=== PATIENT | female | born 1940 | race Caucasian/White ===

== ENCOUNTER 2017-04-09 21:07 | Inpatient (IN) | payer MEDICARE, BC ==
[2017-04-09 21:27] LABS: Basophils # (A) 0.1 k/uL (0-0.2); Basophils % (A) 1 %; CH 30.9; CHCM 33.2; Eosinophils # (A) 0.2 k/uL (0-0.7); Eosinophils % (A) 2 %; HDW 2.26; Luc # (Auto) 0.19; Luc % (Auto) 2; Lymphocytes # (A) 2.2 k/uL (1.0-4.8); Lymphocytes % (A) 19 %; MCH 30.6 pg (25.0-35.0); MCHC 32.7 g/dL (31.0-37.0); MCV 93.6 fL (80.0-100.0); Mean Platelet Volume 7.9; Monocytes # (A) 0.7 k/uL (0-1.0); Monocytes % (A) 5 %; Neutrophils # (A) 8.7 k/uL (1.3-7.7); Neutrophils % (A) 72 %; RBC 5.23 m/uL (3.80-5.40); RDW 14.6 % (11.5-15.5); WBC 12.1 k/uL (3.8-10.6); WBC (Perox) 11.81
[2017-04-09 21:43] LABS: Partial Thromboplastin Time 23.4 sec (22.0-30.0); Prothrombin Time 10.4 sec (9.0-12.0)
--- NOTE | 2017-04-09 21:43 | XR ---
EXAMINATION TYPE: XR chest 2V DATE OF EXAM: 04/09/2017 COMPARISON: NONE HISTORY: Chest pain TECHNIQUE: Frontal and lateral views of the chest are obtained. FINDINGS: Heart is enlarged. There is a large hiatal hernia. There is some linear density at the xander g bases. Thoracic aorta is atheromatous. There are chest leads. IMPRESSION: Hiatal hernia. Cardiomegaly. Patchy atelectasis at the lung bases. No heart failure.
[2017-04-09 21:44] LABS: ALT 41 U/L (9-52); AST 37 U/L (14-36); Alkaline Phosphatase 62 U/L (38-126); Anion Gap 9 mmol/L; Blood Urea Nitrogen 17 mg/dL (7-17); Calcium 9.8 mg/dL (8.4-10.2); Carbon Dioxide 25 mmol/L (22-30); Chloride 99 mmol/L (98-107); Glucose 92 mg/dL (74-99); Magnesium 1.7 mg/dL (1.6-2.3); Non-African American GFR(MDRD) 56 (>60 ml/min/1.73 sqM); Potassium 3.9 mmol/L (3.5-5.1); Sodium 133 mmol/L (137-145); Total Bilirubin 0.4 mg/dL (0.2-1.3); Total Protein 6.6 g/dL (6.3-8.2)
--- NOTE | 2017-04-09 21:49 | ED ---
Chest Pain HPI - General Chief Complaint: Chest Pain Stated Complaint: chest pain Time Seen by Provider: 04/09/17 21:46 Source: EMS Mode of arrival: EMS Limitations: no limitations - History of Present Illness Initial Comments: This patient is a 76-year-old woman who presents to be evaluated for left-sided chest pain that is been going on intermittently since approximately 9 AM this morning. The patient's states that it seems to be associated with her use of albuterol. She has also had periods of her heart racing with a rate up to the 160s. She states that she does have history of SVT. She has seen Dr. Tabares previously for this including having a stress test at cardiology clinic. Patient indicates that the pain is in the left side, intermittent, aching. She has not noticed relieving factors earlier today. It did seem to be made worse by using the albuterol. She did take nitroglycerin and that did help to relieve the last episode. She did have some associated nausea. She states that she is not having pain currently MD Complaint: chest pain Onset/Timin -: days(s) Onset: during rest Pain Location: left chest Pain Radiation: none Severity: moderate Quality: aching Consistency: intermittent Improves With: nothing Worsens With: other (Albuterol) Context: recent illness (COPD) Anginal Symptoms: nausea Other Symptoms: cough Treatments Prior to Arrival: oxygen - Related Data Home Medications Medication Instructions Recorded Confirmed Albuterol Inhaler [Ventolin Hfa 1 - 2 puff INHALATION RT-QID PRN 04/09/17 Inhaler] Ascorbic Acid [Vitamin C] 500 mg PO 04/09/17 04/09/17 Calcium Carbonate [Calcium] 600 mg PO BID 04/09/17 04/09/17 Cholecalciferol [Vitamin D3] 1,000 unit PO 04/09/17 04/09/17 Citalopram Hydrobromide [CeleXA] 20 mg PO 04/09/17 04/09/17 Clopidogrel [Plavix] 75 mg PO DAILY 04/09/17 04/09/17 Isosorbide Mononitrate ER [Imdur] 30 mg PO BID 04/09/17 04/09/17 Losartan/Hydrochlorothiazide 1 tab PO DAILY 04/09/17 04/09/17 [Hyzaar 50-12.5 Tablet] Multivitamins, Thera [Multivitamin 1 tab PO DAILY 04/09/17 04/09/17 (formulary)] Pravastatin Sodium [Pravachol] 10 mg PO Q48H 04/09/17 04/09/17 Ubidecarenone [Co Q-10] 100 mg PO DAILY 04/09/17 04/09/17 Allergies Allergy/AdvReac Type Severity Reaction Status Date / Time No Known Allergies Allergy Verified 04/09/17 21:14 Review of Systems ROS Statement: Those systems with pertinent positive or pertinent negative responses have been documented in the HPI. ROS Other: All systems not noted in ROS Statement are negative. Constitutional: Denies: fever, chills Respiratory: Reports: as per HPI, cough, dyspnea, wheezes. Denies: hemoptysis Cardiovascular: Reports: as per HPI, chest pain, dyspnea on exertion. Denies: palpitations, orthopnea, edema, syncope Gastrointestinal: Reports: nausea. Denies: abdominal pain, vomiting, diarrhea Genitourinary: Denies: dysuria Musculoskeletal: Denies: back pain Skin: Denies: rash Neurological: Denies: headache, weakness, numbness EKG Findings - EKG Results: EKG: interpreted by ERMD, sinus rhythm (Rate 84 bpm), normal axis, normal QRS, normal ST/T - Blocks, [place], Hypertrophy, ST Abn: AV and intraventricular conduction: 1 AV block Past Medical History Past Medical History: COPD, Hypertension, Myocardial Infarction ([place]), Supraventricular Tachycardia (SVT) History of Any Multi-Drug Resistant Organisms: None Reported Past Surgical History: No Surgical Hx Reported Past Psychological History: Anxiety Smoking Status: Never smoker Past Alcohol Use History: None Reported Past Drug Use History: None Reported General Exam Limitations: no limitations General appearance: alert, in no apparent distress Head exam: Present: atraumatic, normocephalic Eye exam: Present: normal appearance. Absent: scleral icterus, conjunctival injection Neck exam: Present: normal inspection Respiratory exam: Present: wheezes. Absent: respiratory distress, rales, rhonchi, stridor, decreased breath sounds, prolonged expiratory Cardiovascular Exam: Present: regular rate, normal rhythm, systolic murmur ( Grade 1/6 systolic ejection murmur). Absent: diastolic murmur, rubs, gallop GI/Abdominal exam: Present: soft. Absent: distended, tenderness, guarding, rebound, mass Extremities exam: Present: normal inspection, normal capillary refill. Absent: pedal edema, calf tenderness Back exam: Present: normal inspection. Absent: CVA tenderness (R), CVA tenderness (L) Neurological exam: Present: alert Skin exam: Present: warm, dry, intact, normal color. Absent: rash Course Vital Signs 04/09/17 04/09/17 04/09/17 21:09 21:22 21:52 Temperature 97.6 F Pulse Rate 168 H Pulse Rate [ 75 [employer] ] Respiratory 22 20 22 Rate Blood Pressure 124/62 O2 Sat by Pulse 94 L 98 Oximetry 04/09/17 04/09/17 04/10/17 21:56 23:00 00:07 Temperature 97.3 F L Pulse Rate 68 72 71 Pulse Rate [ [employer] ] Respiratory 22 20 20 Rate Blood Pressure 119/69 131/78 151/82 O2 Sat by Pulse 93 L 94 L 93 L Oximetry Disposition Clinical Impression: Acute coronary syndrome Disposition[facility] Condition: Fair Referrals: Darby Gómez MD [Primary Care Provider] - 1-2 days
[2017-04-09 22:03] LABS: Creatine Kinase MB 2.3 ng/mL (0.0-2.4)
[2017-04-09 22:06] LABS: Troponin I 0.07 ng/mL (0.000-0.034)
[2017-04-10] MEDS ORDERED: NITROGLYCERIN SL TABS 0.4 MG TAB SUBLINGUAL PRN ×2 (00:28→10:41)
[2017-04-10] MEDS ORDERED: ALBUTEROL NEBULIZED 2.5 MG/3 ML INHALATION PRN (00:31)
[2017-04-10] MEDS: SODIUM CHLORIDE 0.9% 1,000 ML IV SCH ×2 (00:44→11:51)
[2017-04-10] MEDS ORDERED: PRAVASTATIN SODIUM 20 MG TAB PO SCH (00:45)
[2017-04-10] MEDS: HEPARIN SODIUM,PORCINE/D5W PMX 25,000 UNIT in DEXTROSE/WATER 1 500ML.BAG IV SCH (00:46)
[2017-04-10 03:48] LABS: Creatine Kinase MB 2.4 ng/mL (0.0-2.4)
[2017-04-10 03:52] LABS: Troponin I 0.11 ng/mL (0.000-0.034)
[2017-04-10] MEDS ORDERED: NON-FORMULARY DRUG (Ubidecarenone [Co Q-10] 100 MG) PO SCH (09:00)
[2017-04-10] MEDS ORDERED: HEPARIN SODIUM,PORCINE 5,000 UNIT/ML 1 ML VIAL IV STA (09:10)
[2017-04-10] MEDS: LOSARTAN-HCTZ 50-12.5 MG 1 EACH TAB PO SCH (09:15)
[2017-04-10] MEDS: MULTIVITAMINS, THERA 1 EACH TAB PO SCH (09:15)
[2017-04-10] MEDS: ISOSORBIDE MONONITRATE ER 30 MG TAB.ER.24H PO SCH ×2 (09:15→20:55)
[2017-04-10] MEDS: CLOPIDOGREL 75 MG TAB PO SCH (09:15)
[2017-04-10] MEDS: CALCIUM CARBONATE 500 MG CHEWABLE PO SCH ×2 (09:15→20:55)
[2017-04-10] MEDS ORDERED: ALPRAZolam 0.5 MG TAB PO PRN (10:41)
[2017-04-10] MEDS ORDERED: ALPRAZolam 0.25 MG TAB PO PRN (10:41)
[2017-04-10 10:58] LABS: Creatine Kinase MB 2.6 ng/mL (0.0-2.4); Troponin I 0.082 ng/mL (0.000-0.034)
[2017-04-10] MEDS ORDERED: Magnesium Replacement Protocol 1 EACH MISC MISCELLANE PRN (10:58)
[2017-04-10] MEDS ORDERED: Potassium Replacement Protocol 1 EACH MISC MISCELLANE PRN (10:58)
--- NOTE | 2017-04-10 11:14 | P.CRDCN ---
History of Present Illness Consult date: 04/10/17 Reason for Consult (text): chest pain Chief complaint: rapid heart beat and chest pain History of present illness: 68-year-old female patient who follows with Dr. Philippe in the office. Has a known history of coronary artery disease with prior PCI of RCA. History of SVT , hypertension, hyperlipidemia. She presented to the emergency department with complaints of rapid heartbeat and chest discomfort. Apparently she been started on nebulizer treatments yesterday and rapid heart rate started shortly after her first treatment. She also developed some aching sensation in her left chest with some associated nausea. Troponins found to be positive at 0.07 , 0.11 and 0.082. Patient developed some chest discomfort this morning, was not in SVT and pain was relieved with nitroglycerin. A return evaluation of BUN of 17 and creatinine 0.97. Patient did have a stress test in June that showed no evidence of stress-induced ischemia. Her last heart catheterization was done in [place] a couple years ago and according to the patient her stent was patent and there were no other blockages. At time of my examination, patient is resting comfortably in bed. Her pain has been relieved with nitroglycerin. She denies complaints of shortness of breath or palpitations at this time. Past Medical History Past Medical History: COPD, Hypertension, Myocardial Infarction ([place]), Supraventricular Tachycardia (SVT) Additional Past Medical History / Comment(s): Ulcerative Colitis Last Myocardial Infarction Date:: 2006 History of Any Multi-Drug Resistant Organisms: None Reported Past Surgical History: No Surgical Hx Reported Additional Past Surgical History / Comment(s): Eyebrow and lid lift, cataract removal Additional Past Anesthesia/Blood Transfusion Reaction / Comment(s): Patient stated that she was shaky, had a bad headache after anesthetic Past Psychological History: Anxiety Smoking Status: Former smoker Past Alcohol Use History: None Reported Past Drug Use History: None Reported - Past Family History Father Family Medical History: Myocardial Infarction ([place]) Daughter(s) Family Medical History: Cancer Medications and Allergies Home Medications Medication Instructions Recorded Confirmed Type Albuterol Inhaler [Ventolin Hfa 1 - 2 puff INHALATION RT-QID PRN 04/09/17 History Inhaler] Ascorbic Acid [Vitamin C] 500 mg PO HS 04/09/17 04/09/17 History Calcium Carbonate [Calcium] 600 mg PO BID 04/09/17 04/09/17 History Cholecalciferol [Vitamin D3] 1,000 unit PO HS 04/09/17 04/09/17 History Citalopram Hydrobromide [CeleXA] 20 mg PO HS 04/09/17 04/09/17 History Clopidogrel [Plavix] 75 mg PO DAILY 04/09/17 04/09/17 History Isosorbide Mononitrate ER [Imdur] 30 mg PO BID 04/09/17 04/09/17 History Losartan/Hydrochlorothiazide 1 tab PO DAILY 04/09/17 04/09/17 History [Hyzaar 50-12.5 Tablet] Multivitamins, Thera [Multivitamin 1 tab PO DAILY 04/09/17 04/09/17 History (formulary)] Pravastatin Sodium [Pravachol] 10 mg PO Q48H 04/09/17 04/09/17 History Ubidecarenone [Co Q-10] 100 mg PO DAILY 04/09/17 04/09/17 History Allergies Allergy/AdvReac Type Severity Reaction Status Date / Time No Known Allergies Allergy Verified 04/09/17 21:14 Physical Exam Vitals: Vital Signs Temp Pulse Pulse Resp BP BP Pulse Ox 04/10/17 09:09 70 162/88 94 L 04/10/17 08:56 58 L 18 04/10/17 08:47 98.1 F 58 L 18 142/78 94 L 04/10/17 04:00 97.0 F L 55 L 16 143/76 95 04/10/17 01:34 96.9 F L 68 18 150/82 92 L 04/10/17 00:48 97.5 F L 73 20 132/63 93 L 04/10/17 00:07 71 20 151/82 93 L 04/09/17 23:00 72 20 131/78 94 L 04/09/17 21:56 97.3 F L 68 22 119/69 93 L 04/09/17 21:52 75 22 04/09/17 21:22 168 H 20 98 04/09/17 21:09 97.6 F 22 124/62 94 L Intake and Output 04/09/17 04/10/17 04/10/17 22:59 06:59 14:59 Intake Total 150.467 Balance 150.467 Intake: Intake, IV Titration 150.467 Amount Heparin Sodium,Porcine/ 150.467 D5w Pmx 25,000 unit In Dextrose/Water 1 500ml. bag @ 12 UNITS/KG/HR 18.5 mls/hr IV .Q24H [facility] Rx#: [id number] Other: Voiding Method Toilet Toilet # Voids 0 Weight 77.111 kg 77.5 kg PHYSICAL EXAMINATION: HEENT: Head is atraumatic, normocephalic. Pupils equal, round. Neck is supple. There is no elevated jugular venous pressure. HEART EXAMINATION: Heart sounds regular, S1 and S2 normal. No murmur or gallop heard. CHEST EXAMINATION: Lungs are clear to auscultation and precussion. No chest wall tenderness is noted on palpation or with deep breathing. ABDOMEN: Soft, nontender. Bowel sounds are heard. No organomegaly noted. EXTREMITIES: 2+ peripheral pulses with no evidence of peripheral edema and no calf tenderness noted. NEUROLOGIC patient is awake, alert and oriented x3. . Results 04/09/17 21:10 04/09/17 21:10 Cardiac Enzymes 04/09/17 04/09/17 04/10/17 Range/Units 21:10 21:10 03:01 AST 37 H (14-36) U/L CK-MB (CK-2) 2.3 2.4 (0.0-2.4) ng/mL Troponin I 0.070 H* 0.110 H* (0.000-0.034) ng/mL 04/10/17 Range/Units 09:41 AST (14-36) U/L CK-MB (CK-2) 2.6 H* (0.0-2.4) ng/mL Troponin I 0.082 H* (0.000-0.034) ng/mL Coagulation 04/09/17 04/10/17 Range/Units 21:10 06:12 PT 10.4 (9.0-12.0) sec APTT 23.4 41.3 H (22.0-30.0) sec CBC 04/09/17 Range/Units 21:10 WBC 12.1 H (3.8-10.6) k/uL RBC 5.23 (3.80-5.40) m/uL Hgb 16.0 (11.4-16.0) gm/dL Hct 49.0 H (34.0-46.0) % Plt Count 234 (150-450) k/uL Comprehensive Metabolic Panel 04/09/17 Range/Units 21:10 Sodium 133 L (137-145) mmol/L Potassium 3.9 (3.5-5.1) mmol/L Chloride 99 (98-107) mmol/L Carbon Dioxide 25 (22-30) mmol/L BUN 17 (7-17) mg/dL Creatinine 0.97 (0.52-1.04) mg/dL Glucose 92 (74-99) mg/dL Calcium 9.8 (8.4-10.2) mg/dL AST 37 H (14-36) U/L ALT 41 (9-52) U/L Alkaline Phosphatase 62 (38-126) U/L Total Protein 6.6 (6.3-8.2) g/dL Albumin 4.0 (3.5-5.0) g/dL Current Medications Generic Name Dose Route Start Last Admin Trade Name Freq PRN Reason Stop Dose Admin Albuterol Sulfate 2.5 mg 04/10/17 00:31 Ventolin Nebulized INHALATION RT-QID PRN Shortness Of Breath Alprazolam 0.25 mg 04/10/17 10:41 Xanax PO Q6HR PRN Mild Anxiety Alprazolam 0.5 mg 04/10/17 10:41 Xanax PO Q6HR PRN Moderate Anxiety Ascorbic Acid 500 mg 04/10/17 21:00 Vitamin C PO HS [facility] Aspirin 325 mg 04/11/17 09:00 Aspirin PO DAILY [facility] Atorvastatin Calcium 80 mg 04/10/17 11:00 Lipitor PO DAILY [facility] Calcium Carbonate/Glycine 500 mg 04/10/17 09:00 04/10/17 09:15 Tums PO 500 mg BID [facility] Administration Cholecalciferol 1,000 unit 04/10/17 21:00 Vitamin D3 PO HS [facility] Citalopram Hydrobromide 20 mg 04/10/17 21:00 Celexa PO HS [facility] Clopidogrel Bisulfate 75 mg 04/10/17 09:00 04/10/17 09:15 Plavix PO 75 mg DAILY [facility] Administration HCTZ/Losartan Potassium 1 each 04/10/17 09:00 04/10/17 09:15 Hyzaar 50-12.5 PO 1 each DAILY [facility] Administration Heparin Sodium/Dextrose 25,000 500 mls @ 18.5 mls/hr 04/10/17 00:30 04/10/17 08:54 unit/ IV Solution IV 14 units/kg/hr .Q24H [facility] 21.59 mls/hr Protocol Titration 12 UNITS/KG/HR Sodium Chloride 1,000 mls @ 100 mls/hr 04/10/17 00:30 04/10/17 00:44 Saline 0.9% IV 100 mls/hr .Q10H [facility] Administration Isosorbide Mononitrate 30 mg 04/10/17 09:00 04/10/17 09:15 Imdur PO 30 mg BID [facility] Administration Miscellaneous Information 1 each 04/10/17 10:58 Magnesium Per Protocol MISCELLANE DAILY PRN Per Protocol Protocol Miscellaneous Information 1 each 04/10/17 10:58 Potassium Per Protocol MISCELLANE DAILY PRN Per Protocol Protocol Multivitamins 1 each 04/10/17 09:00 04/10/17 09:15 Theragran PO 1 each DAILY [facility] Administration Nitroglycerin 0.4 mg 04/10/17 10:41 Nitrostat SUBLINGUAL Q5M PRN Chest Pain Intake and Output 04/09/17 04/10/17 04/10/17 22:59 06:59 14:59 Intake Total 150.467 Balance 150.467 Intake: Intake, IV Titration 150.467 Amount Heparin Sodium,Porcine/ 150.467 D5w Pmx 25,000 unit In Dextrose/Water 1 500ml. bag @ 12 UNITS/KG/HR 18.5 mls/hr IV .Q24H [facility] Rx#: [id number] Other: Voiding Method Toilet Toilet # Voids 0 Weight 77.111 kg 77.5 kg 04/09/17 21:10 04/09/17 21:10 Assessment and Plan Plan: Assessment and plan #1 paroxysmal supraventricular tachycardia, currently maintaining sinus rhythm #2 chest pain with elevated troponins consistent with non-ST elevated VT #3 hypertension #4 history of stenting of the RCA done in [place] #5 hyperlipidemia After discussion with Dr. Lozano, we will schedule the patient to undergo coronary angiogram tomorrow. We will also obtain a 2-D echo with Doppler. Further recommendations to follow. MAID HOUSEKEEPER note has been reviewed, I agree with a documented findings and plan of care. Patient was seen and examined.
[2017-04-10] MEDS: ATORVASTATIN 80 MG TAB PO SCH (11:54)
--- NOTE | 2017-04-10 12:03 | ECHOF ---
Referral Reason:acute coronary syndrome MEASUREMENTS -------- HEIGHT: 170.2 cm WEIGHT: 77.1 kg BP: 106/69 RVIDd: 3.4 cm (< 3.3) IVSd: 1.3 cm (0.6 - 1.1) LVIDd: 4.0 cm (3.9 - 5.3) LVPWd: 1.2 cm (0.6 - 1.1) IVSs: 1.3 cm LVIDs: 3.3 cm LVPWs: 1.4 cm LA Diam: 3.0 cm (2.7 - 3.8) LAESV Index (A-L): 39.76 ml/m Ao Diam: 3.9 cm (2.0 - 3.7) AV Cusp: 2.4 cm (1.5 - 2.6) LA Diam: 3.6 cm (2.7 - 3.8) MV EXCURSION: 13.536 mm (> 18.000) MV EF SLOPE: 64 mm/s (70 - 150) EPSS: 0.4 cm MV E Enrrique: 0.73 m/s MV DecT: 176 ms MV A Enrrique: 0.83 m/s MV E/A Ratio: 0.89 AR PHT: 926 ms RAP: 20.00 mmHg RVSP: 68.23 mmHg FINDINGS -------- Sinus rhythm. This was a technically adequate study. There is mild concentric left ventricular hypertrophy. Overall left ventricular systolic function is normal with, an EF between 55 - 60 %. The right ventricle is mildly enlarged. LA is severely dilated >40 ml/m2 The right atrial size is normal. There is mild aortic valve sclerosis. There is mild aortic regurgitation. Mild mitral annular calcification present. Mild mitral regurgitation is present. [id number] tricuspid regurgitation present. There is moderate to severe pulmonary hypertension. The right ventricular systolic pressure, as measured by Doppler, is 68.23mmHg. Moderate pulmonic regurgitation. The aortic root size is normal. There is a trivial pericardial effusion present. CONCLUSIONS -------- 1. There is mild concentric left ventricular hypertrophy. 2. There is moderate to severe pulmonary hypertension. 3. The right ventricular systolic pressure, as measured by Doppler, is 68.23mmHg. 4. Moderate pulmonic regurgitation. 5. There is a trivial pericardial effusion present. 6. Overall left ventricular systolic function is normal with, an EF between 55 - 60 %. 7. The right ventricle is mildly enlarged. 8. LA is severely dilated >40 ml/m2 9. There is mild aortic valve sclerosis. 10. There is mild aortic regurgitation. 11. Mild mitral annular calcification present. 12. Mild mitral regurgitation is present. 13. [id number] tricuspid regurgitation present. BUILDING COORDINATOR: Ana Laura Cai RDCS
--- NOTE | 2017-04-10 12:38 | P.HPIM ---
History of Present Illness H&P Date: 04/10/17 Chief Complaint: Chest pain This is a 70-year-old female with past medical history noted below significant for coronary artery disease with prior stent placement approximately 10 years ago who presented to the hospital with worsening chest pain. Patient said that her pain started 2 days ago and is being getting progressively worse. This mostly in the right side of her chest. She said yesterday after taking a breathing treatment she felt that her heart is pounding and was having more pain that she described as sharp in and out of 10 in severity. Her pain was not associated with nausea or dizziness. She presented to the emergency room and her grades EKG showed no acute ischemic changes. Troponin noted to be mildly elevated patient was started on IV heparin was currently admitted to telemetry floor. She was seen and evaluated by cardiology.. Review of Systems Review of system: 14 points review of systems were obtained and were negative except to what were mentioned in the HPI. Past Medical History Past Medical History: COPD, Hypertension, Myocardial Infarction ([place]), Supraventricular Tachycardia (SVT) Additional Past Medical History / Comment(s): Ulcerative Colitis Last Myocardial Infarction Date:: 2006 History of Any Multi-Drug Resistant Organisms: None Reported Past Surgical History: No Surgical Hx Reported Additional Past Surgical History / Comment(s): Eyebrow and lid lift, cataract removal Additional Past Anesthesia/Blood Transfusion Reaction / Comment(s): Patient stated that she was shaky, had a bad headache after anesthetic Past Psychological History: Anxiety Smoking Status: Former smoker Past Alcohol Use History: None Reported Past Drug Use History: None Reported - Past Family History Father Family Medical History: Myocardial Infarction ([place]) Daughter(s) Family Medical History: Cancer Medications and Allergies Home Medications Medication Instructions Recorded Confirmed Type Albuterol Inhaler [Ventolin Hfa 1 - 2 puff INHALATION RT-QID PRN 04/09/17 History Inhaler] Ascorbic Acid [Vitamin C] 500 mg PO HS 04/09/17 04/09/17 History Calcium Carbonate [Calcium] 600 mg PO BID 04/09/17 04/09/17 History Cholecalciferol [Vitamin D3] 1,000 unit PO HS 04/09/17 04/09/17 History Citalopram Hydrobromide [CeleXA] 20 mg PO HS 04/09/17 04/09/17 History Clopidogrel [Plavix] 75 mg PO DAILY 04/09/17 04/09/17 History Isosorbide Mononitrate ER [Imdur] 30 mg PO BID 04/09/17 04/09/17 History Losartan/Hydrochlorothiazide 1 tab PO DAILY 04/09/17 04/09/17 History [Hyzaar 50-12.5 Tablet] Multivitamins, Thera [Multivitamin 1 tab PO DAILY 04/09/17 04/09/17 History (formulary)] Pravastatin Sodium [Pravachol] 10 mg PO Q48H 04/09/17 04/09/17 History Ubidecarenone [Co Q-10] 100 mg PO DAILY 04/09/17 04/09/17 History Allergies Allergy/AdvReac Type Severity Reaction Status Date / Time No Known Allergies Allergy Verified 04/09/17 21:14 Physical Exam Vitals: Vital Signs Temp Pulse Pulse Resp BP BP Pulse Ox 04/10/17 09:09 70 162/88 94 L 04/10/17 08:56 58 L 18 04/10/17 08:47 98.1 F 58 L 18 142/78 94 L 04/10/17 04:00 97.0 F L 55 L 16 143/76 95 04/10/17 01:34 96.9 F L 68 18 150/82 92 L 04/10/17 00:48 97.5 F L 73 20 132/63 93 L 04/10/17 00:07 71 20 151/82 93 L 04/09/17 23:00 72 20 131/78 94 L 04/09/17 21:56 97.3 F L 68 22 119/69 93 L 04/09/17 21:52 75 22 04/09/17 21:22 168 H 20 98 04/09/17 21:09 97.6 F 22 124/62 94 L Intake and Output 04/09/17 04/10/17 04/10/17 22:59 06:59 14:59 Intake Total 150.467 Balance 150.467 Intake: Intake, IV Titration 150.467 Amount Heparin Sodium,Porcine/ 150.467 D5w Pmx 25,000 unit In Dextrose/Water 1 500ml. bag @ 12 UNITS/KG/HR 18.5 mls/hr IV .Q24H [facility] Rx#: [id number] Other: Voiding Method Toilet Toilet # Voids 0 Weight 77.111 kg 77.5 kg General: The patient is awake and alert, in no distress Eye: there is normal conjunctiva bilaterally. Neck: The neck is supple, there is no JVD. Cardiovascular: Normal S1-S2, no S3-S4, no murmurs. Respiratory: Lungs clear to auscultation bilaterally Gastrointestinal: Abdomen is soft, nontender Musculoskeletal: There is no pedal edema. Neurological:. Speech is normal. Skin: Skin is warm and dry Results CBC & Chem 7: 04/09/17 21:10 04/09/17 21:10 Labs: Abnormal Lab Results - Last 24 Hours (Table) 04/09/17 04/09/17 04/09/17 Range/Units 21:10 21:10 21:10 WBC 12.1 H (3.8-10.6) k/uL Hct 49.0 H (34.0-46.0) % Neutrophils # 8.7 H (1.3-7.7) k/uL APTT (22.0-30.0) sec Sodium 133 L (137-145) mmol/L AST 37 H (14-36) U/L CK-MB (CK-2) (0.0-2.4) ng/mL Troponin I 0.070 H* (0.000-0.034) ng/mL 04/10/17 04/10/17 04/10/17 Range/Units 03:01 06:12 09:41 WBC (3.8-10.6) k/uL Hct (34.0-46.0) % Neutrophils # (1.3-7.7) k/uL APTT 41.3 H (22.0-30.0) sec Sodium (137-145) mmol/L AST (14-36) U/L CK-MB (CK-2) 2.6 H* (0.0-2.4) ng/mL Troponin I 0.110 H* 0.082 H* (0.000-0.034) ng/mL Thrombosis Risk Factor Assmnt - Choose All That Apply Any of the Below Risk Factors Present?: No Each Risk Factor Represents 3 Points: Age 75 years or older Thrombosis Risk Factor Assessment Total Risk Factor Score: 3 Thrombosis Risk Factor Assessment Level: Moderate Risk Assessment and Plan Plan: 1. Non-ST elevation myocardial infarction, will continue optimal medical management. Patient was seen by cardiology. Plan for left heart catheterization tomorrow. 2. Acute on chronic hypoxic respiratory failure on home O2 as needed 3. History of supraventricular tachycardia: Now in sinus rhythm 4. Coronary artery disease with prior stent placement to RCA approximately 10 years ago 5. Mixed hyperlipidemia: Will check fasting lipid profile in the morning Today, I reviewed her medication list and lab work results. Echocardiogram showed preserved ejection fraction of 55-60%. There was no significant valvular abnormalities noted. There is moderate to severe pulmonary hypertension With moderate pulmonnic regurgitation. Patient scheduled for left heart cath in the morning.
[2017-04-10] MEDS: CHOLECALCIFEROL 1,000 UNIT TAB PO SCH (20:54)
[2017-04-10] MEDS: CITALOPRAM HYDROBROMIDE 20 MG TAB PO SCH (20:54)
[2017-04-10] MEDS: ASCORBIC ACID 500 MG TAB PO SCH (20:55)
[2017-04-11] MEDS: SODIUM CHLORIDE 0.9% 1,000 ML IV SCH ×2 (03:16→07:30)
[2017-04-11] MEDS: ATORVASTATIN 80 MG TAB PO SCH (06:11)
[2017-04-11] MEDS: ASPIRIN 325 MG TAB PO SCH (06:12)
[2017-04-11] MEDS: CALCIUM CARBONATE 500 MG CHEWABLE PO SCH ×2 (06:12→21:19)
[2017-04-11] MEDS: ISOSORBIDE MONONITRATE ER 30 MG TAB.ER.24H PO SCH ×2 (06:12→21:19)
[2017-04-11] MEDS: CLOPIDOGREL 75 MG TAB PO SCH (06:12)
[2017-04-11] MEDS: MULTIVITAMINS, THERA 1 EACH TAB PO SCH (06:13)
[2017-04-11] MEDS: LOSARTAN-HCTZ 50-12.5 MG 1 EACH TAB PO SCH (06:13)
[2017-04-11 06:18] LABS: Basophils # (A) 0.1 k/uL (0-0.2); Basophils % (A) 1 %; CH 30.7; Eosinophils # (A) 0.3 k/uL (0-0.7); Eosinophils % (A) 3 %; HCT 47.4 % (34.0-46.0); HDW 2.26; HGB 14.9 gm/dL (11.4-16.0); Luc # (Auto) 0.22; Luc % (Auto) 2; Lymphocytes # (A) 2.2 k/uL (1.0-4.8); Lymphocytes % (A) 23 %; MCH 30.3 pg (25.0-35.0); MCHC 31.4 g/dL (31.0-37.0); MCV 96.3 fL (80.0-100.0); Mean Platelet Volume 7.9; Monocytes # (A) 0.4 k/uL (0-1.0); Monocytes % (A) 4 %; Neutrophils # (A) 6.3 k/uL (1.3-7.7); Neutrophils % (A) 67 %; RBC 4.92 m/uL (3.80-5.40); WBC 9.4 k/uL (3.8-10.6); WBC (Perox) 9.12
[2017-04-11] MEDS: HEPARIN SODIUM,PORCINE/D5W PMX 25,000 UNIT in DEXTROSE/WATER 1 500ML.BAG IV SCH (06:36)
[2017-04-11 07:12] LABS: Anion Gap 7 mmol/L; Blood Urea Nitrogen 13 mg/dL (7-17); Carbon Dioxide 27 mmol/L (22-30); Chloride 104 mmol/L (98-107); Cholesterol 156 mg/dL (<200); Glucose 86 mg/dL (74-99); HDL Cholesterol 78 mg/dL (40-60); Magnesium 1.7 mg/dL (1.6-2.3); Non-African American GFR(MDRD) >60 (>60 ml/min/1.73 sqM); Potassium 4.7 mmol/L (3.5-5.1); Sodium 138 mmol/L (137-145); Triglycerides 92 mg/dL (<150)
[2017-04-11 07:59] VITALS: PULSE 63
[2017-04-11] MEDS ORDERED: amLODIPine 5 MG TAB PO STA (08:25)
[2017-04-11] MEDS ORDERED: LIDOCAINE 2% INJ 20 MG/ML (20 ML MDV) ONE (11:04)
[2017-04-11] MEDS ORDERED: VERAPAMIL 2.5 MG/ML 2 ML AMP ONE ×2 (11:05)
[2017-04-11] MEDS ORDERED: MIDAZOLAM 2 MG/2 ML VIAL ONE (11:06)
[2017-04-11] MEDS ORDERED: HEPARIN SODIUM 1,000 UN/ML (10ML VL) ONE (11:06)
[2017-04-11] MEDS ORDERED: LIDOCAINE 2% INJ 20 MG/ML SQ ONE (11:18)
[2017-04-11] MEDS ORDERED: MIDAZOLAM 2 MG/2 ML VIAL IVP ONE (11:19)
[2017-04-11] MEDS ORDERED: SODIUM CHLORIDE 0.9% 1,000 ML IV ONE (11:20)
[2017-04-11] MEDS ORDERED: VERAPAMIL SYRINGE (5 MG/10 ML) INTRAARTER ONE ×2 (11:24→11:33)
[2017-04-11] MEDS ORDERED: HEPARIN SODIUM 1,000 UN/ML (10ML VL) IV ONE (11:24)
[2017-04-11] MEDS ORDERED: IOHEXOL 350 MG/ML 100 ML BOTTLE INJ ONE (11:33)
[2017-04-11] MEDS ORDERED: RX INFO: IV CONTRAST WAS GIVEN 1 EACH MISC MISCELLANE PRN (11:37)
[2017-04-11] MEDS ORDERED: SODIUM CHLORIDE 0.9% 1,000 ML IV SCH (11:45)
--- NOTE | 2017-04-11 12:00 | P.PN ---
Subjective Patient is scheduled for left heart cath today. Objective - Vital Signs Vital signs: Vital Signs Temp 97.4 F L 04/11/17 07:54 Pulse 63 04/11/17 08:00 Resp 16 04/11/17 07:54 BP 178/89 04/11/17 07:54 Pulse Ox 92 L 04/11/17 04:00 Intake & Output 04/10/17 04/11/17 04/11/17 18:59 06:59 18:59 Intake Total 330.467 300 100 Output Total 300 Balance 330.467 0 100 Weight 76.7 kg Intake: IV 100 Intake, IV Titration 150.467 300 Amount Heparin Sodium,Porcine/ 150.467 D5w Pmx 25,000 unit In Dextrose/Water 1 500ml. bag @ 12 UNITS/KG/HR 18.5 mls/hr IV .Q24H [facility] Rx#: [id number] Sodium Chloride 0.9% 1, 300 000 ml @ 100 mls/hr IV . Q10H [facility] Rx#:[id number] Oral 180 Output: Urine 300 Other: Voiding Method Toilet Toilet # Voids 1 1 1 - Labs CBC & Chem 7: 04/11/17 05:52 04/11/17 05:52 Labs: Abnormal Lab Results - Last 24 Hours (Table) 04/10/17 04/11/17 04/11/17 Range/Units 15:31 00:18 05:52 Hct (34.0-46.0) % APTT 101.4 H* 50.5 H (22.0-30.0) sec HDL Cholesterol 78 H (40-60) mg/dL 04/11/17 Range/Units 05:52 Hct 47.4 H (34.0-46.0) % APTT (22.0-30.0) sec HDL Cholesterol (40-60) mg/dL Assessment and Plan Plan: 1. Non-ST elevation myocardial infarction, will continue optimal medical management. Patient was seen by cardiology. Plan for left heart catheterization today. 2. Acute on chronic hypoxic respiratory failure on home O2 as needed 3. History of supraventricular tachycardia: Now in sinus rhythm 4. Coronary artery disease with prior stent placement to RCA approximately 10 years ago 5. Mixed hyperlipidemia: Will check fasting lipid profile in the morning Today, I reviewed her medication list and lab work results. Echocardiogram showed preserved ejection fraction of 55-60%. There was no significant valvular abnormalities noted. There is moderate to severe pulmonary hypertension With moderate pulmonnic regurgitation.
[2017-04-11] MEDS: CITALOPRAM HYDROBROMIDE 20 MG TAB PO SCH (21:19)
[2017-04-11] MEDS: ASCORBIC ACID 500 MG TAB PO SCH (21:19)
[2017-04-11] MEDS: CHOLECALCIFEROL 1,000 UNIT TAB PO SCH (21:19)
[2017-04-12] MEDS: HEPARIN SODIUM,PORCINE/D5W PMX 25,000 UNIT in DEXTROSE/WATER 1 500ML.BAG IV SCH (02:48)
[2017-04-12 06:33] LABS: Basophils # (A) 0.1 k/uL (0-0.2); Basophils % (A) 1 %; CH 30.3; CHCM 32.4; Eosinophils # (A) 0.3 k/uL (0-0.7); Eosinophils % (A) 4 %; HCT 44.1 % (34.0-46.0); HDW 2.26; HGB 14.3 gm/dL (11.4-16.0); Luc # (Auto) 0.18; Luc % (Auto) 2; Lymphocytes # (A) 1.7 k/uL (1.0-4.8); Lymphocytes % (A) 18 %; MCH 30.4 pg (25.0-35.0); MCHC 32.4 g/dL (31.0-37.0); MCV 93.9 fL (80.0-100.0); Mean Platelet Volume 7.4; Monocytes # (A) 0.4 k/uL (0-1.0); Monocytes % (A) 5 %; Neutrophils # (A) 6.6 k/uL (1.3-7.7); Neutrophils % (A) 71 %; RDW 13.9 % (11.5-15.5); WBC 9.3 k/uL (3.8-10.6); WBC (Perox) 9.28
[2017-04-12 06:51] LABS: Anion Gap 6 mmol/L; Blood Urea Nitrogen 9 mg/dL (7-17); Calcium 9.2 mg/dL (8.4-10.2); Carbon Dioxide 27 mmol/L (22-30); Chloride 103 mmol/L (98-107); Glucose 81 mg/dL (74-99); Magnesium 1.6 mg/dL (1.6-2.3); Non-African American GFR(MDRD) >60 (>60 ml/min/1.73 sqM); Potassium 4.4 mmol/L (3.5-5.1); Sodium 136 mmol/L (137-145)
[2017-04-12] MEDS: MULTIVITAMINS, THERA 1 EACH TAB PO SCH (07:57)
[2017-04-12] MEDS: CALCIUM CARBONATE 500 MG CHEWABLE PO SCH (07:57)
[2017-04-12] MEDS: ATORVASTATIN 80 MG TAB PO SCH (07:57)
[2017-04-12] MEDS: CLOPIDOGREL 75 MG TAB PO SCH (07:57)
[2017-04-12] MEDS: ISOSORBIDE MONONITRATE ER 30 MG TAB.ER.24H PO SCH (07:57)
[2017-04-12] MEDS: ASPIRIN 325 MG TAB PO SCH (07:57)
[2017-04-12] MEDS: LOSARTAN-HCTZ 50-12.5 MG 1 EACH TAB PO SCH (07:57)
[2017-04-12 12:04] VITALS: BP 145/86; RESP 18; TEMP 97.9
--- NOTE | 2017-04-12 13:09 | P.PN ---
Subjective Principal diagnosis: None systemic This is a pleasant 76-year-old female patient with a known CAD and prior stenting of the RCA, history of SVT, hypertension, dyslipidemia presented to the hospital complaining of chest discomfort and she was ruled in for acute non-ST me. She underwent a heart catheterization and that showed mild to moderate in-stent restenosis of the RCA. She continues to be asymptomatic from the cardiovascular standpoint of view and she continues to be hemodynamic stable. From a cardiovascular standpoint of view, the patient can be discharged home Objective - Vital Signs Vital signs: Vital Signs Temp 97.9 F 04/12/17 11:55 Pulse 63 04/11/17 08:00 Resp 18 04/12/17 11:55 BP 145/86 04/12/17 11:55 Pulse Ox 92 L 04/12/17 11:55 Intake & Output 04/11/17 04/12/17 04/12/17 18:59 06:59 18:59 Intake Total 437 Output Total 600 Balance -163 Intake: IV 100 Oral 337 Output: Urine 600 Other: Voiding Method Toilet # Voids 1 1 - Constitutional General appearance: Present: no acute distress - Respiratory Respiratory: bilateral: CTA - Cardiovascular Rhythm: regular Heart sounds: normal: S1, S2 - Labs CBC & Chem 7: 04/12/17 06:03 04/12/17 06:03 Labs: Abnormal Lab Results - Last 24 Hours (Table) 04/12/17 Range/Units 06:03 Sodium 136 L (137-145) mmol/L Assessment and Plan Plan: This is a pleasant 76-year-old female patient who was admitted was non -STEMI and underwent heart catheterization which showed mild to moderate nonobstructive CAD. From a cardiovascular standpoint of view, he can be discharged home.
--- NOTE | 2017-04-12 17:12 | P.DS ---
Providers Date of admission: 04/10/17 00:28 Expected date of discharge: 04/12/17 Attending physician: Steve Cowan Consults: 04/10/17 00:28 Consult Physician Urgent Consulting Provider: Cale Lozano Consult Reason/Comments: acute coronary syndrome Do you want consulting provider notified?: Yes Primary care physician: [facility] Course: 1. Non-ST elevation myocardial infarction, will continue optimal medical management. Patient was seen by cardiology. She underwent left heart catheterization showed mild to moderate in-stent restenosis of the RCA. She was cleared by cardiology for discharge home. 2. Acute on chronic hypoxic respiratory failure on home O2 as needed 3. History of supraventricular tachycardia: Now in sinus rhythm. Advised to avoid use of albuterol at home and use Xopenex instead. 4. Coronary artery disease with prior stent placement to RCA approximately 10 years ago 5. Mixed hyperlipidemia: Cholesterol level at goal. Patient Condition at Discharge: Fair Plan - Discharge Summary New Discharge Prescriptions: Continue Multivitamins, Thera [Multivitamin (formulary)] 1 tab PO DAILY Cholecalciferol [Vitamin D3] 1,000 unit PO HS Calcium Carbonate [Calcium] 600 mg PO BID Ascorbic Acid [Vitamin C] 500 mg PO HS Ubidecarenone [Co Q-10] 100 mg PO DAILY Losartan/Hydrochlorothiazide [Hyzaar 50-12.5 Tablet] 1 tab PO DAILY Isosorbide Mononitrate ER [Imdur] 30 mg PO BID Clopidogrel [Plavix] 75 mg PO DAILY Citalopram Hydrobromide [CeleXA] 20 mg PO HS Changed Pravastatin Sodium [Pravachol] 10 mg PO HS #0 Discontinued Albuterol Inhaler [Ventolin Hfa Inhaler] 1 - 2 puff INHALATION RT-QID PRN PRN Reason: Shortness Of Breath Discharge Medication List Ascorbic Acid [Vitamin C] 500 mg PO HS 04/09/17 [History] Calcium Carbonate [Calcium] 600 mg PO BID 04/09/17 [History] Cholecalciferol [Vitamin D3] 1,000 unit PO HS 04/09/17 [History] Citalopram Hydrobromide [CeleXA] 20 mg PO HS 04/09/17 [History] Clopidogrel [Plavix] 75 mg PO DAILY 04/09/17 [History] Isosorbide Mononitrate ER [Imdur] 30 mg PO BID 04/09/17 [History] Losartan/Hydrochlorothiazide [Hyzaar 50-12.5 Tablet] 1 tab PO DAILY 04/09/17 [ History] Multivitamins, Thera [Multivitamin (formulary)] 1 tab PO DAILY 04/09/17 [History ] Ubidecarenone [Co Q-10] 100 mg PO DAILY 04/09/17 [History] Pravastatin Sodium [Pravachol] 10 mg PO HS #0 04/12/17 [Rx] Follow up Appointment(s)/Referral(s): Cale Lozano MD [STAFF PHYSICIAN] - 2 Weeks Darby Gómez MD [Primary Care Provider] - 1-2 days Discharge Disposition: HOME SELF-CARE
--- NOTE | 2017-04-12 18:15 | CC ---
DATE OF SERVICE: 04/11/17 PERFORMING PHYSICIAN: Cale Lozano M.D., casing crew. PROCEDURE PERFORMED: 1. Selective right and left coronary angiogram. 2. Left heart catheterization. 3. Left ventriculography. INDICATIONS: This is a pleasant 76 year old female patient who is known to have CAD, and prior stenting of the RCA who was admitted to the hospital with chest discomfort and ruled in for acute non-STEMI. APPROACH: Right radial artery. COMPLICATIONS: None. LEVEL OF SEDATION: Moderate. SEDATION LENGTH: 20 minutes. PROCEDURE DESCRIPTION: After obtaining informed consent, the patient was brought to the cardiac blender laborer. The right radial artery was cannulated using micropuncture technique. The micropuncture wire passed easily. Then, I placed a 6 Libyan sheath in the right radial artery. Subsequently I gave the patient 2 mg of Verapamil IA and 3000 units of heparin IV. After that, I did selective right and left coronary angiogram using JR4 and JL3.5 catheters. I did after that left heart catheterization and LV gram using 6 Libyan pigtail catheter. The procedure was completed without complication. SELECTIVE CORONARY ANGIOGRAM: 1. The right coronary artery is a large caliber vessel and it is a dominant vessel. The proximal RCA, the stented with mild to moderate in stent restenosis. The mid RCA is normal and RCA distally appeared to have mild disease only and bifurcates into PLV and 2. The left main is angiographically normal. It bifurcates into left circumflex and left anterior descending artery. 3. The left circumflex is a large dominant vessel and it is a nondominant vessel. The proximal circ is normal and gives rises into a large first OM branch which appeared to be angiographically normal. The mid left circumflex is tortuous but angiographically normal and the circ after that is angiographically normal. 4. The left anterior descending coronary artery: The proximal left anterior descending artery is angiographically normal. It gives rise into first diag branches which appeared to be angiographically normal. The mid LAD and distal LAD appears to be angiographically normal. HEMODYNAMICS: The left ventricular end diastolic pressure was 8 mmHg and no gradient was identified across the aortic valve. Left ventriculography was performed in MONTES projection and using a power injection. The left ventricular systolic function is normal with EF of 55 to 60 % and normal wall motion. CONCLUSION: 1. Intermediate in stent restenosis involving the proximal RCA stent. 2. Normal left circumflex. 3. Normal left anterior descending artery. 4. Normal left ventricular systolic function. POSTPROCEDURE MANAGEMENT: 1. Maximize medical treatment. 2. Follow-up with the patient. RAHEEM
== END 2017-04-12 17:50 | disposition home or self-care (01) | DRG 280 ==
LOC: EC 21:07 → SUPCPDRO 21:07 → 6SEL 04-10 00:28
PROVIDERS: ADMIT Internal Medicine; ATTEND Internal Medicine
PROC: B2111ZZ Fluoroscopy of Multiple Coronary Arteries using Low Osmolar Contrast (ICD-10-PCS; 2017-04-11)
PROC: B2151ZZ Fluoroscopy of Left Heart using Low Osmolar Contrast (ICD-10-PCS; 2017-04-11)
PROC: 4A023N7 Measurement of Cardiac Sampling and Pressure, Left Heart, Percutaneous Approach (ICD-10-PCS; principal; 2017-04-11 10:00)
DX: I21.4 Non-ST elevation (NSTEMI) myocardial infarction (principal); J96.21 Acute and chronic respiratory failure with hypoxia; I27.2 Other secondary pulmonary hypertension; I47.1 Supraventricular tachycardia; T82.855A Stenosis of coronary artery stent, initial encounter; Z99.81 Dependence on supplemental oxygen; J44.9 Chronic obstructive pulmonary disease, unspecified; I25.10 Atherosclerotic heart disease of native coronary artery without angina pectoris; E78.2 Mixed hyperlipidemia; I25.2 Old myocardial infarction; I37.1 Nonrheumatic pulmonary valve insufficiency; I44.0 Atrioventricular block, first degree; I10 Essential (primary) hypertension; F41.9 Anxiety disorder, unspecified; R11.0 Nausea; Z87.891 Personal history of nicotine dependence; Z82.49 Family history of ischemic heart disease and other diseases of the circulatory system; Z79.02 Long term (current) use of antithrombotics/antiplatelets; Z79.899 Other long term (current) drug therapy; Z87.19 Personal history of other diseases of the digestive system; Z98.49 Cataract extraction status, unspecified eye; Z80.9 Family history of malignant neoplasm, unspecified; Y83.1 Surgical operation with implant of artificial internal device as the cause of abnormal reaction of the patient, or of later complication, without mention of misadventure at the time of the procedure
CPT/HCPCS: 36415; 71020; 80048; 80053; 80061; 82550; 82553; 83735; 84484; 85025; 85610; 85730; 93005; 93306; 93458; 96365; 99285

== ENCOUNTER 2017-04-22 16:16 | Inpatient (IN) | payer MEDICARE, BC ==
[2017-04-22] MEDS: VERAPAMIL 40 MG TAB PO SCH ×2 (17:56→23:47)
[2017-04-22] MEDS ORDERED: ALBUTEROL NEBULIZED 2.5 MG/3 ML INHALATION PRN (18:56)
[2017-04-22] MEDS ORDERED: ALPRAZolam 0.5 MG TAB PO PRN (18:56)
[2017-04-22] MEDS: CHOLECALCIFEROL 1,000 UNIT TAB PO SCH (20:29)
[2017-04-22] MEDS: CITALOPRAM HYDROBROMIDE 20 MG TAB PO SCH (20:29)
[2017-04-22] MEDS: B COMPLEX-VIT C-VIT E-ZINC 1 EACH TAB PO SCH (20:29)
[2017-04-22] MEDS: ASCORBIC ACID 500 MG TAB PO SCH (20:29)
[2017-04-22] MEDS ORDERED: ISOSORBIDE MONONITRATE ER 30 MG TAB.ER.24H PO SCH (21:00)
[2017-04-22] MEDS ORDERED: NON-FORMULARY DRUG (Ubidecarenone [Co Q-10] 100 MG) PO SCH (21:00)
[2017-04-22] MEDS: SYMBICORT 160-4.5 MCG INHALER INHALATION SCH (21:10)
[2017-04-23] MEDS: PANTOPRAZOLE 40 MG TABLET PO SCH (06:03)
[2017-04-23 06:38] LABS: Basophils # (A) 0.1 k/uL (0-0.2); Basophils % (A) 1 %; CH 31.1; CHCM 32.4; Eosinophils # (A) 0.3 k/uL (0-0.7); Eosinophils % (A) 3 %; HCT 46.5 % (34.0-46.0); HDW 2.22; HGB 14.6 gm/dL (11.4-16.0); Luc # (Auto) 0.16; Luc % (Auto) 2; Lymphocytes # (A) 2.1 k/uL (1.0-4.8); Lymphocytes % (A) 22 %; MCH 30.3 pg (25.0-35.0); MCHC 31.4 g/dL (31.0-37.0); MCV 96.5 fL (80.0-100.0); Mean Platelet Volume 7.4; Monocytes # (A) 0.4 k/uL (0-1.0); Monocytes % (A) 4 %; Neutrophils # (A) 6.4 k/uL (1.3-7.7); Neutrophils % (A) 68 %; RBC 4.82 m/uL (3.80-5.40); RDW 15.5 % (11.5-15.5); WBC 9.4 k/uL (3.8-10.6); WBC (Perox) 9.34
[2017-04-23 06:46] LABS: Anion Gap 8 mmol/L; Blood Urea Nitrogen 17 mg/dL (7-17); Calcium 9.1 mg/dL (8.4-10.2); Carbon Dioxide 23 mmol/L (22-30); Chloride 103 mmol/L (98-107); Glucose 81 mg/dL (74-99); Non-African American GFR(MDRD) >60 (>60 ml/min/1.73 sqM); Potassium 4.4 mmol/L (3.5-5.1); Sodium 134 mmol/L (137-145)
[2017-04-23] MEDS: CLOPIDOGREL 75 MG TAB PO SCH (08:34)
[2017-04-23] MEDS: PRAVASTATIN SODIUM 20 MG TAB PO SCH (08:34)
[2017-04-23] MEDS ORDERED: HYDROCHLOROTHIAZIDE 12.5 MG CAP PO SCH (09:00)
[2017-04-23] MEDS ORDERED: IV FLUID CONTINUATION 800 ML IV ONE (10:15)
[2017-04-23] MEDS ORDERED: CALCIUM CHLORIDE 100 MG/ML 10 ML SYRINGE ONE (10:16)
[2017-04-23] MEDS ORDERED: ISOPROTERENOL 250 MCG/1.25 ML SYR IV ONE (10:16)
[2017-04-23] MEDS ORDERED: MIDAZOLAM 2 MG/2 ML VIAL ONE (10:16)
[2017-04-23] MEDS ORDERED: PROPOFOL 10 MG/ML 20 ML VIAL IV ONE (10:16)
[2017-04-23] MEDS ORDERED: ATROPINE SULFATE 0.1 MG/ML 10ML SYRINGE ONE (10:16)
[2017-04-23] MEDS ORDERED: fentaNYL (PF) 50 MCG/ML 2 ML AMP ONE (10:16)
[2017-04-23] MEDS ORDERED: IODIXANOL 320 MG/ML 100 ML IV ONE (10:30)
[2017-04-23] MEDS ORDERED: LIDOCAINE 2% INJ 20 MG/ML SQ ONE ×3 (10:40→10:49)
[2017-04-23] MEDS: SYMBICORT 160-4.5 MCG INHALER INHALATION SCH ×2 (11:53→21:01)
[2017-04-23] MEDS ORDERED: ACETAMINOPHEN IV (For NPO) 1,000 MG in EMPTY BAG 1 BAG IVPB ONE (12:52)
[2017-04-23] MEDS ORDERED: ACETAMINOPHEN TAB 325 MG TAB PO PRN (12:52)
--- NOTE | 2017-04-23 12:58 | P.PCN ---
Preoperative Diagnosis: Procedure Comprehensive diagnostic EP study with attempted arrhythmia induction Coronary sinus pacing and recording Programmed stimulation following Isuprel 3-D mapping of the slow pathway SVT ablation Indication for the procedure Incessant SVT despite medications. When I saw her yesterday the arrhythmia terminated with coronary sinus massage right-sided but recurred within a few minutes. Rapid tachycardia symptomatic positive Wellens sign consistent with AV subhash reentry Underlying AV node disease and bradycardia intolerant of low-dose beta blockers , which precipitates significant bradycardia Result Successful ablation of the slow pathway, SVT rendered noninducible, occasional echo beats induced on high-dose Isuprel Baseline IA interval was mildly prolonged at 238 ms. No complications, no evidence for fast pathway injury postprocedure Plan Overnight monitoring on telemetry, twelve-lead ECG tomorrow, discharge home and follow with Dr. Philippe in about 2 weeks, 24 hour Holter monitor pickup that day, discussed with Dr. Lozano Postoperative Diagnosis: Procedure(s) Performed: Implants: Disposition: floor Indications for Procedure: Operative Findings: Description of Procedure:
--- NOTE | 2017-04-23 13:07 | P.PCN ---
Preoperative Diagnosis: Patient was brought to the EP lab in a fasting state. Written informed consent was obtained prior to the procedure. The right groin was prepped and draped as per protocol and 3 venous sheaths were placed in the right femoral vein via these 3 diagnostic cath was replaced, high right atrium, His bundle and right ventricle. The left axillary vein was accessed via a 6-Pashto sheath the Lan sinus catheter was placed. Sinus cycle length 1179 ms, RI interval 238 ms, QRS 101 ms, QT interval 463 ms. PH 178 HV 37 right bundle branch block pattern incomplete Atrial pacing from the coronary sinus was performed single echo beats were noted Lan sinus ERP 700/4:30 milliseconds. VA Wenckebach block 5:30 milliseconds His bundle pacing was performed and subhash response is noted. AV node Wenckebach block after IV calcium 550 ms. Atropine IV 0.5 mg given in the RI interval improved to 210 ms and AV node Wenckebach block improved to 460 ms. Since the patient had incessant SVT no further stimulation was performed and mapping and ablation was begun 3-D mapping of the fast pathway of the slow pathway area was performed. The his cloud and the coronary sinus were tagged. Slow pathway was mapped abdomen spike potential was noted RF ablation was applied junctional rhythm was obtained RI interval remained stable Following successful ablation repeat EP study was performed both on and off Isuprel and up to high dose Isuprel as well as an recovery On Isuprel AV node Wenckebach block 370 ms no slow pathway conduction with straight pacing. AV node ERP 500\3:30 milliseconds from the high right atrium. AV node Wenckebach block from the coronary sinus was for 20 ms. Atrial extra stimulation performed from multiple sites in the coronary sinus and the high right atrium occasional echo beats were noted no SVT was induced next Isuprel was stopped AV node Wenckebach block from the high right atrium was 330 ms no antegrade slow pathway conduction with straight pacing WAS then removed and patient was transferred back to telemetry Result successful mapping and ablation of the slow pathway for treatment of incessant SVT No acute complications Plan no AV node blocking drugs since patient has AV node disease as well as sinus bradycardia and becomes very bradycardic on low-dose AV node blocking drugs Postoperative Diagnosis: Procedure(s) Performed: Implants: Anesthesia: MAC Disposition: floor Indications for Procedure: Operative Findings: Description of Procedure:
[2017-04-23] MEDS: MULTIVITAMINS, THERA 1 EACH TAB PO SCH (15:06)
[2017-04-23] MEDS: VERAPAMIL 40 MG TAB PO SCH (19:33)
[2017-04-23] MEDS: ASCORBIC ACID 500 MG TAB PO SCH (20:38)
[2017-04-23] MEDS: CHOLECALCIFEROL 1,000 UNIT TAB PO SCH (20:38)
[2017-04-23] MEDS: B COMPLEX-VIT C-VIT E-ZINC 1 EACH TAB PO SCH (20:38)
[2017-04-23] MEDS: CITALOPRAM HYDROBROMIDE 20 MG TAB PO SCH (20:38)
[2017-04-24 03:15] VITALS: TEMP 96.7
[2017-04-24 05:12] VITALS: PULSE 61
[2017-04-24] MEDS: PANTOPRAZOLE 40 MG TABLET PO SCH (06:51)
[2017-04-24] MEDS: SYMBICORT 160-4.5 MCG INHALER INHALATION SCH (08:24)
[2017-04-24] MEDS: CLOPIDOGREL 75 MG TAB PO SCH (08:34)
[2017-04-24] MEDS: PRAVASTATIN SODIUM 20 MG TAB PO SCH (08:35)
[2017-04-24] MEDS: MULTIVITAMINS, THERA 1 EACH TAB PO SCH (08:35)
--- NOTE | 2017-04-24 09:59 | P.DS ---
Providers Date of admission: 04/22/17 16:22 Attending physician: Cale Lozano Consults: 04/22/17 19:08 Consult Physician Routine Consulting Provider: Linden Tabares Consult Reason/Comments: Ablation for 04/23 or Tuesday 04/24 Do you want consulting provider notified?: Yes Primary care physician: [facility] Course: This is a pleasant 76-year-old female patient who is known to have CAD and prior revascularization as well as known history of SVT has been experiencing very frequent episodes of heart racing and fluttering. She was seen in the office 2 days ago where she was in SVT with a very fast heart rate. She was admitted to the hospital that day and yesterday she underwent successful SVT ablation by Dr. Tabares. On follow-up with her today, she has been doing very well and she has been asymptomatic. She did not have any cardiac arrhythmia overnight. From a perivascular standpoint of view, the patient can be discharged home. Plan - Discharge Summary New Discharge Prescriptions: Continue Multivitamins, Thera [Multivitamin (formulary)] 1 tab PO DAILY Cholecalciferol [Vitamin D3] 1,000 unit PO HS Ascorbic Acid [Vitamin C] 500 mg PO HS Ubidecarenone [Co Q-10] 100 mg PO BID Isosorbide Mononitrate ER [Imdur] 30 mg PO BID Clopidogrel [Plavix] 75 mg PO DAILY Citalopram Hydrobromide [CeleXA] 20 mg PO HS Vitamin B Complex 1 cap PO HS Pravastatin Sodium [Pravachol] 20 mg PO DAILY Omeprazole 20 mg PO DAILY Hydrochlorothiazide 12.5 mg PO DAILY Budesonide-Formot 160-4.5 Mcg [Symbicort 160-4.5 Mcg Inhaler] 2 puff INHALATION RT-BID Albuterol Inhaler [Ventolin Hfa Inhaler] 2 puff INHALATION RT-Q6H PRN PRN Reason: Shortness Of Breath ALPRAZolam [Xanax] 0.5 mg PO TID PRN PRN Reason: Anxiety Discharge Medication List Ascorbic Acid [Vitamin C] 500 mg PO HS 04/09/17 [History] Cholecalciferol [Vitamin D3] 1,000 unit PO HS 04/09/17 [History] Citalopram Hydrobromide [CeleXA] 20 mg PO HS 04/09/17 [History] Clopidogrel [Plavix] 75 mg PO DAILY 04/09/17 [History] Isosorbide Mononitrate ER [Imdur] 30 mg PO BID 04/09/17 [History] Multivitamins, Thera [Multivitamin (formulary)] 1 tab PO DAILY 04/09/17 [History ] Ubidecarenone [Co Q-10] 100 mg PO BID 04/09/17 [History] ALPRAZolam [Xanax] 0.5 mg PO TID PRN 04/22/17 [History] Albuterol Inhaler [Ventolin Hfa Inhaler] 2 puff INHALATION RT-Q6H PRN 04/22/17 [ History] Budesonide-Formot 160-4.5 Mcg [Symbicort 160-4.5 Mcg Inhaler] 2 puff INHALATION RT-BID 04/22/17 [History] Hydrochlorothiazide 12.5 mg PO DAILY 04/22/17 [History] Omeprazole 20 mg PO DAILY 04/22/17 [History] Pravastatin Sodium [Pravachol] 20 mg PO DAILY 04/22/17 [History] Vitamin B Complex 1 cap PO HS 04/22/17 [History] Follow up Appointment(s)/Referral(s): Cale Lozano MD [STAFF PHYSICIAN] - 2 Weeks Activity/Diet/Wound Care/Special Instructions: Post EP study - Ablation instructions 1. Keep access sites dry for 2 days. 2. No heavy lifting or straining for 2 days. 3. Avoid bending the hips repeatedly for 2 days. 4. You may go up and down stairs slowly Call if the following is noted 1. Bleeding, increasing swelling or pain at the access sites. 2. Increasing chest discomfort, especially upon taking a deep breath. 3. Increasing shortness of breath, at rest or with exertion. 4. Undue cough / phlegm 5. Difficulty or pain while swallowing. 6. Pain or change in color in the extremities. 7. Fever, chills, rigors. 8. Increasing headache or neurologic symptoms. 9. Dizziness, fainting, palpitations Medication changes No digoxin No verapamil No Cardizem No beta blockers Discharge Disposition: HOME SELF-CARE
[2017-04-24 10:01] VITALS: BP 140/85; RESP 16
== END 2017-04-24 11:27 | disposition home or self-care (01) | DRG 274 ==
LOC: 6SEL 16:22
PROVIDERS: ADMIT Internal Medicine Interventional Cardiology; ATTEND Internal Medicine Interventional Cardiology
PROC: 4A023FZ Measurement of Cardiac Rhythm, Percutaneous Approach (ICD-10-PCS; 2017-04-23)
PROC: 02583ZZ Destruction of Conduction Mechanism, Percutaneous Approach (ICD-10-PCS; principal; 2017-04-23 10:16)
PROC: 4A0234Z Measurement of Cardiac Electrical Activity, Percutaneous Approach (ICD-10-PCS; 2017-04-23 10:16)
PROC: 02K83ZZ Map Conduction Mechanism, Percutaneous Approach (ICD-10-PCS; 2017-04-23 10:16)
DX: I47.1 Supraventricular tachycardia (principal); I27.2 Other secondary pulmonary hypertension; I11.9 Hypertensive heart disease without heart failure; I44.1 Atrioventricular block, second degree; I25.10 Atherosclerotic heart disease of native coronary artery without angina pectoris; T82.855D Stenosis of coronary artery stent, subsequent encounter; I36.1 Nonrheumatic tricuspid (valve) insufficiency; T50.995D Adverse effect of other drugs, medicaments and biological substances, subsequent encounter; T44.7X5D Adverse effect of beta-adrenoreceptor antagonists, subsequent encounter; R00.1 Bradycardia, unspecified; I45.19 Other right bundle-branch block; K21.9 Gastro-esophageal reflux disease without esophagitis; I25.2 Old myocardial infarction; E78.5 Hyperlipidemia, unspecified; F32.9 Major depressive disorder, single episode, unspecified; Z82.49 Family history of ischemic heart disease and other diseases of the circulatory system; Z86.79 Personal history of other diseases of the circulatory system; Z87.891 Personal history of nicotine dependence; Z90.49 Acquired absence of other specified parts of digestive tract; Z79.02 Long term (current) use of antithrombotics/antiplatelets; Z79.899 Other long term (current) drug therapy
CPT/HCPCS: 80048; 84443; 85025; 94640; 94760

== ENCOUNTER → 2018-02-15 | Outpatient (CLI) | payer MEDICARE, BC ==
--- NOTE | 2018-02-15 14:32 | CT ---
EXAMINATION TYPE: CT chest wo con DATE OF EXAM: 02/15/2018 COMPARISON: Chest x-rays April 09, 2017 and January 14, 2018 HISTORY: Shortness of breath CT DLP: 683.4 mGycm. Automated Exposure Control for Dose Reduction was Utilized. TECHNIQUE: CT scan of the thorax is performed without IV contrast. High resolution protocol with 1 m m sequences obtained at 10 mm intervals in supine and prone technique are acquired. FINDINGS: LUNGS: There is moderate underlying emphysematous change most prominent in the upper lobes. There is mild to moderate linear scarring in both lower lungs near diaphragm there is some additional linear s carring in the lingula along the left heart border. There is additional linear scarring anteriorly ri ght upper lobe near brachiocephalic confluence axial image 10 series 8. No suspicious peripheral reti culation or focal groundglass opacity is seen. No significant bronchiectasis is present. No pleural e ffusion or pneumothorax is noted. MEDIASTINUM: Lack of IV contrast is noted to limit evaluation for mediastinal and especially hilar ad enopathy. There are no definitive greater than 1 cm hilar or mediastinal lymph nodes. There is cardio megaly. There is small to tiny pericardial effusion. There is moderate to severe 3 vessel coronary ar azael calcification. OTHER: There is moderate to large size hiatal hernia likely fixed. Cholecystectomy clips are seen. Th ere is S-shaped scoliosis in the spine with multilevel spurring. IMPRESSION: Chronic emphysematous change with scattered linear scarring and/or fibrosis. No suspiciou s acute pulmonary process.
== END | disposition home or self-care (01) ==
LOC: RADCTMAIN 13:36
PROVIDERS: ATTEND Internal Medicine
DX: J43.9 Emphysema, unspecified (principal)
CPT/HCPCS: 71250

== ENCOUNTER 2020-01-29 02:19 | Inpatient (IN) | payer MEDICARE, BC ==
[2020-01-29] MEDS ORDERED: MORPHINE SULFATE 4 MG/ML SYRINGE IV STA (02:26)
[2020-01-29] MEDS ORDERED: SODIUM CHLORIDE 0.9% 1,000 ML IV STA (02:26)
--- NOTE | 2020-01-29 02:26 | ED ---
Abdominal Pain HPI - General Stated Complaint: Abdominal Pain Time Seen by Provider: 01/29/20 02:25 Source: RN notes reviewed, old records reviewed Limitations: altered mental status, physical limitation (nonrebreather) - History of Present Illness -: hour(s) Location: diffuse Migration to: no migration Severity: moderate Severity scale (1-10): 4 Quality: cramping, aching Consistency: constant Improves With: nothing Worsens With: nothing Associated Symptoms: nausea - Related Data Home Medications Medication Instructions Recorded Confirmed Isosorbide Mononitrate ER [Imdur] 30 mg PO BID 04/09/17 01/29/20 Budesonide-Formot 160-4.5 Mcg 2 puff INHALATION RT-BID 04/22/17 01/29/20 [Symbicort 160-4.5 Mcg Inhaler] Pravastatin Sodium [Pravachol] 20 mg PO DAILY 04/22/17 01/29/20 Albuterol Sulfate [Ventolin HFA] 2 puff INHALATION RT-QID PRN 01/29/20 01/29/20 Aspirin EC [Ecotrin Low Dose] 81 mg PO DAILY 01/29/20 01/29/20 Budesonide [Budesonide EC] 3 mg PO AC-TID 01/29/20 01/29/20 Co Q-10(Unknown Dose) 1 tab PO BID 01/29/20 01/29/20 Donepezil [Aricept] 10 mg PO HS 01/29/20 01/29/20 Esomeprazole Magnesium [NexIUM 20 mg PO DAILY 01/29/20 01/29/20 24Hr] Furosemide [Lasix] 40 mg PO BID 01/29/20 01/29/20 Losartan Potassium [Cozaar] 50 mg PO DAILY 01/29/20 01/29/20 Metoprolol Tartrate [Lopressor] 25 mg PO DAILY 01/29/20 01/29/20 Potassium Citrate [Potassium 10 meq PO DAILY 01/29/20 01/29/20 Citrate ER] Vitamin B-12(Unknown Dose) 1 tab PO DAILY 01/29/20 01/29/20 Allergies Allergy/AdvReac Type Severity Reaction Status Date / Time No Known Allergies Allergy Verified 01/29/20 10:38 Review of Systems ROS Statement: Those systems with pertinent positive or pertinent negative responses have been documented in the HPI. ROS Other: All systems not noted in ROS Statement are negative. Past Medical History Past Medical History: COPD, Hypertension, Myocardial Infarction ([place]), Supraventricular Tachycardia (SVT) Additional Past Medical History / Comment(s): Ulcerative Colitis Last Myocardial Infarction Date:: 2006 History of Any Multi-Drug Resistant Organisms: None Reported Past Surgical History: Heart Catheterization, Heart Catheterization With Stent Additional Past Surgical History / Comment(s): Eyebrow and lid lift, cataract removal. RCA Stent placed "10 years ago in [place].". Recent heart cath 04/11/2017 Additional Past Anesthesia/Blood Transfusion Reaction / Comment(s): Patient stated that she was shaky, had a bad headache after anesthetic Date of Last Stent Placement:: 2006 Smoking Status: Former smoker - Past Family History Father Family Medical History: Myocardial Infarction ([place]) Daughter(s) Family Medical History: Cancer General Exam General appearance: alert, anxious, in distress Head exam: Present: atraumatic, normocephalic, normal inspection Eye exam: Present: normal appearance, PERRL, EOMI. Absent: scleral icterus, conjunctival injection, periorbital swelling ENT exam: Present: normal exam, mucous membranes dry Neck exam: Present: normal inspection. Absent: tenderness, meningismus, lymphadenopathy Respiratory exam: Present: respiratory distress, rales, accessory muscle use, decreased breath sounds, prolonged expiratory. Absent: wheezes, rhonchi, stridor Cardiovascular Exam: Present: regular rate, normal rhythm, normal heart sounds. Absent: systolic murmur, diastolic murmur, rubs, gallop, clicks GI/Abdominal exam: Present: soft, normal bowel sounds. Absent: distended, tenderness, guarding, rebound, rigid Extremities exam: Present: normal inspection, full ROM, normal capillary refill. Absent: tenderness, pedal edema, joint swelling, calf tenderness Back exam: Present: normal inspection Neurological exam: Present: alert, oriented X3, CN II-XII intact Psychiatric exam: Present: normal affect, normal mood Skin exam: Present: warm, dry, intact, normal color. Absent: rash Course Vital Signs 01/29/20 01/29/20 01/29/20 02:26 02:28 02:37 Temperature 98.7 F 100.7 F H Pulse Rate 82 75 Pulse Rate [ 77 Pulse Oximetery ] Respiratory 20 18 22 Rate Blood Pressure 178/89 176/87 Blood Pressure 114/71 [Left Arm] O2 Sat by Pulse 93 L 94 L 97 Oximetry 01/29/20 01/29/20 01/29/20 03:00 03:30 04:00 Temperature Pulse Rate 78 77 73 Pulse Rate [ Pulse Oximetery ] Respiratory 22 22 22 Rate Blood Pressure 172/88 119/65 122/63 Blood Pressure [Left Arm] O2 Sat by Pulse 97 96 96 Oximetry 01/29/20 01/29/20 01/29/20 04:30 05:00 05:32 Temperature 98.5 F 98.1 F Pulse Rate 76 72 Pulse Rate [ Pulse Oximetery ] Respiratory 22 22 Rate Blood Pressure 116/68 117/68 Blood Pressure [Left Arm] O2 Sat by Pulse 95 95 Oximetry Medical Decision Making - Lab Data Result diagrams: 01/29/20 02:41 01/29/20 02:41 Lab Results 01/29/20 01/29/20 01/29/20 Range/Units 02:41 02:41 02:41 WBC 20.7 H (3.8-10.6) k/uL RBC 4.35 (3.80-5.40) m/uL Hgb 13.6 (11.4-16.0) gm/dL Hct 43.0 (34.0-46.0) % MCV 98.8 (80.0-100.0) fL MCH 31.3 (25.0-35.0) pg MCHC 31.7 (31.0-37.0) g/dL RDW 15.4 (11.5-15.5) % Plt Count 151 (150-450) k/uL Neutrophils % 90 % Lymphocytes % 5 % Monocytes % 3 % Eosinophils % 2 % Basophils % 0 % Neutrophils # 18.6 H (1.3-7.7) k/uL Lymphocytes # 0.9 L (1.0-4.8) k/uL Monocytes # 0.6 (0-1.0) k/uL Eosinophils # 0.3 (0-0.7) k/uL Basophils # 0.1 (0-0.2) k/uL Hypochromasia Slight Macrocytosis Slight PT (9.0-12.0) sec INR (<1.2) APTT (22.0-30.0) sec Sodium 138 (137-145) mmol/L Potassium 4.1 (3.5-5.1) mmol/L Chloride 106 (98-107) mmol/L Carbon Dioxide 26 (22-30) mmol/L Anion Gap 6 mmol/L BUN 25 H (7-17) mg/dL Creatinine 0.79 (0.52-1.04) mg/dL Est GFR (CKD-EPI)AfAm 82 (>60 ml/min/1.73 sqM) Est GFR (CKD-EPI)NonAf 71 (>60 ml/min/1.73 sqM) Glucose 107 H (74-99) mg/dL Plasma Lactic Acid Moe 1.5 (0.7-2.0) mmol/L Calcium 8.9 (8.4-10.2) mg/dL Magnesium 1.8 (1.6-2.3) mg/dL Total Bilirubin 1.0 (0.2-1.3) mg/dL AST 39 H (14-36) U/L ALT 23 (4-34) U/L Alkaline Phosphatase 90 (38-126) U/L Lactate Dehydrogenase 725 H (313-618) U/L Troponin I (0.000-0.034) ng/mL C-Reactive Protein 48.8 H (<10.0) mg/L Total Protein 6.8 (6.3-8.2) g/dL Albumin 3.5 (3.5-5.0) g/dL Amylase 51 (30-110) U/L Lipase 75 (23-300) U/L 01/29/20 01/29/20 Range/Units 02:41 02:41 WBC (3.8-10.6) k/uL RBC (3.80-5.40) m/uL Hgb (11.4-16.0) gm/dL Hct (34.0-46.0) % MCV (80.0-100.0) fL MCH (25.0-35.0) pg MCHC (31.0-37.0) g/dL RDW (11.5-15.5) % Plt Count (150-450) k/uL Neutrophils % % Lymphocytes % % Monocytes % % Eosinophils % % Basophils % % Neutrophils # (1.3-7.7) k/uL Lymphocytes # (1.0-4.8) k/uL Monocytes # (0-1.0) k/uL Eosinophils # (0-0.7) k/uL Basophils # (0-0.2) k/uL Hypochromasia Macrocytosis PT 11.2 (9.0-12.0) sec INR 1.1 (<1.2) APTT 22.9 (22.0-30.0) sec Sodium (137-145) mmol/L Potassium (3.5-5.1) mmol/L Chloride (98-107) mmol/L Carbon Dioxide (22-30) mmol/L Anion Gap mmol/L BUN (7-17) mg/dL Creatinine (0.52-1.04) mg/dL Est GFR (CKD-EPI)AfAm (>60 ml/min/1.73 sqM) Est GFR (CKD-EPI)NonAf (>60 ml/min/1.73 sqM) Glucose (74-99) mg/dL Plasma Lactic Acid Moe (0.7-2.0) mmol/L Calcium (8.4-10.2) mg/dL Magnesium (1.6-2.3) mg/dL Total Bilirubin (0.2-1.3) mg/dL AST (14-36) U/L ALT (4-34) U/L Alkaline Phosphatase (38-126) U/L Lactate Dehydrogenase (313-618) U/L Troponin I 0.014 (0.000-0.034) ng/mL C-Reactive Protein (<10.0) mg/L Total Protein (6.3-8.2) g/dL Albumin (3.5-5.0) g/dL Amylase (30-110) U/L Lipase (23-300) U/L - EKG Data -: EKG Interpreted by Me (EKG shows sinus rhythm of 79, HI 160, QRS 112, QTc 450) Disposition Clinical Impression: Abdominal pain, Acute exacerbation of chronic obstructive pulmonary disease (COPD), Community acquired bacterial pneumonia Narrative: r/o COVID Disposition: ADMITTED IP TO THIS HOSP Condition: Fair Is patient prescribed a controlled substance at d/c from ED?: No
[2020-01-29 02:53] LABS: Basophils # (A) 0.1 k/uL (0-0.2); Basophils % (A) 0 %; Eosinophils # (A) 0.3 k/uL (0-0.7); Eosinophils % (A) 2 %; HGB 13.6 gm/dL (11.4-16.0); Hypochromasia Slight; Lymphocytes # (A) 0.9 k/uL (1.0-4.8); Lymphocytes % (A) 5 %; MCH 31.3 pg (25.0-35.0); MCHC 31.7 g/dL (31.0-37.0); MCV 98.8 fL (80.0-100.0); Macrocytosis Slight; Mean Platelet Volume 9.1; Monocytes # (A) 0.6 k/uL (0-1.0); Monocytes % (A) 3 %; Neutrophils # (A) 18.6 k/uL (1.3-7.7); Neutrophils % (A) 90 %; Platelet Count 151 k/uL (150-450); RBC 4.35 m/uL (3.80-5.40); RDW 15.4 % (11.5-15.5); WBC 20.7 k/uL (3.8-10.6)
[2020-01-29 03:11] LABS: Albumin 3.5 g/dL (3.5-5.0); C Reactive Protein 48.8 mg/L (<10.0); Calcium 8.9 mg/dL (8.4-10.2); Magnesium 1.8 mg/dL (1.6-2.3); Potassium 4.1 mmol/L (3.5-5.1); Total Protein 6.8 g/dL (6.3-8.2)
[2020-01-29 03:15] LABS: INR 1.1 (<1.2); Partial Thromboplastin Time 22.9 sec (22.0-30.0); Prothrombin Time 11.2 sec (9.0-12.0)
--- NOTE | 2020-01-29 03:47 | CT ---
EXAMINATION TYPE: CT abdomen pelvis w con DATE OF EXAM: 01/29/2020 COMPARISON: None HISTORY: Abd Pain CT DLP: 935.10 mGycm Automated exposure control for dose reduction was used. CONTRAST: Performed with IV Contrast, patient injected with 100 mL of Isovue 300. There is patchy infiltrate and atelectasis at both lung bases and more on the left side. There is lar ge hiatal hernia. Heart is enlarged. There is no pericardial effusion. There is no pleural effusion. There are clips from cholecystectomy. Liver shows no focal defect. Spleen is intact. There is no evid ence of pancreatic mass. There is no adrenal mass. Kidneys show satisfactory contrast opacification. There is no hydronephrosi s. Ureters are not dilated. There is no retroperitoneal adenopathy. Bladder distends smoothly. Uterus is anteverted. There is no free fluid in the pelvis. There are multiple sigmoid diverticula. I see n o sign of diverticulitis. There is no mesenteric edema. There is no evidence of free air. There are m ultiple surgical clips at the transverse colon. There is apparent right hemicolectomy. There is thoracolumbar levorotoscoliosis. The bony pelvis is intact. There is old left pubic rami hea led fractures. The proximal femurs are intact. I see no lumbar compression fracture. IMPRESSION: Infiltrates and atelectasis at the lung bases. Large hiatal hernia. Moderate cardiomegaly. Colonic diverticulosis without diverticulitis. Previous colon surgery.
[2020-01-29] MEDS ORDERED: PNEUMONIA PROTOCOL UTILIZED 1 EACH MISC PO PRN (04:23)
[2020-01-29] MEDS ORDERED: AZITHROMYCIN 500 MG in SODIUM CHLORIDE 0.9% 250 ML IVPB STA (04:23)
--- NOTE | 2020-01-29 05:01 | XR ---
EXAMINATION TYPE: XR chest 1V DATE OF EXAM: 01/29/2020 COMPARISON: 01/14/2018 HISTORY: Chest pain TECHNIQUE: FINDINGS: Heart is moderately enlarged. There is some increased density behind the heart consistent w ith large hiatal hernia. There is no gross heart failure. There is some linear density in both lower lobes. There are no hilar masses. Thoracic aorta is atheromatous. IMPRESSION: Moderate cardiomegaly. Hiatal hernia. Fibrotic changes and mild atelectasis at the lung b ases. No heart failure seen. Heart appears increased compared to old exam.
[2020-01-29] MEDS: IPRATROPIUM-ALBUTEROL 3 ML NEB INHALATION PRN ×4 (08:51→20:57)
--- NOTE | 2020-01-29 11:15 | US ---
EXAMINATION TYPE: US venous doppler duplex LE DATE OF EXAM: 01/29/2020 11:10 AM COMPARISON: NONE CLINICAL HISTORY: edema hypoxemia. SIDE PERFORMED: Bilateral TECHNIQUE: The lower extremity deep venous system is examined utilizing real time linear array sonog lee with graded compression, doppler sonography and color-flow sonography. VESSELS IMAGED: External Iliac Vein (EIV) Common Femoral Vein Deep Femoral Vein Greater Saphenous Vein * Femoral Vein Popliteal Vein Small Saphenous Vein * Proximal Calf Veins (* superficial vessels) Grayscale, color doppler, spectral doppler imaging performed of the deep veins of the lower extremiti es. There is normal flow, compressibility, vascular waveforms. Right Leg: Negative for DVT Left Leg: Negative for DVT Subcutaneous edema noted. IMPRESSION: Subcutaneous edema of the lower extremities with no sonographic evidence of deep venous thrombosis in the bilateral lower extremities.
--- NOTE | 2020-01-29 11:52 | P.HPIM ---
History of Present Illness 79-year-old female came in with complaints of shortness of breath has been going on for last few days progressively worse was complaining of abdominal pain and diarrhea patient has hearing problem because of which she is a poor historian when asked about fever patient said she had fever, patient had fever of 100.7 in ER.patient is presently requiring 15 L of oxygen. COVID 19 testing was ordered ,she is a former smoker does have history of COPD with nausea did not wheezing on exam.patient does have increased LDH increase her d-dimer CT for pulmonary embolism is being obtained patient has lymphopenia all consistent and highly s uspicious for Covid 19. Review of Systems REVIEW OF SYSTEMS: CONSTITUTIONAL: as mentioned in HPI HEENT: No recent visual problems or hearing problems. Denied any sore throat. CARDIOVASCULAR: No chest pain, orthopnea, PND, no palpitations, no syncope. PULMONARY: no hemoptysis. GASTROINTESTINAL:as mentioned in HPI NEUROLOGICAL: No headaches, no weakness, no numbness. HEMATOLOGICAL: Denies any bleeding or petechiae. GENITOURINARY: Denies any burning micturition, frequency, or urgency. MUSCULOSKELETAL/RHEUMATOLOGICAL: Denies any joint pain, swelling, or any muscle pain. ENDOCRINE: Denies any polyuria or polydipsia. The rest of the 14-point review of systems is negative. Past Medical History Past Medical History: Heart Failure, COPD, Hypertension, Myocardial Infarction ([place]), Supraventricular Tachycardia (SVT) Additional Past Medical History / Comment(s): Ulcerative Colitis Last Myocardial Infarction Date:: 2006 History of Any Multi-Drug Resistant Organisms: None Reported Past Surgical History: Heart Catheterization, Heart Catheterization With Stent Additional Past Surgical History / Comment(s): Eyebrow and lid lift, cataract removal. RCA Stent placed "10 years ago in [place].". Recent heart cath 04/11/2017 Additional Past Anesthesia/Blood Transfusion Reaction / Comment(s): Patient stated that she was shaky, had a bad headache after anesthetic Date of Last Stent Placement:: 2006 Past Psychological History: Anxiety Smoking Status: Former smoker Past Alcohol Use History: None Reported Past Drug Use History: None Reported - Past Family History Father Family Medical History: Myocardial Infarction ([place]) Daughter(s) Family Medical History: Cancer Medications and Allergies Home Medications Medication Instructions Recorded Confirmed Type Isosorbide Mononitrate ER [Imdur] 30 mg PO BID 04/09/17 01/29/20 History Budesonide-Formot 160-4.5 Mcg 2 puff INHALATION RT-BID 04/22/17 01/29/20 History [Symbicort 160-4.5 Mcg Inhaler] Pravastatin Sodium [Pravachol] 20 mg PO DAILY 04/22/17 01/29/20 History Albuterol Sulfate [Ventolin HFA] 2 puff INHALATION RT-QID PRN 01/29/20 01/29/20 History Aspirin EC [Ecotrin Low Dose] 81 mg PO DAILY 01/29/20 01/29/20 History Budesonide [Budesonide EC] 3 mg PO AC-TID 01/29/20 01/29/20 History Co Q-10(Unknown Dose) 1 tab PO BID 01/29/20 01/29/20 History Donepezil [Aricept] 10 mg PO HS 01/29/20 01/29/20 History Esomeprazole Magnesium [NexIUM 20 mg PO DAILY 01/29/20 01/29/20 History 24Hr] Furosemide [Lasix] 40 mg PO BID 01/29/20 01/29/20 History Losartan Potassium [Cozaar] 50 mg PO DAILY 01/29/20 01/29/20 History Metoprolol Tartrate [Lopressor] 25 mg PO DAILY 01/29/20 01/29/20 History Potassium Citrate [Potassium 10 meq PO DAILY 01/29/20 01/29/20 History Citrate ER] Vitamin B-12(Unknown Dose) 1 tab PO DAILY 01/29/20 01/29/20 History Allergies Allergy/AdvReac Type Severity Reaction Status Date / Time No Known Allergies Allergy Verified 01/29/20 10:38 Physical Exam Vitals: Vital Signs Temp Pulse Pulse Resp BP BP Pulse Ox 01/29/20 09:02 76 01/29/20 08:53 72 01/29/20 08:00 69 20 01/29/20 07:00 97.8 F 69 20 123/64 93 L 01/29/20 06:15 20 01/29/20 05:32 98.1 F 01/29/20 05:00 98.5 F 72 22 117/68 95 01/29/20 04:30 76 22 116/68 95 01/29/20 04:00 73 22 122/63 96 01/29/20 03:30 77 22 119/65 96 01/29/20 03:00 78 22 172/88 97 01/29/20 02:37 75 22 176/87 97 01/29/20 02:28 100.7 F H 82 18 178/89 94 L Intake and Output 01/28/20 01/29/20 01/29/20 22:59 06:59 14:59 Other: Weight 79 kg PHYSICAL EXAMINATION: GENERAL: The patient is alert and oriented x3, not in any acute distress. Well developed, well nourished. HEENT: Pupils are round and equally reacting to light. EOMI. No scleral icterus. No conjunctival pallor. Normocephalic, atraumatic. No pharyngeal erythema. No thyromegaly. CARDIOVASCULAR: S1 and S2 present. No murmurs, rubs, or gallops. PULMONARY: Chest is clear to auscultation, no wheezing or crackles. ABDOMEN: Soft, nontender, nondistended, normoactive bowel sounds. No palpable organomegaly. MUSCULOSKELETAL: No joint swelling or deformity. EXTREMITIES: No cyanosis, clubbing, or pedal edema. NEUROLOGICAL: Gross neurological examination did not reveal any focal deficits. SKIN: No rashes. Note: Because of COVID 19 isolation, some of the history and physical exam findings or indirect and obtained from nursing staff, and other physician examinations to avoid unnecessary contact with the patient. Results CBC & Chem 7: 01/29/20 02:41 01/29/20 02:41 Labs: Abnormal Lab Results - Last 24 Hours (Table) 01/29/20 01/29/20 01/29/20 Range/Units 02:41 02:41 10:24 WBC 20.7 H (3.8-10.6) k/uL Neutrophils # 18.6 H (1.3-7.7) k/uL Lymphocytes # 0.9 L (1.0-4.8) k/uL D-Dimer 1.25 H (<0.60) mg/L FEU BUN 25 H (7-17) mg/dL Glucose 107 H (74-99) mg/dL AST 39 H (14-36) U/L Lactate Dehydrogenase 725 H (313-618) U/L C-Reactive Protein 48.8 H (<10.0) mg/L Thrombosis Risk Factor Assmnt - Choose All That Apply Each Factor Represents 1 point: Abnormal pulmonary function (COPD) Other Risk Factors: No Other congenital or acquired thrombophilia - If yes, enter type in comment: No Thrombosis Risk Factor Assessment Total Risk Factor Score: 1 Thrombosis Risk Factor Assessment Level: Low Risk Assessment and Plan Plan: -acute hypoxic respiratory failure: Most probably secondary to COVID 19pneumonitis. Supportive care patient may need steroids, PCR is pending -elevated d-dimer most probably secondary to COVI 19, we'll rule out pulmonary embolism the CAT scan of the chest tomorrow Doppler bilateral lower extremity is negative for any DVT -COPD without any significant exacerbation -hypertension:hold off losartan because of sepsis -History of ulcerative colitis -sepsis secondary to assessment #1: Continue with IV fluids hold of Lasix -moderate to severe pulmonary hypertension -DVT prophylaxis with Lovenox
--- NOTE | 2020-01-29 12:08 | P.CNPUL ---
History of Present Illness Consult date: 01/29/20 Requesting physician: Radha Weinberg Reason for consult: dyspnea, COPD Chief complaint: Abdominal pain, shortness of breath History of present illness: This is a very pleasant 79-year-old female patient who follows with Dr. Gómez as her primary care provider. She has a history of SVT, coronary artery disease with previous stent placement, alterative colitis, hypertension. She also has a history of chronic tobacco dependence and chronic obstructive pulmonary disease and follows in our office for the same. She is oxygen dependent. She is maintained on Symbicort and Ventolin. FEV1 value 74% of predicted. She was last seen in June 2019. She presented here to the emergency room earlier this morning with complaints of abdominal pain. Computed tomography scan of the abdomen revealed colonic diverticulosis without diverticulitis. Previous colon surgery. Large hiatal hernia. Cardiomegaly. There is also infiltrates and atelectasis of the lung bases. We're consulted for the same. White count 20.7. Hemoglobin 13.6. Lymphocytes 0.9. D-dimer 1.25. Sodium 130. Potassium 4.1. Creatinine 0.79. LDH 725. Troponin 0.014. C-reactive protein 48.8. Currently 19 screen pending. Pro-calcitonin pending. Chest x-ray revealed moderate cardiomegaly. Hiatal hernia. Fibrotic changes and mild atelectasis at lung bases. No heart failure. She is seen today on the regular medical floor. She is awake and alert in no acute distress. She has minimal shortness of breath with exertion. She is on a nonrebreather mask at 15 L to maintain O2 saturations in the 90s. She's currently afebrile. She presented with a T-max of 100.7. She's had a dry nonproductive cough. She's been initiated on Symbicort, DuoNeb inhalations. Antibiotics in the form of azithromycin. She did receive ceftriaxone 1. There is some edema of the lower extremities. Venous Doppler negative for DVTs bilaterally. Review of Systems REVIEW OF SYSTEMS: CONSTITUTIONAL: Denies any recent significant weight loss or weight gain. EYES: Denies change in vision. EARS, NOSE, MOUTH, THROAT: Denies headaches, denies sore throat. CARDIOVASCULAR: Denies chest pain, palpitations or syncopal episodes. RESPIRATORY: Positive for shortness of breath, cough, congestion no hemoptysis. GASTROINTESTINAL: Positive for abdominal pain GENITOURINARY: Denies hematuria, denies infections. MUSKULOSKELETAL: Denies pain, denies swelling. INTEGUMENTARY: Denies rash, denies eczema. NEUROLOGICAL: Denies recent memory loss, no recent seizure activity. PSYCHIATRIC: Denies anxiety, denies depression. HEMATOLOGIC/LYMPHATIC: Denies anemia, denies enlarged lymph nodes. Past Medical History Past Medical History: Heart Failure, COPD, Hypertension, Myocardial Infarction (VT), Supraventricular Tachycardia (SVT) Additional Past Medical History / Comment(s): Ulcerative Colitis Last Myocardial Infarction Date:: 2006 History of Any Multi-Drug Resistant Organisms: None Reported Past Surgical History: Heart Catheterization, Heart Catheterization With Stent Additional Past Surgical History / Comment(s): Eyebrow and lid lift, cataract removal. RCA Stent placed "10 years ago in [place].". Recent heart cath 04/11/2017 Additional Past Anesthesia/Blood Transfusion Reaction / Comment(s): Patient stated that she was shaky, had a bad headache after anesthetic Date of Last Stent Placement:: 2006 Past Psychological History: Anxiety Smoking Status: Former smoker Past Alcohol Use History: None Reported Past Drug Use History: None Reported - Past Family History Father Family Medical History: Myocardial Infarction (VT) Daughter(s) Family Medical History: Cancer Medications and Allergies Home Medications Medication Instructions Recorded Confirmed Type Isosorbide Mononitrate ER [Imdur] 30 mg PO BID 04/09/17 01/29/20 History Budesonide-Formot 160-4.5 Mcg 2 puff INHALATION RT-BID 04/22/17 01/29/20 History [Symbicort 160-4.5 Mcg Inhaler] Pravastatin Sodium [Pravachol] 20 mg PO DAILY 04/22/17 01/29/20 History Albuterol Sulfate [Ventolin HFA] 2 puff INHALATION RT-QID PRN 01/29/20 01/29/20 History Aspirin EC [Ecotrin Low Dose] 81 mg PO DAILY 01/29/20 01/29/20 History Budesonide [Budesonide EC] 3 mg PO AC-TID 01/29/20 01/29/20 History Co Q-10(Unknown Dose) 1 tab PO BID 01/29/20 01/29/20 History Donepezil [Aricept] 10 mg PO HS 01/29/20 01/29/20 History Esomeprazole Magnesium [NexIUM 20 mg PO DAILY 01/29/20 01/29/20 History 24Hr] Furosemide [Lasix] 40 mg PO BID 01/29/20 01/29/20 History Losartan Potassium [Cozaar] 50 mg PO DAILY 01/29/20 01/29/20 History Metoprolol Tartrate [Lopressor] 25 mg PO DAILY 01/29/20 01/29/20 History Potassium Citrate [Potassium 10 meq PO DAILY 01/29/20 01/29/20 History Citrate ER] Vitamin B-12(Unknown Dose) 1 tab PO DAILY 01/29/20 01/29/20 History Allergies Allergy/AdvReac Type Severity Reaction Status Date / Time No Known Allergies Allergy Verified 01/29/20 10:38 Physical Exam Vitals: Vital Signs Temp Pulse Pulse Resp BP BP Pulse Ox 01/29/20 09:02 76 01/29/20 08:53 72 01/29/20 08:00 69 20 01/29/20 07:00 97.8 F 69 20 123/64 93 L 01/29/20 06:15 20 01/29/20 05:32 98.1 F 01/29/20 05:00 98.5 F 72 22 117/68 95 01/29/20 04:30 76 22 116/68 95 01/29/20 04:00 73 22 122/63 96 01/29/20 03:30 77 22 119/65 96 01/29/20 03:00 78 22 172/88 97 01/29/20 02:37 75 22 176/87 97 01/29/20 02:28 100.7 F H 82 18 178/89 94 L Intake and Output 01/28/20 01/29/20 01/29/20 22:59 06:59 14:59 Other: Weight 79 kg GENERAL EXAM: Alert, active, pleasant 79-year-old, on 15 L nonrebreather mask currently, comfortable in no apparent distress. HEAD: Normocephalic. EYES: Normal reaction of pupils, equal size. NOSE: Clear with pink turbinates. THROAT: No erythema or exudates. NECK: No masses, no JVD. CHEST: No chest wall deformity. LUNGS: Equal air entry with crackles in the bilateral posterior bases, diminished. CVS: S1 and S2 normal with no audible murmur, regular rhythm. ABDOMEN: No hepatosplenomegaly, normal bowel sounds, no guarding or rigidity. SPINE: No scoliosis or deformity SKIN: No rashes CENTRAL NERVOUS SYSTEM: No focal deficits, tone is normal in all 4 extremities. EXTREMITIES: There is 1-2+ peripheral edema. No clubbing, no cyanosis. Peripheral pulses are intact. Results - Laboratory Findings CBC and BMP: 01/29/20 02:41 01/29/20 02:41 PT/INR, D-dimer PT 11.2 sec (9.0-12.0) 01/29/20 02:41 INR 1.1 (<1.2) 01/29/20 02:41 D-Dimer 1.25 mg/L FEU (<0.60) H 01/29/20 10:24 Abnormal lab findings: Abnormal Labs 01/29/20 01/29/20 01/29/20 02:41 02:41 10:24 WBC 20.7 H Neutrophils # 18.6 H Lymphocytes # 0.9 L D-Dimer 1.25 H BUN 25 H Glucose 107 H AST 39 H Lactate Dehydrogenase 725 H C-Reactive Protein 48.8 H - Diagnostic Findings Chest x-ray: image reviewed Assessment and Plan Assessment: 1 Abdominal discomfort of unclear etiology, computed tomography scan of the abdomen revealed evidence of diverticulosis but no diverticulitis, previous colon surgery, large hiatal hernia 2 Acute exacerbation of chronic obstructive pulmonary disease 3 Acute on chronic hypoxic respiratory failure secondary to above, CoVID 19 screen pending, computed tomography scan of the chest pending 4 Lower extremity edema, Dopplers negative for DVT 5 Coronary artery disease with previous stent placement 6 Hyperlipidemia 7 Hypertension 8 History of ulcerative colitis 9 History of chronic tobacco dependence Plan: The patient was seen and evaluated by Dr. Hanson Chest x-ray and labs reviewed Plan for computed tomography scan of the chest tomorrow as she had a abdominal CAT scan today CoVID 19 screen pending Continue Symbicort and DuoNeb's Continue azithromycin Titrate down the FiO2 as tolerated We will continue to follow and make further recommendations based on her clinical status I, the cosigning physician, performed a history & physical examination of the patient. Lungs sounds with crackles in the bilateral bases. Maintaining good O2 saturations in the 90s on 15 L via nonrebreather mask. I discussed the assessment and plan of care with my nurse practitioner, Milka Kwong. I attest to the above consultation as dictated by her. Time with Patient: Greater than 30
[2020-01-29] MEDS: DONEPEZIL 10 MG TAB PO SCH (20:40)
[2020-01-29] MEDS: ISOSORBIDE MONONITRATE ER 30 MG TAB.ER.24H PO SCH (20:40)
[2020-01-29] MEDS: SYMBICORT 160-4.5 MCG INHALER INHALATION SCH (20:51)
--- NOTE | 2020-01-29 23:31 | P.CONS ---
History of Present Illness - Reason for Consult Consult date: 01/29/20 pneumonia ?COVID Requesting physician: Peter Modi - Chief Complaint right sided chest pain and shortness of breath x 1 day - History of Present Illness Patient is 79-year-old female presenting to the ER at [facility] with chief complaints of right-sided chest pain along with shortness of breath that apparently started last night and woke up the patient from sleep patient stated when she went to sleep she was doing okay patient denies having any URI symptoms denies having any significant cough or sputum production no nausea no vomiting no diarrhea or any constipation with the symptom the patient was presented to hospital on arrival to the ER the patient did have low-grade fever 100.7 Fahrenheit patient noticed to be hypoxic req uiring some supplemental oxygen she did have a white count of 20,000 d-dimer was mildly elevated AST is elevated 39 LDH was elevated as well as CRP patient did have a CT of abdominal pelvis which did show significant atelectasis the lung bases large hiatal hernia moderate cardiomegaly chest x-ray shows moderate cardiomegaly and some atelectasis in the right lung base venous Doppler has been negative for DVT this patient who recently did have a drive back home from [place] about 2 weeks ago in her motor home patient has been started on Zithromax and Rocephin she has been admitted to hospital infectious disease has been consulted with concern for possible COVID-19 infection patient has been ev aluated by pulmonary a CT angiogram has been ordered for tomorrow morning COVID- 19 testing has been done results are currently pending. Review of Systems Positive point has been mentioned in HPI rest of the systems are negative Past Medical History Past Medical History: Heart Failure, COPD, Hypertension, Myocardial Infarction ([place]), Supraventricular Tachycardia (SVT) Additional Past Medical History / Comment(s): Ulcerative Colitis Last Myocardial Infarction Date:: 2006 History of Any Multi-Drug Resistant Organisms: None Reported Past Surgical History: Heart Catheterization, Heart Catheterization With Stent Additional Past Surgical History / Comment(s): Eyebrow and lid lift, cataract removal. RCA Stent placed "10 years ago in [place].". Recent heart cath 04/11/2017 Additional Past Anesthesia/Blood Transfusion Reaction / Comm: Patient stated that she was shaky, had a bad headache after anesthetic Date of Last Stent Placement:: 2006 Past Psychological History: Anxiety Smoking Status: Former smoker Past Alcohol Use History: None Reported Past Drug Use History: None Reported - Past Family History Father Family Medical History: Myocardial Infarction (NM) Daughter(s) Family Medical History: Cancer Medications and Allergies Home Medications Medication Instructions Recorded Confirmed Type Isosorbide Mononitrate ER [Imdur] 30 mg PO BID 04/09/17 01/29/20 History Budesonide-Formot 160-4.5 Mcg 2 puff INHALATION RT-BID 04/22/17 01/29/20 History [Symbicort 160-4.5 Mcg Inhaler] Pravastatin Sodium [Pravachol] 20 mg PO DAILY 04/22/17 01/29/20 History Albuterol Sulfate [Ventolin HFA] 2 puff INHALATION RT-QID PRN 01/29/20 01/29/20 History Aspirin EC [Ecotrin Low Dose] 81 mg PO DAILY 01/29/20 01/29/20 History Budesonide [Budesonide EC] 3 mg PO AC-TID 01/29/20 01/29/20 History Co Q-10(Unknown Dose) 1 tab PO BID 01/29/20 01/29/20 History Donepezil [Aricept] 10 mg PO HS 01/29/20 01/29/20 History Esomeprazole Magnesium [NexIUM 20 mg PO DAILY 01/29/20 01/29/20 History 24Hr] Furosemide [Lasix] 40 mg PO BID 01/29/20 01/29/20 History Losartan Potassium [Cozaar] 50 mg PO DAILY 01/29/20 01/29/20 History Metoprolol Tartrate [Lopressor] 25 mg PO DAILY 01/29/20 01/29/20 History Potassium Citrate [Potassium 10 meq PO DAILY 01/29/20 01/29/20 History Citrate ER] Vitamin B-12(Unknown Dose) 1 tab PO DAILY 01/29/20 01/29/20 History Allergies Allergy/AdvReac Type Severity Reaction Status Date / Time No Known Allergies Allergy Verified 01/29/20 10:38 Physical Exam Vitals: Vital Signs Temp Pulse Pulse Resp BP BP Pulse Ox 01/29/20 21:11 72 01/29/20 20:59 70 01/29/20 16:47 93 L 01/29/20 16:42 66 01/29/20 16:34 63 01/29/20 16:00 73 15 01/29/20 15:00 97.5 F L 73 15 104/58 95 01/29/20 12:15 80 01/29/20 12:05 72 01/29/20 09:02 76 01/29/20 08:53 72 01/29/20 08:00 69 20 01/29/20 07:00 97.8 F 69 20 123/64 93 L 01/29/20 06:15 20 01/29/20 05:32 98.1 F 01/29/20 05:00 98.5 F 72 22 117/68 95 01/29/20 04:30 76 22 116/68 95 01/29/20 04:00 73 22 122/63 96 01/29/20 03:30 77 22 119/65 96 01/29/20 03:00 78 22 172/88 97 01/29/20 02:37 75 22 176/87 97 01/29/20 02:28 100.7 F H 82 18 178/89 94 L 01/29/20 02:26 98.7 F 77 20 114/71 93 L Intake and Output 01/29/20 01/29/20 01/30/20 14:59 22:59 06:59 Other: Voiding Method Toilet # Voids 2 2 GENERAL DESCRIPTION: Elderly female lying in bed, no distress. No tachypnea or a ccessory muscle of respiration use. HEENT: Shows Pallor , no scleral icterus. Oral mucous membrane is dry. NECK: Trachea central, no thyromegaly. LUNGS: Unlabored breathing. Decrease intensity of breath sounds. No wheeze or crackle. HEART: S1, S2, regular rate and rhythm. ABDOMEN: Soft, no tenderness , guarding or rigidity EXTREMITIES: Diffuse swelling of lower extremity bruises sKIN: No rash, no masses palpable. NEUROLOGICAL: The patient is awake, alert, oriented x3, mood and affect normal. Results CBC & Chem 7: 01/29/20 02:41 01/29/20 02:41 Labs: Abnormal Lab Results - Last 24 Hours (Table) 01/29/20 01/29/20 01/29/20 Range/Units 02:41 02:41 10:24 WBC 20.7 H (3.8-10.6) k/uL Neutrophils # 18.6 H (1.3-7.7) k/uL Lymphocytes # 0.9 L (1.0-4.8) k/uL D-Dimer 1.25 H (<0.60) mg/L FEU BUN 25 H (7-17) mg/dL Glucose 107 H (74-99) mg/dL AST 39 H (14-36) U/L Lactate Dehydrogenase 725 H (313-618) U/L C-Reactive Protein 48.8 H (<10.0) mg/L Assessment and Plan Assessment: patient present to the hospital mostly with right-sided chest pain in this patient also having increasing shortness of breath minimal cough did have elevated white count with mild right-sided pulmonary infiltrate high clinical suspicious for pneumonia possible community-acquired underlying COVID-19 100 and excluded in view of some of the blood work especially with elevated LDH AST and lymphopenia. (1) Pneumonia Current Visit: Yes Status: Acute Code(s): J18.9 - PNEUMONIA, UNSPECIFIED ORGANISM SNOMED Code(s): 108775638 (2) Suspected COVID-19 virus infection Current Visit: Yes Status: Acute Code(s): Z20.828 - CONTACT W AND EXPOSURE TO OTH VIRAL COMMUNICABLE DISEASES SNOMED Code(s): 985147446 Plan: 1-await COVID-19 testing the patient in droplet isolation 2-await CT angiogram ordered for tomorrow morning 3-obtain a sputum for Gram stain and culture 4-we will add Rocephin 1 g daily and Zithromax to continue We will follow on clinical condition and cultures to further adjust medication if needed Thank you for this consultation we will follow the patient along with you Time with Patient: Greater than 30
[2020-01-30] MEDS ORDERED: ACETAMINOPHEN TAB 325 MG TAB PO PRN (00:13)
[2020-01-30 00:53] LABS: Appearance,Urine Clear (Clear); Bilirubin,Urine 1+ (Negative); Blood,Urine Negative (Negative); Color,Urine Dark Yellow; Glucose,Urine (UA) Negative (Negative); Ketones,Urine Negative (Negative); Leukocyte Esterase,Urine Negative (Negative); Mucus,Urine Occasional /hpf; Nitrite,Urine Negative (Negative); Protein,Urine 1+ (Negative); RBC,Urine 1 /hpf (0-5); Squamous Epithelial Cell,Urine 4 /hpf (0-4); WBC,Urine 1 /hpf (0-5)
[2020-01-30] MEDS: AZITHROMYCIN 500 MG TAB PO SCH (04:27)
--- NOTE | 2020-01-30 08:01 | XR ---
EXAMINATION TYPE: XR chest 1V portable DATE OF EXAM: 01/30/2020 COMPARISON: Prior chest x-ray and CT 01/29/2020 HISTORY: Pneumonia TECHNIQUE: Single frontal view of the chest is obtained. FINDINGS: The heart is enlarged. No evident pneumothorax. Patchy bibasilar density again seen. Inter stitium is increased. Prominence of the pulmonary artery could be indicative of pulmonary artery hype rtension. The aorta is dense. Patient is rotated. Retrocardiac density consistent with patient's hiat al hernia and partial intrathoracic stomach. IMPRESSION: Cardiomegaly, subsegmental basilar atelectatic changes, correlate for pulmonary artery h ypertension.
[2020-01-30 08:39] LABS: Potassium 3.8 mmol/L (3.5-5.1)
[2020-01-30] MEDS ORDERED: LOSARTAN 50 MG TAB PO SCH (09:00)
[2020-01-30] MEDS: BUDESONIDE 1 MG/2 ML NEBU INHALATION SCH ×2 (09:09→20:18)
[2020-01-30] MEDS: IPRATROPIUM-ALBUTEROL 3 ML NEB INHALATION PRN ×4 (09:09→20:18)
[2020-01-30] MEDS: SYMBICORT 160-4.5 MCG INHALER INHALATION SCH (09:10)
[2020-01-30] MEDS: ASPIRIN 81 MG PO SCH (10:49)
[2020-01-30] MEDS: POTASSIUM CITRATE 10 MEQ TABLET.ER PO SCH (10:49)
[2020-01-30] MEDS: PANTOPRAZOLE 40 MG TABLET PO SCH (10:49)
[2020-01-30] MEDS: ISOSORBIDE MONONITRATE ER 30 MG TAB.ER.24H PO SCH ×2 (10:49→20:35)
[2020-01-30] MEDS: FUROSEMIDE 40 MG TAB PO SCH ×2 (10:49→15:11)
[2020-01-30] MEDS: METOPROLOL TARTRATE 25 MG TAB PO SCH (10:49)
[2020-01-30] MEDS: PRAVASTATIN SODIUM 20 MG TAB PO SCH (10:49)
--- NOTE | 2020-01-30 11:16 | CT ---
EXAMINATION TYPE: CT angio chest DATE OF EXAM: 01/30/2020 COMPARISON: ct chest 02/15/2018 HISTORY: Hypoxemia CT DLP: 354.1 mGycm Automated exposure control for dose reduction was used. CONTRAST: CTA scan of the thorax is performed with IV Contrast, patient injected with 100 mL of Isovue 300, pul monary embolism protocol. MIP images are created and reviewed. 3D reconstructed images are created on an independent workstation and reviewed. FINDINGS: LUNGS: The lungs are grossly clear, there is no concerning parenchymal mass or nodule identified. Th ere is thickening of the interstitial lines. There is minimal pleural fluid seen. The tracheobronchi al tree is patent. AORTA: No additional significant abnormality is seen. MEDIASTINUM: There is satisfactory enhancement of the pulmonary artery and its branches, there is no CT evidence for pulmonary embolism. Prominent pulmonary artery suggestive of pulmonary artery hypert ension. There are no greater than 1 cm hilar or mediastinal lymph nodes. No pericardial effusion is seen. Heart is enlarged. Partial intrathoracic stomach with paraesophageal hernia. Root of the aorta is borderline enlarged at approximately 4 cm. OTHER: There is reflux of the contrast material into the inferior vena cava and hepatic veins. There is a spinal curvature, degenerative disc change. Patient is post cholecystectomy. IMPRESSION: NO EVIDENT PULMONARY EMBOLISM, CORRELATE FOR PULMONARY ARTERY HYPERTENSION. CARDIOMEGALY WITH INCREAS ED INTERSTITIUM AND EVIDENCE OF RIGHT HEART FAILURE, CORRELATE FOR PULMONARY VENOUS HYPERTENSION AND INTERSTITIAL EDEMA. PARAESOPHAGEAL HERNIA WITH PARTIAL INTRATHORACIC STOMACH. AORTIC ANEURYSM.
--- NOTE | 2020-01-30 13:14 | P.PN ---
Subjective Progress Note Date: 01/30/20 Principal diagnosis: Abdominal discomfort of unclear etiology This is a very pleasant 79-year-old female patient who follows with Dr. Gómez as her primary care provider. She has a history of SVT, coronary artery disease with previous stent placement, alterative colitis, hypertension. She also has a history of chronic tobacco dependence and chronic obstructive pulmonary disease and follows in our office for the same. She is oxygen dependent. She is maintained on Symbicort and Ventolin. FEV1 value 74% of predicted. She was last seen in June 2019. She presented here to the emergency room earlier this morning with complaints of abdominal pain. Computed tomography scan of the abdomen revealed colonic diverticulosis without diverticulitis. Previous colon surgery. Large hiatal hernia. Cardiomegaly. There is also infiltrates and atelectasis of the lung bases. We're consulted for the same. White count 20.7. Hemoglobin 13.6. Lymphocytes 0.9. D-dimer 1.25. Sodium 130. Potassium 4.1. Creatinine 0.79. LDH 725. Troponin 0.014. C-reactive protein 48.8. Currently 19 screen pending. Pro-calcitonin pending. Chest x-ray revealed moderate cardiomegaly. Hiatal hernia. Fibrotic changes and mild atelectasis at lung bases. No heart failure. She is seen today on the regular medical floor. She is awake and alert in no acute distress. She has minimal shortness of breath with exertion. She is on a nonrebreather mask at 15 L to maintain O2 saturati ons in the 90s. She's currently afebrile. She presented with a T-max of 100.7. She's had a dry nonproductive cough. She's been initiated on Symbicort, DuoNeb inhalations. Antibiotics in the form of azithromycin. She did receive ceftriaxone 1. There is some edema of the lower extremities. Venous Doppler negative for DVTs bilaterally. The patient is seen today 01/30/2020 in follow-up on the regular medical floor. She is awake and alert in no acute distress. She is breathing easier today compared to yesterday. Abdominal pain slightly improved as well. Chest x-ray reveals cardiomegaly with subsegmental basilar atelectatic changes. Computed tomography scan of the chest revealed no evidence of pulmonary emboli. There is some evidence of pulmonary artery hypertension. Cardiomegaly. Evidence of right heart failure with pulmonary venous hypertension and interstitial edema. There is a para esophageal hernia with partial intrathoracic stomach. She is maintaining good O2 saturations in the 90s on 6 L/m per nasal cannula. Afebrile. Hemodynamically stable. Blood cultures reveal no growth. Sodium 137. Potassium 3.8. Creatinine 0.82. CoVID 19 testing still pending. She remains on ceftriaxone, bronchodilators, oral diuretics. Objective - Vital Signs Vital signs: Vital Signs Temp 98.4 F 01/30/20 07:00 Pulse 72 01/30/20 12:50 Resp 18 01/30/20 07:00 BP 138/72 01/30/20 07:00 Pulse Ox 92 L 01/30/20 07:00 Intake & Output 01/29/20 01/30/20 01/30/20 18:59 06:59 18:59 Other: Voiding Method Toilet # Voids 2 4 - Exam GENERAL EXAM: Alert, active, pleasant 79-year-old, on 6 L currently, comfortable in no apparent distress. HEAD: Normocephalic. EYES: Normal reaction of pupils, equal size. NOSE: Clear with pink turbinates. THROAT: No erythema or exudates. NECK: No masses, no JVD. CHEST: No chest wall deformity. LUNGS: Equal air entry with crackles in the bilateral posterior bases, diminished. CVS: S1 and S2 normal with no audible murmur, regular rhythm. ABDOMEN: No hepatosplenomegaly, normal bowel sounds, no guarding or rigidity. SPINE: No scoliosis or deformity SKIN: No rashes CENTRAL NERVOUS SYSTEM: No focal deficits, tone is normal in all 4 extremities. EXTREMITIES: There is 1-2+ peripheral edema. No clubbing, no cyanosis. Peripheral pulses are intact. - Labs CBC & Chem 7: 01/29/20 02:41 01/30/20 08:10 Labs: Abnormal Lab Results - Last 24 Hours (Table) 01/30/20 01/30/20 Range/Units 00:00 08:10 BUN 21 H (7-17) mg/dL Ur Specific [place] 1.050 H (1.001-1.035) Urine Protein 1+ H (Negative) Urine Bilirubin 1+ H (Negative) Urine Mucus Occasional H (None) /hpf Microbiology - Last 24 Hours (Table) 01/29/20 02:41 Blood Culture - Preliminary Blood No Growth after 24 hours Assessment and Plan Assessment: 1 Abdominal discomfort of unclear etiology, computed tomography scan of the abdomen revealed evidence of diverticulosis but no diverticulitis, previous colon surgery, large hiatal hernia 2 Acute exacerbation of chronic obstructive pulmonary disease 3 Acute on chronic hypoxic respiratory failure secondary to above, CoVID 19 screen pending, CT angiogram ruled out pulmonary embolism. There is some suspected pulmonary hypertension. Evidence of right heart failure. Interstitial edema. 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 4 Lower extremity edema, Dopplers negative for DVT 5 Coronary artery disease with previous stent placement 6 Hyperlipidemia 7 Hypertension 8 History of ulcerative colitis 9 History of chronic tobacco dependence Plan: The patient was seen and evaluated by Dr. Hanson CAT scan and labs reviewed No acute pulmonary process CoVID 19 screen pending Titrate down the FiO2 as tolerated We will continue to follow and make further recommendations based on her clinical status I, the cosigning physician, performed a history & physical examination of the patient. Lungs sounds with crackles in the bilateral bases. Maintaining good O2 saturations in the 90s on 6 L nasal cannula. I discussed the assessment and plan of care with my nurse practitioner, Milka Kwong. I attest to the above note as dictated by her.
[2020-01-30] MEDS ORDERED: FUROSEMIDE 10 MG/ML 4 ML VIAL IV STA (13:47)
--- NOTE | 2020-01-30 14:45 | P.PN ---
Subjective 79-year-old female came in with complaints of shortness of breath has been going on for last few days progressively worse was complaining of abdominal pain and diarrhea patient has hearing problem because of which she is a poor historian when asked about fever patient said she had fever, patient had fever of 100.7 in ER.patient is presently requiring 15 L of oxygen. COVID 19 testing was ordered ,she is a former smoker does have history of COPD with nausea did not wheezing on exam.patient does have increased LDH increase her d-dimer CT for pulmonary embolism is being obtained patient has lymphopenia all consistent and highly suspicious for Covid 19. 01/30/2020 Patient's covid 19 testing is pending. her respiratory status did improve of the chest x-ray is as well as An Is a Suspicious for Pulmonary Edema, Lasix Was Started Back IV Fluids Were Discontinued I'll Give Additional Dose of IV Lasix Now. Patient May Have Diastolic Dysfunction Patient Does Have Right-Sided Heart Failure and Moderate Pulmonary Hypertension. He Has Systolic Function Was Essentially within Normal Limits and a Recent Echocardiogram. Patient CAT Scan Is Negative for Pulmonary Embolism Constitutional: Denied any fatigue denied any fever. Cardio vascular: denied any chest pain, palpitations Gastrointestinal denied any nausea vomiting Pulmonary: sshortness of breath significantly improved Neurologic denied any new focal deficits All inpatient medications were reviewed and appropriate changes in these medications as dictated in the interval history and assessment and plan. Objective - Vital Signs Vital signs: Vital Signs Temp 98.4 F 01/30/20 07:00 Pulse 72 01/30/20 12:50 Resp 18 01/30/20 07:00 BP 138/72 01/30/20 07:00 Pulse Ox 92 L 01/30/20 07:00 Intake & Output 01/29/20 01/30/20 01/30/20 18:59 06:59 18:59 Other: Voiding Method Toilet # Voids 2 4 - Exam PHYSICAL EXAMINATION: GENERAL: The patient is alert and oriented x3, not in any acute distress. Well developed, well nourished. HEENT: Pupils are round and equally reacting to light. EOMI. No scleral icterus. No conjunctival pallor. Normocephalic, atraumatic. No pharyngeal erythema. No thyromegaly. CARDIOVASCULAR: S1 and S2 present. No murmurs, rubs, or gallops. PULMONARY: Chest is clear to auscultation, no wheezing or crackles. ABDOMEN: Soft, nontender, nondistended, normoactive bowel sounds. No palpable organomegaly. MUSCULOSKELETAL: No joint swelling or deformity. EXTREMITIES: No cyanosis, clubbing, or pedal edema. NEUROLOGICAL: Gross neurological examination did not reveal any focal deficits. SKIN: No rashes. Note: Because of COVID 19 isolation, some of the history and physical exam findings or indirect and obtained from nursing staff, and other physician examinations to avoid unnecessary contact with the patient. - Labs CBC & Chem 7: 01/29/20 02:41 01/30/20 08:10 Labs: Abnormal Lab Results - Last 24 Hours (Table) 01/30/20 01/30/20 Range/Units 00:00 08:10 BUN 21 H (7-17) mg/dL Ur Specific Bogart 1.050 H (1.001-1.035) Urine Protein 1+ H (Negative) Urine Bilirubin 1+ H (Negative) Urine Mucus Occasional H (None) /hpf Microbiology - Last 24 Hours (Table) 01/29/20 02:41 Blood Culture - Preliminary Blood No Growth after 24 hours Assessment and Plan Plan: -acute hypoxic respiratory failure: Most probably secondary to COVID 19pneumonitis. Supportive care patient may need steroids, PCR is pending. Patient does have CT and chest x-ray findings of possible heart failure Lasix was resumed will give her an additional dose of IV Lasixdid patient is presently on Rocephin and azithromycin as per infectious disease -Possible congestive heart failure along with right-sided heart failure patient may have diastolic dysfunction may be in mild acute exacerbation -elevated d-dimer most probably secondary to COVI 19,PE was ruled out with a computed tomography scan contrast Doppler of bilateral lower extremity negative for DVT -COPD without any significant exacerbation -hypertension:hold off losartan because of sepsis -History of ulcerative colitis -sepsis secondary to assessment #1: Continue with IV fluids hold of Lasix -moderate to severe pulmonary hypertension -DVT prophylaxis with Lovenox
[2020-01-30] MEDS: DONEPEZIL 10 MG TAB PO SCH (20:35)
--- NOTE | 2020-01-31 03:50 | PN ---
PROGRESS NOTE DATE OF SERVICE: 01/30/2020 REASON FOR FOLLOWUP: Possible pneumonia and left lower extremity cellulitis. INTERVAL HISTORY: The patient is currently afebrile. The patient is breathing more comfortably, feeling better compared to yesterday. Denies having any chest pain. Did have some cough, no sputum, no nausea, no abdominal pain. Just some swelling and redness of the left leg more than the right leg and no diarrhea. PHYSICAL EXAMINATION: Blood pressure 119/75 with a pulse of 65, temperature 98.3. She is 91% on 6 L nasal cannula. General description is an elderly female up in the bed in no distress. Respiratory system: Unlabored breathing with decreased breath sounds in the base, with no wheeze. Heart S1, S2. Regular rate and rhythm. Abdomen is soft, no tenderness. Left leg did have swelling and redness more than right leg. LABS: BUN of 21, creatinine 0.82. CBC was not done today. Blood culture has been negative. No sputum collected. DIAGNOSTIC IMPRESSION AND PLAN: Patient presented to the hospital with shortness of breath, right-sided chest pain and abdominal pain with concern for possible component of pneumonia and left lower extremity cellulitis. The patient is covered with Rocephin and Zithromax to continue and monitor clinical course closely. Continue supportive care. MMODL / IJN: [id number] /
[2020-01-31] MEDS: AZITHROMYCIN 500 MG TAB PO SCH (05:27)
[2020-01-31] MEDS: IPRATROPIUM-ALBUTEROL 3 ML NEB INHALATION PRN ×4 (07:37→20:49)
[2020-01-31] MEDS: BUDESONIDE 1 MG/2 ML NEBU INHALATION SCH ×2 (07:37→20:49)
[2020-01-31 07:59] LABS: HCT 40.1 % (34.0-46.0); HGB 12.7 gm/dL (11.4-16.0); Hypochromasia Moderate; MCH 31.6 pg (25.0-35.0); MCHC 31.6 g/dL (31.0-37.0); MCV 100.1 fL (80.0-100.0); Macrocytosis Slight; Mean Platelet Volume 8.4; Platelet Count 164 k/uL (150-450); RBC 4.01 m/uL (3.80-5.40); RDW 15.3 % (11.5-15.5); WBC 12.6 k/uL (3.8-10.6)
[2020-01-31 08:12] LABS: Calcium 8.5 mg/dL (8.4-10.2); Potassium 3.8 mmol/L (3.5-5.1)
--- NOTE | 2020-01-31 09:15 | P.PN ---
Subjective Progress Note Date: 01/31/20 Principal diagnosis: Abdominal discomfort of unclear etiology This is a very pleasant 79-year-old female patient who follows with Dr. Gómez as her primary care provider. She has a history of SVT, coronary artery disease with previous stent placement, alterative colitis, hypertension. She also has a history of chronic tobacco dependence and chronic obstructive pulmonary disease and follows in our office for the same. She is oxygen dependent. She is maintained on Symbicort and Ventolin. FEV1 value 74% of predicted. She was last seen in June 2019. She presented here to the emergency room earlier this morning with complaints of abdominal pain. Computed tomography scan of the abdomen revealed colonic diverticulosis without diverticulitis. Previous colon surgery. Large hiatal hernia. Cardiomegaly. There is also infiltrates and atelectasis of the lung bases. We're consulted for the same. White count 20.7. Hemoglobin 13.6. Lymphocytes 0.9. D-dimer 1.25. Sodium 130. Potassium 4.1. Creatinine 0.79. LDH 725. Troponin 0.014. C-reactive protein 48.8. Currently 19 screen pending. Pro-calcitonin pending. Chest x-ray revealed moderate cardiomegaly. Hiatal hernia. Fibrotic changes and mild atelectasis at lung bases. No heart failure. She is seen today on the regular medical floor. She is awake and alert in no acute distress. She has minimal shortness of breath with exertion. She is on a nonrebreather mask at 15 L to maintain O2 saturati ons in the 90s. She's currently afebrile. She presented with a T-max of 100.7. She's had a dry nonproductive cough. She's been initiated on Symbicort, DuoNeb inhalations. Antibiotics in the form of azithromycin. She did receive ceftriaxone 1. There is some edema of the lower extremities. Venous Doppler negative for DVTs bilaterally. The patient is seen today 01/30/2020 in follow-up on the regular medical floor. She is awake and alert in no acute distress. She is breathing easier today compared to yesterday. Abdominal pain slightly improved as well. Chest x-ray reveals cardiomegaly with subsegmental basilar atelectatic changes. Computed tomography scan of the chest revealed no evidence of pulmonary emboli. There is some evidence of pulmonary artery hypertension. Cardiomegaly. Evidence of right heart failure with pulmonary venous hypertension and interstitial edema. There is a para esophageal hernia with partial intrathoracic stomach. She is maintaining good O2 saturations in the 90s on 6 L/m per nasal cannula. Afebrile. Hemodynamically stable. Blood cultures reveal no growth. Sodium 137. Potassium 3.8. Creatinine 0.82. CoVID 19 testing still pending. She remains on ceftriaxone, bronchodilators, oral diuretics. the patient is seen today 01/31/2020 in follow-up on the regular medical floor.she is awake and alert in no acute distress. Maintaining good O2 saturations in the low 90s on 8 L high flow nasal cannula. She's been afebrile. Hemodynamically stable.blood cultures reveal no growth.white count 12.6. Hemoglobin 12.7. Sodium 137. Potassium 3.8. Bicarb 28. Creatinine 0.75. Hill virus testing still pending. She is continued on ceftriaxone and azithromycin along with DuoNeb inhalations, Pulmicort inhalations, oral diuretics. Objective - Vital Signs Vital signs: Vital Signs Temp 98.6 F 01/31/20 01:12 Pulse 72 01/31/20 07:52 Resp 19 01/31/20 01:12 BP 123/83 01/31/20 01:12 Pulse Ox 90 L 01/31/20 07:37 Intake & Output 01/30/20 01/31/20 01/31/20 18:59 06:59 18:59 Intake Total 540 Balance 540 Intake: Oral 540 Other: Voiding Method Toilet # Voids 6 2 - Exam GENERAL EXAM: Alert, active, pleasant 79-year-old, on 8 L currently, comfortable in no apparent distress. HEAD: Normocephalic. EYES: Normal reaction of pupils, equal size. NOSE: Clear with pink turbinates. THROAT: No erythema or exudates. NECK: No masses, no JVD. CHEST: No chest wall deformity. LUNGS: Equal air entry with crackles in the bilateral posterior bases, diminished. CVS: S1 and S2 normal with no audible murmur, regular rhythm. ABDOMEN: No hepatosplenomegaly, normal bowel sounds, no guarding or rigidity. SPINE: No scoliosis or deformity SKIN: No rashes CENTRAL NERVOUS SYSTEM: No focal deficits, tone is normal in all 4 extremities. EXTREMITIES: There is 1-2+ peripheral edema. Some redness of the left lower extremity. No clubbing, no cyanosis. Peripheral pulses are intact. - Labs CBC & Chem 7: 01/31/20 06:46 01/31/20 06:46 Labs: Abnormal Lab Results - Last 24 Hours (Table) 01/31/20 Range/Units 06:46 WBC 12.6 H (3.8-10.6) k/uL MCV 100.1 H (80.0-100.0) fL Microbiology - Last 24 Hours (Table) 01/29/20 02:41 Blood Culture - Preliminary Blood No Growth after 48 hours Assessment and Plan Assessment: 1 Abdominal discomfort of unclear etiology, computed tomography scan of the abdomen revealed evidence of diverticulosis but no diverticulitis, previous colon surgery, large hiatal hernia 2 Acute exacerbation of chronic obstructive pulmonary disease 3 Acute on chronic hypoxic respiratory failure secondary to above, CoVID 19 screen pending, CT angiogram ruled out pulmonary embolism. There is some suspected pulmonary hypertension. Evidence of right heart failure. Interstitial edema. 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 4 Lower extremity edema, Dopplers negative for DVT 5 Coronary artery disease with previous stent placement 6 Hyperlipidemia 7 Hypertension 8 History of ulcerative colitis 9 History of chronic tobacco dependence Plan: The patient was seen and evaluated by Dr. Gunn Currently on ceftriaxone and azithromycin Remains on bronchodilators CoVID 19 screen still pending Titrate down the FiO2 as tolerated We will continue to follow and make further recommendations based on her clinical status I, the cosigning physician, performed a history & physical examination of the patient. Lungs sounds with crackles in the bilateral bases. Maintaining good O2 saturations in the 90s on 6 L nasal cannula. I discussed the assessment and plan of care with my nurse practitioner, Milka Kwong. I attest to the above note as dictated by her.
[2020-01-31] MEDS: PRAVASTATIN SODIUM 20 MG TAB PO SCH (09:26)
[2020-01-31] MEDS: POTASSIUM CITRATE 10 MEQ TABLET.ER PO SCH (09:26)
[2020-01-31] MEDS: FUROSEMIDE 40 MG TAB PO SCH ×2 (09:26→17:23)
[2020-01-31] MEDS: ISOSORBIDE MONONITRATE ER 30 MG TAB.ER.24H PO SCH ×2 (09:26→21:00)
[2020-01-31] MEDS: METOPROLOL TARTRATE 25 MG TAB PO SCH (09:26)
[2020-01-31] MEDS: PANTOPRAZOLE 40 MG TABLET PO SCH (09:26)
[2020-01-31] MEDS: ASPIRIN 81 MG PO SCH (09:26)
[2020-01-31 12:30] LABS: Ferritin 56.3 ng/mL (10.0-291.0)
--- NOTE | 2020-01-31 16:59 | PN ---
PROGRESS NOTE DATE OF SERVICE: 01/31/2020 REASON FOR FOLLOW UP: Possible pneumonia and left lower extremity cellulitis. INTERVAL HISTORY: The patient is currently afebrile, patient is breathing comfortably. Patient denies having any chest pain. No shortness of breath or cough. No abdominal pain. Left leg redness has slightly decreased. PHYSICAL EXAMINATION: Blood pressure 150/72 with a pulse of 87, temperature 98.8, she is 92% on 6 L nasal cannula. General description is an elderly female, up in the bed, in no distress. RESPIRATORY SYSTEM: Unlabored breathing, decreased breath sounds, no wheeze. HEART: S1, S2. Regular rate and rhythm. ABDOMEN: Soft, no tenderness. Left leg redness slightly decreased. LABS: White count 12.6, creatinine 0.75. DIAGNOSTIC IMPRESSION AND PLAN: Patient admitted to the hospital with increasing shortness of breath. and concern for possible pneumonia and left lower extremity cellulitis. Patient covered with Rocephin and Zithromax to continue and will monitor clinical course closely. Continue supportive care. MMODL / IJN: [id number] /
[2020-01-31] MEDS: DONEPEZIL 10 MG TAB PO SCH (21:00)
--- NOTE | 2020-01-31 22:10 | P.PN ---
Subjective Progress Note Date: 01/31/20 Adri Dominguez is an 79 yo F with hx COPD on home O2 who is admitted with shortness of breath. She initially required up to 15 L O2 via NRB and is now down to 8 L NC. On initial presentation her WBC was 20k and procalcitonin 0.12, CTA with interstitial prominence and evidence of R heart failure. She is being followed by ID and Pulmonary, continues on rocephin and azithromycin as well as duonebs. Her COVID screen did come back as negative today. Objective - Vital Signs Vital signs: Vital Signs Temp 97.9 F 01/31/20 15:00 Pulse 84 01/31/20 21:03 Resp 18 01/31/20 15:00 BP 109/70 01/31/20 15:00 Pulse Ox 92 L 01/31/20 15:00 Intake & Output 01/31/20 01/31/20 02/01/20 06:59 18:59 06:59 Intake Total 300 Balance 300 Intake: Intake, IV Titration 50 Amount cefTRIAXone 1 gm In 50 Sodium Chloride 0.9% 50 ml @ 100 mls/hr IVPB Q24HR [facility] Rx#:[id number] Oral 250 Other: Voiding Method Toilet Toilet Bedside Commode # Voids 2 1 - Exam General: elderly female in NAD. Vitals reviewed Lungs: normal respiratory effort, no wheezes or rales CV: Regular rate and rhythm, no murmur. Peripheral pulses 2+ Abdomen: soft, nondistended, no organomegaly Skin: warm and dry. - Labs CBC & Chem 7: 01/31/20 06:46 01/31/20 06:46 Labs: Abnormal Lab Results - Last 24 Hours (Table) 01/29/20 01/31/20 Range/Units 02:41 06:46 WBC 12.6 H (3.8-10.6) k/uL MCV 100.1 H (80.0-100.0) fL Procalcitonin 0.12 H (0.02-0.09) ng/mL Microbiology - Last 24 Hours (Table) 01/29/20 02:41 Blood Culture - Preliminary Blood No Growth after 48 hours Assessment and Plan (1) Abdominal pain Current Visit: Yes Status: Acute Code(s): R10.9 - UNSPECIFIED ABDOMINAL PAIN SNOMED Code(s): 50436933 (2) Acute exacerbation of chronic obstructive pulmonary disease (COPD) Current Visit: Yes Status: Acute Code(s): J44.1 - CHRONIC OBSTRUCTIVE PULMONARY DISEASE W (ACUTE) EXACERBATION SNOMED Code(s): 179247820 (3) Community acquired bacterial pneumonia Current Visit: Yes Status: Acute Code(s): J15.9 - UNSPECIFIED BACTERIAL PNEUMONIA SNOMED Code(s): 624292763 Plan: 1. Acute hypoxic respiratory failure. Suspect secondary to CAP. ID following, continue rocephin and azithromycin. Continue duonebs, wean O2 as tolerated 2. Chronic diastolic CHF. Continue home lasix 3. CAD 4. HLD
[2020-02-01] MEDS: AZITHROMYCIN 500 MG TAB PO SCH (05:10)
[2020-02-01] MEDS: IPRATROPIUM-ALBUTEROL 3 ML NEB INHALATION PRN ×4 (09:17→20:29)
[2020-02-01] MEDS: BUDESONIDE 1 MG/2 ML NEBU INHALATION SCH ×2 (09:17→20:29)
[2020-02-01] MEDS: PRAVASTATIN SODIUM 20 MG TAB PO SCH (09:39)
[2020-02-01] MEDS: METOPROLOL TARTRATE 25 MG TAB PO SCH (09:39)
[2020-02-01] MEDS: PANTOPRAZOLE 40 MG TABLET PO SCH (09:39)
[2020-02-01] MEDS: ISOSORBIDE MONONITRATE ER 30 MG TAB.ER.24H PO SCH ×2 (09:39→20:52)
[2020-02-01] MEDS: ASPIRIN 81 MG PO SCH (09:39)
[2020-02-01] MEDS: POTASSIUM CITRATE 10 MEQ TABLET.ER PO SCH (09:40)
[2020-02-01] MEDS: FUROSEMIDE 40 MG TAB PO SCH ×2 (09:40→17:07)
--- NOTE | 2020-02-01 13:44 | CDI ---
Documentation Clarification Form Date: 02/01/2020 01:27:26 PM From: Makayla Ochoa RN CCDS Admit Date: 01/29/2020 04:23:00 AM Patient Name: Adri Dominguez Visit Number: [id number] Discharge Date: ATTENTION: The Clinical Documentation Specialists (CDI) and [facility] Coding Staff appreciate your assistance in clarifying documentation. Please respond to the clarification below the line at the bottom and electronically sign. The CDI & [facility] Coding staff will review the response and follow-up if needed. Please note: Queries are made part of the Legal Health Record. If you have any questions, please contact the author of this message via ITS. Dr. Gabriel White The diagnosis Sepsis was documented in the H&P 01/28 and Progress note 01/29 but is not noted in subsequent documentation. History/Risk Factors: 79-year-old female presents to the ED with shortness of breath that has been on going and getting worse, abdominal pain, diarrhea and fever. Medical history of COPD, HTN and Heart Failure Clinical Indicators: 01/28 CXR Fibrotic changes and mild atelectasis at the lung bases. 01/28 114/71 77 98.7 20 93% High Flow Nasal Cannula 01/28 Labs Wbc 20.7, Neutrophils 18.6, Lymphocytes 0.9, D-dimer1.25, Bun 25, AST 39, LDH 725, CRP 48.8, Procalcitonin 0.12 Treatment: 01/28 0.9 NS 1L bolus, Ceftriaxone Ivpb Daily, 01/29 Azithromycin oral dcd 01/31 Please clarify if the Sepsis was Present/active this admission Treated and resolved this admission Ruled out Other, please specify Clinically unable to determine (Last Query Form Revision: May 2019) treated and resolved MTDD
--- NOTE | 2020-02-01 14:00 | CDI ---
Documentation Clarification Form Date: 02/01/2020 01:44:47 PM From: Makayla Ochoa Admit Date: 01/29/2020 04:23:00 AM Patient Name: Adri Dominguez Visit Number: [id number] Discharge Date: ATTENTION: The Clinical Documentation Specialists (CDI) and [facility] Coding Staff appreciate your assistance in clarifying documentation. Please respond to the clarification below the line at the bottom and electronically sign. The CDI & [facility] Coding staff will review the response and follow-up if needed. Please note: Queries are made part of the Legal Health Record. If you have any questions, please contact the author of this message via ITS. Dr. Gabriel White The COVID-19 test obtained on 01/28 was reported as Negative on 01/30. Per Internal Medicine Progress Note 01/29 Elevated d-dimer most probably secondary to COVID 19, PE was ruled out with a computed tomography scan contrast Doppler of bilateral lower extremity negative for DVT Patient history/risk factors: History/Risk Factors: 79-year-old female presents to the ED with shortness of breath that has been on going and getting worse, abdominal pain, diarrhea and fever. Medical history of COPD, HTN and Heart Failure Clinical Indicators 01/30 Family Practice progress note " Covid 19 screen did come back as negative today." 01/28 CXR Fibrotic changes and mild atelectasis at the lung bases. 01/28 114/71 77 98.7 20 93% High Flow Nasal Cannula 01/28 Labs Wbc 20.7, Neutrophils 18.6, Lymphocytes 0.9, D-dimer1.25, Bun 25, AST 39, LDH 725, CRP 48.8, Procalcitonin 0.12 Pulmonary consult 01/28 Acute on chronic hypoxic respiratory failure secondary to above, COVID 19 screen pending. Treatment: 01/28 0.9 NS 1L bolus, Ceftriaxone Ivpb Daily, 01/29 Azithromycin oral dcd 01/31 In order to capture the severity of condition, please clarify the COVID-19 status: False negative, treating for COVID-19 infection COVID-19 ruled out Other, please specify (Last Form Revision: November 2019) COVID19 ruled out MTDD
--- NOTE | 2020-02-01 15:08 | PN ---
PROGRESS NOTE PULMONARY/CRITICAL CARE PROGRESS NOTE: DATE OF SERVICE: 02/01/2020 This is a patient who was again seen on February 01, 2020. She is on a general medical floor. She is awake and alert. She is in no acute distress. Saturations are excellent. We asked her about her abdominal pain. She states that they have completely gone away. She denies any nausea, vomiting, abdominal cramping, or abdominal pain. Her breathing is stable. She denies any shortness of breath, difficulty breathing, coughing, wheezing or phlegm production. There is no fever or chills. The patient is hoping to be discharged in the near future. Current vital signs are reviewed. Temperature is 98.2, heart rate 88, respiratory rate 18, blood pressure 134/78 mean 96, 8 L saturation 91%. Appears in no acute distress. No respiratory distress. No audible wheezing, use of accessory muscles, or conversational dyspnea. HEENT: Examination is grossly unremarkable. Mucous membranes are moist. Nasal O2 noted. NECK: Supple, full range of motion. No adenopathy. Neck veins are flat. CARDIOVASCULAR: Examination reveals regular rhythm and rate. Heart rate 88. S1, S2 normal. Heart sounds are distant. LUNGS: Reveal mostly clear breath sounds. A few scattered mild rhonchi. No wheezes or crackles. ABDOMEN: Soft, bowel sounds are heard. EXTREMITIES: Intact. No cyanosis, clubbing, or edema. SKIN: Without rash. NEUROLOGIC: Examination is brief but nonfocal. LABS: Reviewed. Nothing new from today as yet. Microbiology is negative. No new chest x-rays to report. Medications are reviewed. ASSESSMENT: 1. Abdominal discomfort, of unclear etiology, completely resolved. CT scan of the abdomen revealed evidence of diverticulosis without diverticulitis. 2. Acute exacerbation of chronic obstructive pulmonary disease, improved. Respiratory status is improved, although oxygen requirements are still significant. 3. Acute on chronic hypoxemic respiratory failure. No evidence of pulmonary embolism on CT angiogram. 4. Lower extremity edema, improved. 5. No evidence of deep venous thrombosis. 6. Hyperlipidemia. 7. History of hypertension. 8. History of ulcerative colitis. 9. History of tobacco dependence syndrome. 10. CAD with stent placement. PLAN: The patient seems to be doing a lot better. She remains on antibiotics. She is still on 8 L nasal O2. Her CT angiogram was negative for PE. Lower extremity Dopplers are negative for DVT. Oxygen will be titrated down. Abdominal pain is completely dissipated. Her COVID-19 test did come back negative. We will continue to follow. Prognosis is guarded. MMODL / IJN: [id number] / MTDD
[2020-02-01] MEDS: DONEPEZIL 10 MG TAB PO SCH (20:52)
--- NOTE | 2020-02-01 21:05 | PN ---
PROGRESS NOTE DATE OF SERVICE: 02/01/2020 REASON FOR FOLLOWUP: Left lower extremity cellulitis. INTERVAL HISTORY: The patient is currently afebrile. The patient is breathing more comfortably. Denies having any chest pain or shortness of breath. Occasional cough. No nausea or vomiting or abdominal pain. Left leg swelling and redness slightly decreased. PHYSICAL EXAMINATION: Blood pressure is 134/78 with a pulse of 80, temperature 98.2. She is 91% on 8 L oxygen. General description is an elderly female lying in bed in no distress. RESPIRATORY SYSTEM: Unlabored breathing with decreased intensity of breath sounds. No wheeze. HEART: S1, S2. Regular rate and rhythm. ABDOMEN: Soft. No tenderness. Left leg swelling persists. Redness slightly decreased. LABS: No new labs have been obtained today. Blood culture has been negative. DIAGNOSTIC IMPRESSION AND PLAN: 1. Patient admitted to hospital with shortness of breath which is likely multifactorial with concern for possible tracheobronchitis and a question of pneumonia, and left lower extremity cellulitis. We will switch antibiotic to cefazolin 2 grams q.8 to cover for the cellulitis, the likely source of her fever, along with Lenin wrap to the leg to keep the swelling down. 2. Right leg wound. Local wound care with dry Aquacel Silver dressing. MMODL / IJN: [id number] /
--- NOTE | 2020-02-01 22:41 | P.PN ---
Subjective Progress Note Date: 02/01/20 Adri Dominguez is an 79 yo F with hx COPD on home O2 who is admitted with shortness of breath. She initially required up to 15 L O2 via NRB and is now down to 8 L NC. On initial presentation her WBC was 20k and procalcitonin 0.12, CTA with interstitial prominence and evidence of R heart failure. She is being followed by ID and Pulmonary, continues on rocephin and azithromycin as well as duonebs. Her COVID screen did come back as negative today. 01/31: Pt is feeling improved but remains on 8 L O2 today. She has remained afebrile and her lower extremity swelling and redness are improved. Her antib iotics are switched to ancef per ID today Objective - Vital Signs Vital signs: Vital Signs Temp 98.2 F 02/01/20 14:03 Pulse 88 02/01/20 20:47 Resp 18 02/01/20 20:00 BP 134/78 02/01/20 14:03 Pulse Ox 91 L 02/01/20 16:14 Intake & Output 02/01/20 02/01/20 02/02/20 06:59 18:59 06:59 Intake Total 480 Balance 480 Intake: Oral 480 Other: Voiding Method Toilet Toilet Bedside Commode Bedside Commode # Voids 1 5 - Exam General: elderly female in NAD. Vitals reviewed Lungs: normal respiratory effort, no wheezes or rales CV: Regular rate and rhythm, no murmur. Peripheral pulses 2+ Abdomen: soft, nondistended, no organomegaly Skin: warm and dry. RLE erythema - Labs CBC & Chem 7: 01/31/20 06:46 01/31/20 06:46 Labs: Microbiology - Last 24 Hours (Table) 01/29/20 02:41 Blood Culture - Preliminary Blood No Growth after 72 hours Assessment and Plan (1) Abdominal pain Current Visit: Yes Status: Acute Code(s): R10.9 - UNSPECIFIED ABDOMINAL PAIN SNOMED Code(s): 10198621 (2) Acute exacerbation of chronic obstructive pulmonary disease (COPD) Current Visit: Yes Status: Acute Code(s): J44.1 - CHRONIC OBSTRUCTIVE PULMONARY DISEASE W (ACUTE) EXACERBATION SNOMED Code(s): 653021198 (3) Community acquired bacterial pneumonia Current Visit: Yes Status: Acute Code(s): J15.9 - UNSPECIFIED BACTERIAL PNEUMONIA SNOMED Code(s): 507438432 Plan: 1. Acute hypoxic respiratory failure. Suspect secondary to CAP. COVID PCR negative. ID and pulmonary following, antibiotics switched to cefazolin today. Continue duonebs, wean O2 as tolerated 2. Chronic diastolic CHF. Continue home lasix 3. RLE cellulitis. Abx per ID. Local wound care 4. CAD 5. HLD
[2020-02-02] MEDS: AZITHROMYCIN 500 MG TAB PO SCH (04:54)
[2020-02-02] MEDS: IPRATROPIUM-ALBUTEROL 3 ML NEB INHALATION PRN ×4 (07:45→20:12)
[2020-02-02] MEDS: BUDESONIDE 1 MG/2 ML NEBU INHALATION SCH ×2 (07:45→20:12)
[2020-02-02] MEDS: ISOSORBIDE MONONITRATE ER 30 MG TAB.ER.24H PO SCH ×2 (09:10→22:02)
[2020-02-02] MEDS: ASPIRIN 81 MG PO SCH (09:10)
[2020-02-02] MEDS: FUROSEMIDE 40 MG TAB PO SCH ×2 (09:10→16:07)
[2020-02-02] MEDS: METOPROLOL TARTRATE 25 MG TAB PO SCH (09:10)
[2020-02-02] MEDS: PANTOPRAZOLE 40 MG TABLET PO SCH (09:10)
[2020-02-02] MEDS: PRAVASTATIN SODIUM 20 MG TAB PO SCH (09:10)
[2020-02-02] MEDS: POTASSIUM CITRATE 10 MEQ TABLET.ER PO SCH (09:11)
--- NOTE | 2020-02-02 12:32 | XR ---
EXAMINATION TYPE: XR chest 2V DATE OF EXAM: 02/02/2020 COMPARISON: 01/30/2020 HISTORY: Hypoxemia TECHNIQUE: Frontal and lateral views of the chest are obtained. FINDINGS: There is a markedly enlarged cardiomediastinal silhouette shifted to the right secondary t o patient positioning and a dextroscoliosis as seen on the prior of 01/30/2020. Platelike atelectasis at the right costophrenic angle and/or scarring. Lucency at the lung apices suggests underlying COPD assess flattening of the diaphragms on the lateral view. Large hiatal hernia. Mild multilevel degener ative change of the spine. Vertebral body heights are suboptimally evaluated. Cholecystectomy clips a re present. IMPRESSION: Stable right basilar atelectasis, known large hiatal hernia, and emphysematous change. N o acute process.
--- NOTE | 2020-02-02 13:46 | PN ---
PROGRESS NOTE DATE OF SERVICE: 02/02/2020 REASON FOR FOLLOWUP: Left lower extremity cellulitis. INTERVAL HISTORY: The patient is currently afebrile. The patient is breathing more comfortably. Patient denies having any chest pain. Did have some cough, no sputum. No nausea, no vomiting, no abdominal pain or diarrhea. PHYSICAL EXAMINATION: Blood pressure is 156/71 with a pulse 85, temperature 98. She is 91% on 8 L of oxygen. General description is an elderly female, lying in bed in no distress. RESPIRATORY SYSTEM: Unlabored breathing, decreased breath sounds at the base, no wheeze. HEART: S1, S2. Regular rate and rhythm. ABDOMEN: Soft, no tenderness. Left leg is currently wrapped up, redness slightly decreased underlying the wrap. LABS: No new labs have been obtained today. DIAGNOSTIC IMPRESSION AND PLAN: Patient with acute left lower extremity cellulitis. This patient did have evidence of fluid overload with diffuse swelling and redness. Continue with cefazolin along with Lenin wrap will likely keep the swelling down. Finish therapy with oral antibiotic on discharge. Continue supportive care. MMODL / IJN: [id number] /
--- NOTE | 2020-02-02 15:07 | PN ---
PROGRESS NOTE PULMONARY/CRITICAL CARE PROGRESS NOTE: DATE OF SERVICE: 02/02/2020 This is an 79-year-old female who was admitted on January 28. She is seen again on February 01. She is resting comfortably. She has no abdominal pain. The only issue keeping her in the hospital currently is her high concentrations of oxygen needed to maintain saturations above 90%. She is typically on 3 or 4 L at home. She is currently on 8 L by high-flow O2. She really denies any shortness of breath. She denies any coughing or wheezing. Denies any phlegm production. There is no chest pain or chest discomfort. The PA x-ray showed only emphysematous changes. She did have a prior CT angiogram back on January 29. It did show no evidence of pulmonary embolism but did show pulmonary artery hypertension. Current vital signs are stable. Temperature is 98 degrees, heart rate 84, respiratory rate 18, blood pressure 156/71 mean 99, and saturations on 8 L high flow are 91% and 93%. Appears in no acute distress. HEENT: Examination is grossly unremarkable. Nasal O2 noted. NECK: Supple, full range of motion. No adenopathy. Neck veins are flat. CARDIOVASCULAR: Examination reveals regular rhythm and rate. S1, S2 normal. No S3, S4, or murmur. Heart rate mid 80s. LUNGS: Reveal mostly clear breath sounds. Breath sounds are diminished. There are no wheezes or rhonchi. No crackles. ABDOMEN: Soft. No tenderness on palpation. Bowel sounds are noted. EXTREMITIES: Intact. No cyanosis, clubbing, or edema. SKIN: Without rash. NEUROLOGIC: Examination is nonfocal. She is awake and alert. Microbiology is negative. LABS: Reviewed. Nothing new to report. Current medications are reviewed. She is currently on Tylenol, aspirin, Zithromax, Pulmicort, Ancef, benazepril, Lasix, DuoNeb, Imdur, metoprolol, potassium replacement, as well as pravastatin. Missing of note is formoterol. ASSESSMENT: 1. Shortness of breath, probably related to underlying chronic obstructive pulmonary disease exacerbation. The patient still requires significant oxygen at the current time. 2. Acute on chronic hypoxemic respiratory failure without evidence of PE on CT angiogram. 3. Abdominal discomfort, of unclear etiology. CAT scan showed evidence of diverticulosis without diverticulitis. Abdominal pain is completely resolved. 4. Lower extremity edema, improved. 5. No evidence of deep venous thrombosis. 6. Hyperlipidemia. 7. History of hypertension. 8. History of ulcerative colitis. 9. History of tobacco dependence syndrome. 10.Coronary artery disease with stent placement. PLAN: I will go ahead and add some Perforomist to the regimen. In addition, I will add some oral prednisone. Hopefully her oxygenation improves. Will continue to follow. Prognosis is guarded. MMODL / IJN: [id number] /
[2020-02-02] MEDS: predniSONE 20 MG TAB PO SCH (16:06)
[2020-02-02] MEDS: FORMOTEROL FUMARATE 20 MCG/2 ML NEBU INHALATION SCH (20:12)
--- NOTE | 2020-02-02 21:43 | P.PN ---
Subjective Progress Note Date: 02/02/20 Adri Dominguez is an 79 yo F with hx COPD on home O2 who is admitted with shortness of breath. She initially required up to 15 L O2 via NRB and is now down to 8 L NC. On initial presentation her WBC was 20k and procalcitonin 0.12, CTA with interstitial prominence and evidence of R heart failure. She is being followed by ID and Pulmonary, continues on rocephin and azithromycin as well as duonebs. Her COVID screen did come back as negative today. 01/31: Pt is feeling improved but remains on 8 L O2 today. She has remained afebrile and her lower extremity swelling and redness are improved. Her antib iotics are switched to ancef per ID today 02/01: She remains on 8 L O2 saturating 90%. She is not short of breath and feels ready to leave the hospital. Pulmonary following and added perforomist Objective - Vital Signs Vital signs: Vital Signs Temp 97.6 F 02/02/20 20:47 Pulse 80 02/02/20 20:47 Resp 14 02/02/20 20:47 BP 158/69 02/02/20 20:47 Pulse Ox 89 L 02/02/20 20:47 Intake & Output 02/02/20 02/02/20 02/03/20 06:59 18:59 06:59 Intake Total 300 Balance 300 Intake: Oral 300 Other: Voiding Method Toilet Toilet Bedside Commode Bedside Commode # Voids 1 2 - Exam General: elderly female in NAD. Vitals reviewed Lungs: diminished breath sounds, no wheezes or rales CV: Regular rate and rhythm, no murmur. Peripheral pulses 2+ Abdomen: soft, nondistended, no organomegaly Skin: warm and dry. RLE erythema improved - Labs CBC & Chem 7: 01/31/20 06:46 01/31/20 06:46 Labs: Microbiology - Last 24 Hours (Table) 01/29/20 02:41 Blood Culture - Preliminary Blood No Growth after 96 hours Assessment and Plan (1) Abdominal pain Current Visit: Yes Status: Acute Code(s): R10.9 - UNSPECIFIED ABDOMINAL PAIN SNOMED Code(s): 88728944 (2) Acute exacerbation of chronic obstructive pulmonary disease (COPD) Current Visit: Yes Status: Acute Code(s): J44.1 - CHRONIC OBSTRUCTIVE PULMONARY DISEASE W (ACUTE) EXACERBATION SNOMED Code(s): 960387560 (3) Community acquired bacterial pneumonia Current Visit: Yes Status: Acute Code(s): J15.9 - UNSPECIFIED BACTERIAL PNEUMONIA SNOMED Code(s): 634352319 Plan: 1. Acute hypoxic respiratory failure. COPD exacerbation.. COVID PCR negative. ID and pulmonary following, antibiotics switched to cefazolin today. Continue duonebs, wean O2 as tolerated. Perforomist added today 2. Chronic diastolic CHF. Continue home lasix 3. RLE cellulitis. Abx per ID. Local wound care 4. CAD 5. HLD
[2020-02-02] MEDS: DONEPEZIL 10 MG TAB PO SCH (22:02)
[2020-02-03] MEDS: AZITHROMYCIN 500 MG TAB PO SCH (05:28)
[2020-02-03] MEDS: BUDESONIDE 1 MG/2 ML NEBU INHALATION SCH (07:12)
[2020-02-03] MEDS: FORMOTEROL FUMARATE 20 MCG/2 ML NEBU INHALATION SCH ×2 (07:12→19:31)
[2020-02-03] MEDS: IPRATROPIUM-ALBUTEROL 3 ML NEB INHALATION PRN ×4 (07:12→19:34)
[2020-02-03] MEDS: ISOSORBIDE MONONITRATE ER 30 MG TAB.ER.24H PO SCH ×2 (08:36→20:45)
[2020-02-03] MEDS: FUROSEMIDE 40 MG TAB PO SCH ×2 (08:36→15:56)
[2020-02-03] MEDS: PRAVASTATIN SODIUM 20 MG TAB PO SCH (08:36)
[2020-02-03] MEDS: predniSONE 20 MG TAB PO SCH (08:36)
[2020-02-03] MEDS: PANTOPRAZOLE 40 MG TABLET PO SCH (08:36)
[2020-02-03] MEDS: POTASSIUM CITRATE 10 MEQ TABLET.ER PO SCH (08:36)
[2020-02-03] MEDS: ASPIRIN 81 MG PO SCH (08:36)
[2020-02-03] MEDS: METOPROLOL TARTRATE 25 MG TAB PO SCH (08:36)
--- NOTE | 2020-02-03 11:47 | P.PN ---
Subjective Progress Note Date: 02/03/20 Adri Dominguez is an 79 yo F with hx COPD on home O2 who is admitted with shortness of breath. She initially required up to 15 L O2 via NRB and is now down to 8 L NC. On initial presentation her WBC was 20k and procalcitonin 0.12, CTA with interstitial prominence and evidence of R heart failure. She is being followed by ID and Pulmonary, continues on rocephin and azithromycin as well as duonebs. Her COVID screen did come back as negative today. 01/31: Pt is feeling improved but remains on 8 L O2 today. She has remained afebrile and her lower extremity swelling and redness are improved. Her antibi otics are switched to ancef per ID today 02/03/2020 continues to require 8 L nasal cannula to maintain O2 sats of 88%, in a patient who normally wears 3-5 L at home. Today patient grieving loss of cousin who yesterday, plus today is her 4-year-old grandsons BD. Patient anxious for discharge. Afebrile, WBC down to 12.6. Maintained on antibiotics of Cefazolin as per infectious disease. Denies chest pain, palpitations. Objective - Vital Signs Vital signs: Vital Signs Temp 97.8 F 02/03/20 08:30 Pulse 82 02/03/20 11:12 Resp 18 02/03/20 08:30 BP 142/86 02/03/20 08:30 Pulse Ox 89 L 02/03/20 08:30 Intake & Output 02/02/20 02/03/20 02/03/20 18:59 06:59 18:59 Other: Voiding Method Toilet Toilet Bedside Commode Bedside Commode # Voids 2 1 - Exam General: elderly female in NAD. Vitals reviewed Lungs: normal respiratory effort, clear with no wheezes or rales CV: Regular rate and rhythm, no murmur. Peripheral pulses 2+ Abdomen: soft, nondistended, no organomegaly Skin: warm and dry. Decreasing RLE erythema - Labs CBC & Chem 7: 01/31/20 06:46 01/31/20 06:46 Labs: Microbiology - Last 24 Hours (Table) 01/29/20 02:41 Blood Culture - Preliminary Blood No Growth after 120 hours Assessment and Plan Assessment: Sepsis secondary to Acute hypoxic respiratory failure, suspect secondary to his CPAP, gallardo virus reported negative Moderate to severe pulmonary hypertension Chronic diastolic CHF Right lower extremity cellulitis CAD HLD Plan: Continue on current medication regime ,monitoring and symptomatic treatment. Maintain nebulized bronchodilators, steroids, Perforomist. Adding Pulmicort to med regime.Attempting to wean down oxygen to 5 or 6 L nasal cannula O2, to facilitate discharge home. Discussed plan of care with patient at bedside who verbalizes understanding and agreement with. IV antibiotic therapy/local wound care as per ID. The impression and plan of care has been dictated as directed. : I performed a history and examination of this patient, discussed the same with the dictator. I agree with the dictator's note ,documented as a scribe. Any additional findings or plans will be noted.
--- NOTE | 2020-02-03 14:32 | P.PN ---
Subjective Progress Note Date: 02/03/20 Principal diagnosis: Abdominal discomfort of unclear etiology This is a very pleasant 79-year-old female patient who follows with Dr. Gómez as her primary care provider. She has a history of SVT, coronary artery disease with previous stent placement, alterative colitis, hypertension. She also has a history of chronic tobacco dependence and chronic obstructive pulmonary disease and follows in our office for the same. She is oxygen dependent. She is maintained on Symbicort and Ventolin. FEV1 value 74% of predicted. She was last seen in June 2019. She presented here to the emergency room earlier this morning with complaints of abdominal pain. Computed tomography scan of the abdomen revealed colonic diverticulosis without diverticulitis. Previous colon surgery. Large hiatal hernia. Cardiomegaly. There is also infiltrates and atelectasis of the lung bases. We're consulted for the same. White count 20.7. Hemoglobin 13.6. Lymphocytes 0.9. D-dimer 1.25. Sodium 130. Potassium 4.1. Creatinine 0.79. LDH 725. Troponin 0.014. C-reactive protein 48.8. Currently 19 screen pending. Pro-calcitonin pending. Chest x-ray revealed moderate cardiomegaly. Hiatal hernia. Fibrotic changes and mild atelectasis at lung bases. No heart failure. She is seen today on the regular medical floor. She is awake and alert in no acute distress. She has minimal shortness of breath with exertion. She is on a nonrebreather mask at 15 L to maintain O2 saturati ons in the 90s. She's currently afebrile. She presented with a T-max of 100.7. She's had a dry nonproductive cough. She's been initiated on Symbicort, DuoNeb inhalations. Antibiotics in the form of azithromycin. She did receive ceftriaxone 1. There is some edema of the lower extremities. Venous Doppler negative for DVTs bilaterally. The patient is seen today 01/30/2020 in follow-up on the regular medical floor. She is awake and alert in no acute distress. She is breathing easier today compared to yesterday. Abdominal pain slightly improved as well. Chest x-ray reveals cardiomegaly with subsegmental basilar atelectatic changes. Computed tomography scan of the chest revealed no evidence of pulmonary emboli. There is some evidence of pulmonary artery hypertension. Cardiomegaly. Evidence of right heart failure with pulmonary venous hypertension and interstitial edema. There is a para esophageal hernia with partial intrathoracic stomach. She is maintaining good O2 saturations in the 90s on 6 L/m per nasal cannula. Afebrile. Hemodynamically stable. Blood cultures reveal no growth. Sodium 137. Potassium 3.8. Creatinine 0.82. CoVID 19 testing still pending. She remains on ceftriaxone, bronchodilators, oral diuretics. the patient is seen today 01/31/2020 in follow-up on the regular medical floor.she is awake and alert in no acute distress. Maintaining good O2 saturations in the low 90s on 8 L high flow nasal cannula. She's been afebrile. Hemodynamically stable.blood cultures reveal no growth.white count 12.6. Hemoglobin 12.7. Sodium 137. Potassium 3.8. Bicarb 28. Creatinine 0.75. Hill virus testing still pending. She is continued on ceftriaxone and azithromycin along with DuoNeb inhalations, Pulmicort inhalations, oral diuretics. The patient is seen today 02/03/2020 in follow-up on the regular medical floor. She is currently sitting up in a chair at the bedside. Awake and alert in no acute distress. She is still requiring 6 L high flow nasal cannula to maintain O2 saturations in the low 90s high 80s. She is nearly back to her baseline. Blood cultures reveal no growth. She is continued on cefazolin and azithromycin. She is on DuoNeb inhalations, Pulmicort and Perforomist inhalations, prednisone. Oral diuretics. Objective - Vital Signs Vital signs: Vital Signs Temp 97.8 F 02/03/20 08:30 Pulse 82 02/03/20 11:12 Resp 18 02/03/20 08:30 BP 142/86 02/03/20 08:30 Pulse Ox 89 L 02/03/20 08:30 Intake & Output 02/02/20 02/03/20 02/03/20 18:59 06:59 18:59 Intake Total 100 Balance 100 Intake: IV 100 ceFAZolin 2 gm In Sodium 100 Chloride 0.9% 50 ml @ 100 mls/hr IVPB Q8HR [facility] Rx# :[id number] Other: Voiding Method Toilet Toilet Bedside Commode Bedside Commode # Voids 2 1 - Exam GENERAL EXAM: Alert, active, pleasant 79-year-old, on 6 L currently, comfortable in no apparent distress. HEAD: Normocephalic. EYES: Normal reaction of pupils, equal size. NOSE: Clear with pink turbinates. THROAT: No erythema or exudates. NECK: No masses, no JVD. CHEST: No chest wall deformity. LUNGS: Equal air entry with crackles in the bilateral posterior bases, diminished. CVS: S1 and S2 normal with no audible murmur, regular rhythm. ABDOMEN: No hepatosplenomegaly, normal bowel sounds, no guarding or rigidity. SPINE: No scoliosis or deformity SKIN: No rashes CENTRAL NERVOUS SYSTEM: No focal deficits, tone is normal in all 4 extremities. EXTREMITIES: There is 1-2+ peripheral edema. Some redness of the left lower extremity. No clubbing, no cyanosis. Peripheral pulses are intact. - Labs CBC & Chem 7: 01/31/20 06:46 01/31/20 06:46 Labs: Microbiology - Last 24 Hours (Table) 01/29/20 02:41 Blood Culture - Preliminary Blood No Growth after 120 hours Assessment and Plan Assessment: 1 Abdominal discomfort of unclear etiology, computed tomography scan of the abdomen revealed evidence of diverticulosis but no diverticulitis, previous colon surgery, large hiatal hernia 2 Acute exacerbation of chronic obstructive pulmonary disease 3 Acute on chronic hypoxic respiratory failure secondary to above, CoVID 19 screen negative, CT angiogram ruled out pulmonary embolism. There is some suspected pulmonary hypertension. Evidence of right heart failure. Interstitial edema. 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 4 Lower extremity edema, Dopplers negative for DVT 5 Coronary artery disease with previous stent placement 6 Hyperlipidemia 7 Hypertension 8 History of ulcerative colitis 9 History of chronic tobacco dependence Plan: The patient was seen and evaluated by Dr. Gunn Currently on cefazolin and azithromycin Remains on bronchodilators and steroids Titrate down the FiO2 as tolerated We will continue to follow and make further recommendations based on her clinical status I, the cosigning physician, performed a history & physical examination of the patient. Lungs sounds with crackles in the bilateral bases. Maintaining good O2 saturations in the 90s on 6 L nasal cannula. I discussed the assessment and plan of care with my nurse practitioner, Milka Kwong. I attest to the above note as dictated by her.
[2020-02-03] MEDS: BUDESONIDE 0.5 MG/2 ML NEBU INHALATION SCH ×2 (15:09→19:34)
--- NOTE | 2020-02-03 15:56 | PN ---
PROGRESS NOTE DATE OF SERVICE: 02/03/2020 REASON FOR FOLLOWUP: Left lower extremity cellulitis. INTERVAL HISTORY: Patient is currently afebrile. Patient is breathing comfortably. Patient denies having any chest pain, no shortness of breath. no cough. No abdominal pain. However, leg discomfort likely has improved. PHYSICAL EXAMINATION: Blood pressure 140/86, pulse of 82, temperature 97.8, she is 99% on 2 L nasal cannula. General description is a middle-aged female, lying in bed in no distress. RESPIRATORY SYSTEM: Unlabored breathing, clear to auscultation anteriorly. HEART: S1, S2. Regular rate and rhythm. ABDOMEN: Soft, no tenderness. Left leg dressed up. . DIAGNOSTIC IMPRESSION AND PLAN: Patient with left lower extremity cellulitis with diffuse swelling. PLAN: Patient currently on cefazolin continue local care to continue with Lenin Wrap and Aquacel dressing to the right leg. Finish therapy with oral Keflex on discharge. Continue supportive care. MMODL / IJN: [id number] /
[2020-02-03] MEDS ORDERED: BUDESONIDE 0.5 MG/2 ML NEBU INHALATION SCH (20:00)
[2020-02-03] MEDS: DONEPEZIL 10 MG TAB PO SCH (20:45)
[2020-02-04] MEDS: AZITHROMYCIN 500 MG TAB PO SCH (05:19)
[2020-02-04] MEDS: IPRATROPIUM-ALBUTEROL 3 ML NEB INHALATION PRN ×2 (07:16→11:00)
[2020-02-04] MEDS: FORMOTEROL FUMARATE 20 MCG/2 ML NEBU INHALATION SCH (07:16)
[2020-02-04] MEDS: BUDESONIDE 0.5 MG/2 ML NEBU INHALATION SCH (07:16)
[2020-02-04 07:22] VITALS: RESP 16; TEMP 98.3
[2020-02-04] MEDS: POTASSIUM CITRATE 10 MEQ TABLET.ER PO SCH (08:27)
[2020-02-04] MEDS: PANTOPRAZOLE 40 MG TABLET PO SCH (08:27)
[2020-02-04] MEDS: ASPIRIN 81 MG PO SCH (08:27)
[2020-02-04] MEDS: ISOSORBIDE MONONITRATE ER 30 MG TAB.ER.24H PO SCH (08:27)
[2020-02-04] MEDS: FUROSEMIDE 40 MG TAB PO SCH (08:27)
[2020-02-04] MEDS: METOPROLOL TARTRATE 25 MG TAB PO SCH (08:27)
[2020-02-04] MEDS: PRAVASTATIN SODIUM 20 MG TAB PO SCH (08:27)
[2020-02-04] MEDS: predniSONE 20 MG TAB PO SCH (08:28)
[2020-02-04 09:05] VITALS: BMI 28.0
--- NOTE | 2020-02-04 13:32 | P.DS ---
Providers Date of admission: 01/29/20 04:23 Attending physician: Gabriel White MD Consults: 01/29/20 04:23 Consult Physician Routine Consulting Provider: Dorota Devries Consult Reason/Comments: covid? Do you want consulting provider notified?: Yes 01/29/20 04:24 Consult Physician Routine Consulting Provider: Kathya Hudson Consult Reason/Comments: copd Do you want consulting provider notified?: Yes [facility] Course: 79-year-old female with known history of COPD is admitted for severe exacerbation CHF exacerbation patient the is presently on 5 L of oxygen cl inically doing well cleared by pulmonology and patient is being discharged today. Patient was also treated for bilateral lower limb ulcers and cellulitis in the infectious disease is recommending Keflex patient will be. Given prescription for 7 days of Keflex and will be discharged PHYSICAL EXAMINATION: GENERAL: The patient is alert and oriented x3, not in any acute distress. Well developed, well nourished. HEENT: Pupils are round and equally reacting to light. EOMI. No scleral icterus. No conjunctival pallor. Normocephalic, atraumatic. No pharyngeal erythema. No thyromegaly. CARDIOVASCULAR: S1 and S2 present. No murmurs, rubs, or gallops. PULMONARY: Chest is clear to auscultation, no wheezing or crackles. ABDOMEN: Soft, nontender, nondistended, normoactive bowel sounds. No palpable organomegaly. MUSCULOSKELETAL: No joint swelling or deformity. EXTREMITIES: No cyanosis, clubbing, or pedal edema. NEUROLOGICAL: Gross neurological examination did not reveal any focal deficits. SKIN: Cellulitis and ulcers as mentioned above Note: Because of COVID 19 isolation, some of the history and physical exam findings or indirect and obtained from nursing staff, and other physician examinations to avoid unnecessary contact with the patient. Please refer to the progress note from her PCP regarding hospitalization course and other medical problems that were addressed during this hospital physician. Patient Condition at Discharge: Fair Plan - Discharge Summary Discharge Rx Participant: No New Discharge Prescriptions: New predniSONE 10 mg PO DAILY #30 tab Ipratropium-Albuterol Nebulize [Duoneb 0.5 mg-3 mg/3 ml Soln] 3 ml INHALATION RT-Q4H PRN #0 ml PRN Reason: shortness of breath Cephalexin [Keflex] 500 mg PO Q8HR 7 Days #20 cap Continue Isosorbide Mononitrate ER [Imdur] 30 mg PO BID Pravastatin Sodium [Pravachol] 20 mg PO DAILY Budesonide-Formot 160-4.5 Mcg [Symbicort 160-4.5 Mcg Inhaler] 2 puff INHALATION RT-BID Co Q-10(Unknown Dose) 1 tab PO BID Albuterol Sulfate [Ventolin HFA] 2 puff INHALATION RT-QID PRN PRN Reason: Shortness Of Breath Vitamin B-12(Unknown Dose) 1 tab PO DAILY Esomeprazole Magnesium [NexIUM 24Hr] 20 mg PO DAILY Budesonide [Budesonide EC] 3 mg PO AC-TID Metoprolol Tartrate [Lopressor] 25 mg PO DAILY Potassium Citrate [Potassium Citrate ER] 10 meq PO DAILY Losartan Potassium [Cozaar] 50 mg PO DAILY Donepezil [Aricept] 10 mg PO HS Furosemide [Lasix] 40 mg PO BID Aspirin EC [Ecotrin Low Dose] 81 mg PO DAILY Discharge Medication List Isosorbide Mononitrate ER [Imdur] 30 mg PO BID 04/09/17 [History] Budesonide-Formot 160-4.5 Mcg [Symbicort 160-4.5 Mcg Inhaler] 2 puff INHALATION RT-BID 04/22/17 [History] Pravastatin Sodium [Pravachol] 20 mg PO DAILY 04/22/17 [History] Albuterol Sulfate [Ventolin HFA] 2 puff INHALATION RT-QID PRN 01/29/20 [History] Aspirin EC [Ecotrin Low Dose] 81 mg PO DAILY 01/29/20 [History] Budesonide [Budesonide EC] 3 mg PO AC-TID 01/29/20 [History] Co Q-10(Unknown Dose) 1 tab PO BID 01/29/20 [History] Donepezil [Aricept] 10 mg PO HS 01/29/20 [History] Esomeprazole Magnesium [NexIUM 24Hr] 20 mg PO DAILY 01/29/20 [History] Furosemide [Lasix] 40 mg PO BID 01/29/20 [History] Losartan Potassium [Cozaar] 50 mg PO DAILY 01/29/20 [History] Metoprolol Tartrate [Lopressor] 25 mg PO DAILY 01/29/20 [History] Potassium Citrate [Potassium Citrate ER] 10 meq PO DAILY 01/29/20 [History] Vitamin B-12(Unknown Dose) 1 tab PO DAILY 01/29/20 [History] Cephalexin [Keflex] 500 mg PO Q8HR 7 Days #20 cap 02/04/20 [Rx] Ipratropium-Albuterol Nebulize [Duoneb 0.5 mg-3 mg/3 ml Soln] 3 ml INHALATION RT-Q4H PRN #0 ml 02/04/20 [Rx] predniSONE 10 mg PO DAILY #30 tab 02/04/20 [Rx] Follow up Appointment(s)/Referral(s): Darby Gómez MD [Primary Care Provider] - 3 Days Patient Instructions/Handouts: Community Acquired Pneumonia (DC)
--- NOTE | 2020-02-04 14:26 | P.PN ---
Subjective Progress Note Date: 02/04/20 Principal diagnosis: Abdominal discomfort of unclear etiology This is a very pleasant 79-year-old female patient who follows with Dr. Gómez as her primary care provider. She has a history of SVT, coronary artery disease with previous stent placement, alterative colitis, hypertension. She also has a history of chronic tobacco dependence and chronic obstructive pulmonary disease and follows in our office for the same. She is oxygen dependent. She is maintained on Symbicort and Ventolin. FEV1 value 74% of predicted. She was last seen in June 2019. She presented here to the emergency room earlier this morning with complaints of abdominal pain. Computed tomography scan of the abdomen revealed colonic diverticulosis without diverticulitis. Previous colon surgery. Large hiatal hernia. Cardiomegaly. There is also infiltrates and atelectasis of the lung bases. We're consulted for the same. White count 20.7. Hemoglobin 13.6. Lymphocytes 0.9. D-dimer 1.25. Sodium 130. Potassium 4.1. Creatinine 0.79. LDH 725. Troponin 0.014. C-reactive protein 48.8. Currently 19 screen pending. Pro-calcitonin pending. Chest x-ray revealed moderate cardiomegaly. Hiatal hernia. Fibrotic changes and mild atelectasis at lung bases. No heart failure. She is seen today on the regular medical floor. She is awake and alert in no acute distress. She has minimal shortness of breath with exertion. She is on a nonrebreather mask at 15 L to maintain O2 saturati ons in the 90s. She's currently afebrile. She presented with a T-max of 100.7. She's had a dry nonproductive cough. She's been initiated on Symbicort, DuoNeb inhalations. Antibiotics in the form of azithromycin. She did receive ceftriaxone 1. There is some edema of the lower extremities. Venous Doppler negative for DVTs bilaterally. The patient is seen today 01/30/2020 in follow-up on the regular medical floor. She is awake and alert in no acute distress. She is breathing easier today compared to yesterday. Abdominal pain slightly improved as well. Chest x-ray reveals cardiomegaly with subsegmental basilar atelectatic changes. Computed tomography scan of the chest revealed no evidence of pulmonary emboli. There is some evidence of pulmonary artery hypertension. Cardiomegaly. Evidence of right heart failure with pulmonary venous hypertension and interstitial edema. There is a para esophageal hernia with partial intrathoracic stomach. She is maintaining good O2 saturations in the 90s on 6 L/m per nasal cannula. Afebrile. Hemodynamically stable. Blood cultures reveal no growth. Sodium 137. Potassium 3.8. Creatinine 0.82. CoVID 19 testing still pending. She remains on ceftriaxone, bronchodilators, oral diuretics. the patient is seen today 01/31/2020 in follow-up on the regular medical floor.she is awake and alert in no acute distress. Maintaining good O2 saturations in the low 90s on 8 L high flow nasal cannula. She's been afebrile. Hemodynamically stable.blood cultures reveal no growth.white count 12.6. Hemoglobin 12.7. Sodium 137. Potassium 3.8. Bicarb 28. Creatinine 0.75. Hill virus testing still pending. She is continued on ceftriaxone and azithromycin along with DuoNeb inhalations, Pulmicort inhalations, oral diuretics. The patient is seen today 02/03/2020 in follow-up on the regular medical floor. She is currently sitting up in a chair at the bedside. Awake and alert in no acute distress. She is still requiring 6 L high flow nasal cannula to maintain O2 saturations in the low 90s high 80s. She is nearly back to her baseline. Blood cultures reveal no growth. She is continued on cefazolin and azithromycin. She is on DuoNeb inhalations, Pulmicort and Perforomist inhalations, prednisone. Oral diuretics. The patient is seen today 02/04/2020 in follow-up on the regular medical floor. She is currently resting comfortably in bed. Awake and alert in no acute distress. Her breathing is back to her baseline. She is down to 5 L nasal cannula. She is continued on bronchodilators, prednisone, antibiotics. Objective - Vital Signs Vital signs: Vital Signs Temp 98.3 F 02/04/20 07:08 Pulse 82 02/04/20 11:13 Resp 16 02/04/20 07:08 BP 169/90 02/04/20 07:08 Pulse Ox 90 L 02/04/20 07:08 Intake & Output 02/03/20 02/04/20 02/04/20 18:59 06:59 18:59 Intake Total 640 100 Balance 640 100 Weight 79 kg Intake: IV 100 100 ceFAZolin 2 gm In Sodium 100 100 Chloride 0.9% 50 ml @ 100 mls/hr IVPB Q8HR [facility] Rx# :[id number] Oral 540 Other: Voiding Method Toilet Bedside Commode # Voids 6 1 # Bowel Movements 1 - Exam GENERAL EXAM: Alert, active, pleasant 79-year-old, on 5 L currently, comfortable in no apparent distress. HEAD: Normocephalic. EYES: Normal reaction of pupils, equal size. NOSE: Clear with pink turbinates. THROAT: No erythema or exudates. NECK: No masses, no JVD. CHEST: No chest wall deformity. LUNGS: Equal air entry with crackles in the bilateral posterior bases, diminished. CVS: S1 and S2 normal with no audible murmur, regular rhythm. ABDOMEN: No hepatosplenomegaly, normal bowel sounds, no guarding or rigidity. SPINE: No scoliosis or deformity SKIN: No rashes CENTRAL NERVOUS SYSTEM: No focal deficits, tone is normal in all 4 extremities. EXTREMITIES: There is 1-2+ peripheral edema. Some redness of the left lower extremity. No clubbing, no cyanosis. Peripheral pulses are intact. - Labs CBC & Chem 7: 01/31/20 06:46 01/31/20 06:46 Labs: Microbiology - Last 24 Hours (Table) 01/29/20 02:41 Blood Culture - Final Blood No Growth after 144 hours Assessment and Plan Assessment: 1 Abdominal discomfort of unclear etiology, computed tomography scan of the abdomen revealed evidence of diverticulosis but no diverticulitis, previous colon surgery, large hiatal hernia 2 Acute exacerbation of chronic obstructive pulmonary disease 3 Acute on chronic hypoxic respiratory failure secondary to above, CoVID 19 screen negative, CT angiogram ruled out pulmonary embolism. There is some suspected pulmonary hypertension. Evidence of right heart failure. Interstitial edema. 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 4 Lower extremity edema, Dopplers negative for DVT 5 Coronary artery disease with previous stent placement 6 Hyperlipidemia 7 Hypertension 8 History of ulcerative colitis 9 History of chronic tobacco dependence Plan: The patient was seen and evaluated by Dr. Gunn Cleared for discharge from the pulmonary standpoint Remains on bronchodilators and steroids Complete a course of antibiotics Follow-up in the office in 1-2 weeks' time She is encouraged to call sooner if any recurrence of symptoms or other questions or concerns I, the cosigning physician, performed a history & physical examination of the patient. Lungs sounds with crackles in the bilateral bases. Maintaining good O2 saturations in the 90s on 5 L nasal cannula. I discussed the assessment and plan of care with my nurse practitioner, Milka Kwong. I attest to the above note as dictated by her.
[2020-02-04 14:57] VITALS: BP 132/76; PULSE 84
--- NOTE | 2020-02-04 17:16 | P.PN ---
Progress Note - Text Progress Note Date: 02/04/20 REASON FOR FOLLOWUP: Left lower extremity cellulitis. INTERVAL HISTORY: Patient remains to be afebrile. Patient is breathing comfortably. The patient denies having any chest pain, no shortness of breath. no cough. No abdominal pain. Bilateral leg Pain and swelling has improved, especially left leg redness PHYSICAL EXAMINATION: Blood pressure 145/80, pulse of 80, temperature 97.8, she is 99% on 2 L nasal cannula. General description is a middle-aged female, lying in bed in no distress. RESPIRATORY SYSTEM: Unlabored breathing, clear to auscultation anteriorly. HEART: S1, S2. Regular rate and rhythm. ABDOMEN: Soft, no tenderness. Left leg dressed up, left leg swelling and redness much improved DIAGNOSTIC IMPRESSION AND PLAN: Patient with left lower extremity cellulitis with diffuse swelling likely Streptococcal disease overall improvement in her cellulitis on IV cefazolin To finish therapy with oral Keflex 500 mg 3 times a day for 7 days Continue with Lenin wrap to the legs and Aquacel silver dressing to the right leg wound Follow-up in the wound care center as needed
== END 2020-02-04 16:23 | disposition home or self-care (01) | DRG 871 ==
LOC: EC 02:19 → 4SSUR 04:23
PROVIDERS: ADMIT Family Medicine; ATTEND Family Medicine
DX: A40.9 Streptococcal sepsis, unspecified (principal); I50.33 Acute on chronic diastolic (congestive) heart failure; J15.9 Unspecified bacterial pneumonia; J96.21 Acute and chronic respiratory failure with hypoxia; L03.116 Cellulitis of left lower limb; L03.115 Cellulitis of right lower limb; J44.0 Chronic obstructive pulmonary disease with (acute) lower respiratory infection; J44.1 Chronic obstructive pulmonary disease with (acute) exacerbation; J98.11 Atelectasis; K51.90 Ulcerative colitis, unspecified, without complications; L97.909 Non-pressure chronic ulcer of unspecified part of unspecified lower leg with unspecified severity; E78.5 Hyperlipidemia, unspecified; F41.9 Anxiety disorder, unspecified; I27.20 Pulmonary hypertension, unspecified; I11.0 Hypertensive heart disease with heart failure; I25.10 Atherosclerotic heart disease of native coronary artery without angina pectoris; I25.2 Old myocardial infarction; I50.82 Biventricular heart failure; Z99.81 Dependence on supplemental oxygen; Z99.89 Dependence on other enabling machines and devices; K44.9 Diaphragmatic hernia without obstruction or gangrene; K57.30 Diverticulosis of large intestine without perforation or abscess without bleeding; Z20.828 Contact with and (suspected) exposure to other viral communicable diseases; Z79.51 Long term (current) use of inhaled steroids; Z79.82 Long term (current) use of aspirin; Z79.899 Other long term (current) drug therapy; Z82.49 Family history of ischemic heart disease and other diseases of the circulatory system; Z87.891 Personal history of nicotine dependence; Z95.5 Presence of coronary angioplasty implant and graft; R79.1 Abnormal coagulation profile
CPT/HCPCS: 36415; 71045; 71046; 71275; 74177; 80048; 80053; 81001; 82150; 82728; 83605; 83615; 83690; 83735; 84145; 84484; 85025; 85027; 85379; 85610; 85730; 86140; 87040; 87635; 93005; 93970; 94640; 96361; 96365; 96374; 99285

== ENCOUNTER 2021-02-05 17:38 | Inpatient (IN) | payer MEDICARE, BC ==
[2021-02-05 18:29] LABS: Anisocytosis Slight; Basophils % (A) 0 %; Eosinophils # (A) 0.1 k/uL (0-0.7); Eosinophils % (A) 1 %; HCT 40.5 % (34.0-46.0); HGB 12.7 gm/dL (11.4-16.0); Hypochromasia Moderate; Lymphocytes # (A) 1.4 k/uL (1.0-4.8); Lymphocytes % (A) 12 %; MCH 28.4 pg (25.0-35.0); MCHC 31.4 g/dL (31.0-37.0); MCV 90.3 fL (80.0-100.0); Mean Platelet Volume 7.7; Monocytes # (A) 0.7 k/uL (0-1.0); Monocytes % (A) 6 %; Neutrophils # (A) 9.4 k/uL (1.3-7.7); Neutrophils % (A) 80 %; Platelet Count 275 k/uL (150-450); RBC 4.48 m/uL (3.80-5.40); RDW 16.5 % (11.5-15.5); WBC 11.8 k/uL (3.8-10.6)
[2021-02-05 18:37] LABS: INR 1.1 (<1.2); Partial Thromboplastin Time 24.3 sec (22.0-30.0); Prothrombin Time 11.4 sec (9.0-12.0)
[2021-02-05 18:38] LABS: Albumin 3.6 g/dL (3.5-5.0); Calcium 9.2 mg/dL (8.4-10.2); Total Bilirubin 0.9 mg/dL (0.2-1.3); Total Protein 6.7 g/dL (6.3-8.2)
--- NOTE | 2021-02-05 19:40 | ED ---
Weakness HPI - General Chief complaint: Weakness Stated complaint: AMERICO, water retention-sent by PCP Time Seen by Provider: 02/05/21 19:24 Source: patient Mode of arrival: ambulatory Limitations: no limitations - History of Present Illness Initial comments: This patient is an 80-year-old woman who is sent here from her physician's office for probable admission for congestive heart failure. The patient states she had gone to see her doctor today at the advice of a home healthcare nurse who saw her and felt there was probably worsening heart failure. The patient herself states she has been feeling less energy than usual and some difficulty with walking. She complains of bilateral lower extremity swelling. The swelling has been developing over some time. The patient is not having fever or chills. No change in cough. No chest pain. There is some dyspnea with exertion. The patient had gone to see her physician, had an x-ray at the clinic, and was told that she does have congestive heart failure. MD Complaint: generalized weakness, lack of energy -: days(s) Location: generalized Severity scale (1-10): 0 Improves with: none Worsens with: movement Context: history of similar Associated Symptoms: other (Bilateral leg swelling) - Related Data Home Medications Medication Instructions Recorded Confirmed Isosorbide Mononitrate ER [Imdur] 30 mg PO BID 04/09/17 02/05/21 Budesonide-Formot 160-4.5 Mcg 2 puff INHALATION RT-BID 04/22/17 02/05/21 [Symbicort 160-4.5 Mcg Inhaler] Pravastatin Sodium [Pravachol] 20 mg PO DAILY 04/22/17 02/05/21 Budesonide [Budesonide EC] 3 mg PO AC-TID 01/29/20 02/05/21 Co Q-10(Unknown Dose) 1 tab PO DAILY 01/29/20 02/05/21 Furosemide [Lasix] 40 mg PO BID@0700,1300 01/29/20 02/05/21 Metoprolol Tartrate [Lopressor] 25 mg PO BID 01/29/20 02/05/21 Vitamin B-12(Unknown Dose) 1 tab PO DAILY 01/29/20 02/05/21 Albuterol Nebulized [Ventolin 2.5 mg INHALATION RT-TID 02/05/21 02/05/21 Nebulized] Ergocalciferol [Vitamin D2 (1250 1,250 mcg PO MO 02/05/21 02/05/21 Mcg = 98592 Iu)] FLUoxetine HCL [PROzac] 40 mg PO HS 02/05/21 02/05/21 FLUoxetine HCL [PROzac] 40 mg PO HS PRN 02/05/21 02/05/21 Losartan [Cozaar] 25 mg PO DAILY 02/05/21 02/05/21 Multivit with Calcium,Iron,Min 1 tab PO DAILY 02/05/21 02/05/21 [Women's Multivitamin] Omeprazole Magnesium [PriLOSEC OTC] 20 mg PO DAILY 02/05/21 02/05/21 SILVER sulfADIAZINE Cream 1 applic TOPICAL DAILY 02/05/21 02/05/21 [Silvadene 1% Cream] Allergies Allergy/AdvReac Type Severity Reaction Status Date / Time No Known Allergies Allergy Verified 02/05/21 17:49 Review of Systems ROS Statement: Those systems with pertinent positive or pertinent negative responses have been documented in the HPI. ROS Other: All systems not noted in ROS Statement are negative. Constitutional: Reports: weakness. Denies: fever, chills Respiratory: Denies: cough Cardiovascular: Reports: dyspnea on exertion, orthopnea, edema. Denies: chest pain, palpitations, syncope Gastrointestinal: Denies: abdominal pain, vomiting, diarrhea Genitourinary: Denies: dysuria, hematuria Musculoskeletal: Denies: back pain Skin: Reports: change in color. Denies: rash Neurological: Denies: headache, weakness, numbness Past Medical History Past Medical History: COPD, Hypertension, Myocardial Infarction ([place]), Supraventricular Tachycardia (SVT) Additional Past Medical History / Comment(s): Ulcerative Colitis Last Myocardial Infarction Date:: 2006 History of Any Multi-Drug Resistant Organisms: None Reported Past Surgical History: Heart Catheterization, Heart Catheterization With Stent Additional Past Surgical History / Comment(s): Eyebrow and lid lift, cataract removal. RCA Stent placed "10 years ago in [place].". Recent heart cath 04/11/2017 Additional Past Anesthesia/Blood Transfusion Reaction / Comment(s): Patient stated that she was shaky, had a bad headache after anesthetic Date of Last Stent Placement:: 2006 Past Psychological History: Anxiety Smoking Status: Never smoker Past Alcohol Use History: None Reported Past Drug Use History: None Reported - Past Family History Father Family Medical History: Myocardial Infarction ([place]) Daughter(s) Family Medical History: Cancer General Exam Limitations: no limitations General appearance: alert, in no apparent distress Head exam: Present: atraumatic, normocephalic Eye exam: Present: normal appearance. Absent: scleral icterus, conjunctival injection Neck exam: Present: normal inspection Respiratory exam: Present: rales (Bilateral lower lung antunez). Absent: wheezes, rhonchi, stridor Cardiovascular Exam: Present: regular rate, irregular rhythm, systolic murmur. Absent: diastolic murmur, rubs, gallop GI/Abdominal exam: Present: soft. Absent: distended, tenderness, guarding, rebound, rigid, mass Extremities exam: Present: pedal edema (Bilateral edema which is appear chronic. The right leg has a wrapping that was applied this morning for stasis ulcers. Left leg has some erythema but no warmth.). Absent: tenderness, calf tenderness Back exam: Absent: CVA tenderness (R), CVA tenderness (L) Neurological exam: Present: alert Skin exam: Present: warm, dry, intact, erythema (See above). Absent: rash Course Vital Signs 02/05/21 02/05/21 17:46 19:48 Temperature 98.1 F Pulse Rate 103 H Respiratory 20 18 Rate Blood Pressure 144/93 O2 Sat by Pulse 90 L Oximetry EKG Findings - EKG Comments: EKG Findings:: Underlying rhythm appears to be sinus with PVCs and some PACs as well. There appears to be old anteroseptal infarct. - EKG Results: EKG: interpreted by ERMD, sinus rhythm, normal axis - Blocks, [place], Hypertrophy, ST Abn: AV and intraventricular conduction: right bundle branch block (fixed/int ermittent, complete/incomplete) (Incomplete right bundle branch block) Medical Decision Making - Lab Data Result diagrams: 02/05/21 18:21 02/05/21 18:21 Lab Results 02/05/21 02/05/21 02/05/21 Range/Units 18:21 18:21 18:21 WBC 11.8 H (3.8-10.6) k/uL RBC 4.48 (3.80-5.40) m/uL Hgb 12.7 (11.4-16.0) gm/dL Hct 40.5 (34.0-46.0) % MCV 90.3 (80.0-100.0) fL MCH 28.4 (25.0-35.0) pg MCHC 31.4 (31.0-37.0) g/dL RDW 16.5 H (11.5-15.5) % Plt Count 275 (150-450) k/uL MPV 7.7 Neutrophils % 80 % Lymphocytes % 12 % Monocytes % 6 % Eosinophils % 1 % Basophils % 0 % Neutrophils # 9.4 H (1.3-7.7) k/uL Lymphocytes # 1.4 (1.0-4.8) k/uL Monocytes # 0.7 (0-1.0) k/uL Eosinophils # 0.1 (0-0.7) k/uL Basophils # 0.0 (0-0.2) k/uL Hypochromasia Moderate Anisocytosis Slight PT 11.4 (9.0-12.0) sec INR 1.1 (<1.2) APTT 24.3 (22.0-30.0) sec Sodium 140 (137-145) mmol/L Potassium 4.0 (3.5-5.1) mmol/L Chloride 101 (98-107) mmol/L Carbon Dioxide 34 H (22-30) mmol/L Anion Gap 5 mmol/L BUN 25 H (7-17) mg/dL Creatinine 1.17 H (0.52-1.04) mg/dL Est GFR (CKD-EPI)AfAm 50 (>60 ml/min/1.73 sqM) Est GFR (CKD-EPI)NonAf 44 (>60 ml/min/1.73 sqM) Glucose 96 (74-99) mg/dL Calcium 9.2 (8.4-10.2) mg/dL Total Bilirubin 0.9 (0.2-1.3) mg/dL AST 38 H (14-36) U/L ALT 17 (4-34) U/L Alkaline Phosphatase 102 (38-126) U/L Troponin I (0.000-0.034) ng/mL NT-Pro-B Natriuret Pep pg/mL Total Protein 6.7 (6.3-8.2) g/dL Albumin 3.6 (3.5-5.0) g/dL Coronavirus (PCR) (Not Detectd) 06/01/21 06/01/21 06/01/21 Range/Units 18:21 18:21 19:56 WBC (3.8-10.6) k/uL RBC (3.80-5.40) m/uL Hgb (11.4-16.0) gm/dL Hct (34.0-46.0) % MCV (80.0-100.0) fL MCH (25.0-35.0) pg MCHC (31.0-37.0) g/dL RDW (11.5-15.5) % Plt Count (150-450) k/uL MPV Neutrophils % % Lymphocytes % % Monocytes % % Eosinophils % % Basophils % % Neutrophils # (1.3-7.7) k/uL Lymphocytes # (1.0-4.8) k/uL Monocytes # (0-1.0) k/uL Eosinophils # (0-0.7) k/uL Basophils # (0-0.2) k/uL Hypochromasia Anisocytosis PT (9.0-12.0) sec INR (<1.2) APTT (22.0-30.0) sec Sodium (137-145) mmol/L Potassium (3.5-5.1) mmol/L Chloride (98-107) mmol/L Carbon Dioxide (22-30) mmol/L Anion Gap mmol/L BUN (7-17) mg/dL Creatinine (0.52-1.04) mg/dL Est GFR (CKD-EPI)AfAm (>60 ml/min/1.73 sqM) Est GFR (CKD-EPI)NonAf (>60 ml/min/1.73 sqM) Glucose (74-99) mg/dL Calcium (8.4-10.2) mg/dL Total Bilirubin (0.2-1.3) mg/dL AST (14-36) U/L ALT (4-34) U/L Alkaline Phosphatase (38-126) U/L Troponin I <0.012 (0.000-0.034) ng/mL NT-Pro-B Natriuret Pep 7970 pg/mL Total Protein (6.3-8.2) g/dL Albumin (3.5-5.0) g/dL Coronavirus (PCR) Not Detected (Not Detectd) Disposition Clinical Impression: CHF exacerbation Disposition: ADMITTED IP TO THIS HOSP Condition: Fair Is patient prescribed a controlled substance at d/c from ED?: No Referrals: Gabriel White MD [Primary Care Provider] - 1-2 days
--- NOTE | 2021-02-05 20:50 | XR ---
EXAMINATION TYPE: XR chest 2V DATE OF EXAM: 02/05/2021 COMPARISON: 02/02/2020 INDICATION: Dyspnea difficulty in breathing TECHNIQUE: Frontal and lateral views of the chest are obtained. FINDINGS: The heart size is enlarged. The pulmonary vasculature is prominent. Diffuse increased lung markings are present.. IMPRESSION: 1. Clinical correlation for congestive heart failure
[2021-02-05] MEDS: FLUoxetine HCL 20 MG CAP PO SCH (21:50)
[2021-02-05] MEDS: METOPROLOL TARTRATE 25 MG TAB PO SCH (21:50)
[2021-02-05] MEDS: HEPARIN SODIUM,PORCINE/PF 5,000 UNIT/0.5 ML SYRINGE SQ SCH (21:51)
[2021-02-05] MEDS: ISOSORBIDE MONONITRATE ER 30 MG TAB.ER.24H PO SCH (21:51)
[2021-02-06] MEDS ORDERED: FUROSEMIDE 40 MG TAB PO SCH (07:00)
[2021-02-06] MEDS: PRAVASTATIN SODIUM 20 MG TAB PO SCH (07:16)
[2021-02-06] MEDS: PANTOPRAZOLE 40 MG TABLET PO SCH (07:16)
[2021-02-06] MEDS: METOPROLOL TARTRATE 25 MG TAB PO SCH ×2 (07:17→20:56)
[2021-02-06] MEDS: HEPARIN SODIUM,PORCINE/PF 5,000 UNIT/0.5 ML SYRINGE SQ SCH ×2 (07:17→20:56)
[2021-02-06] MEDS: LOSARTAN 25 MG TAB PO SCH (07:17)
[2021-02-06] MEDS: FLUoxetine HCL 20 MG CAP PO SCH (07:17)
[2021-02-06] MEDS: ISOSORBIDE MONONITRATE ER 30 MG TAB.ER.24H PO SCH ×2 (07:17→20:56)
[2021-02-06] MEDS: SYMBICORT 160-4.5 MCG INHALER INHALATION SCH ×2 (07:24→19:59)
[2021-02-06] MEDS: ALBUTEROL NEBULIZED 2.5 MG/3 ML INHALATION SCH ×3 (07:24→19:59)
[2021-02-06] MEDS ORDERED: FUROSEMIDE 10 MG/ML 4 ML VIAL IV SCH (09:00)
[2021-02-06] MEDS ORDERED: FUROSEMIDE 10 MG/ML 2 ML VIAL IV ONE (09:30)
[2021-02-06 11:38] VITALS: BMI 25.0
--- NOTE | 2021-02-06 14:07 | P.CRDCN ---
History of Present Illness History of present illness: HISTORY OF PRESENTING ILLNESS This is a pleasant 80-year-old female past medical history significant for coronary artery disease status post PCI of the RCA, SVT status post ablatio n, hypertension, dyslipidemia, aortic and tricuspid regurgitation, pulmonary hypertension, COPD and chronic diastolic heart failure. She follows in the office with Dr. Lozano. We have been asked to see in consultation for heart failure. Presented to the hospital with a 3 day history of worsening exertional shortness of breath. She denies associated chest pain, dizziness or palpitations. She has had no recent medication changes and states there has not been any real significant changes in her diet. Chest x-ray on admission revealed congestive heart failure. She was initiated on IV diuretics. There is no documentation of urine output. EKG on arrival revealed sinus mechanism with PVCs and poor R-wave progression. Laboratory data reviewed, WBC 11.8, hemoglobin 12.7, platelets 275, sodium 140, potassium 4.0, creatinine 1.17, troponin negative 3, NT proBNP 7970, pro-calcitonin 0.15. Current daily cardiac medications include Lasix 40 mg by mouth twice a day, Imdur 30 mg twice a day, losartan 25 mg daily, Lopressor 25 mg twice a day and pravastatin 20 mg daily. Most recent echocardiogram obtained 11/27/2020 revealed preserved LV systolic function with normal ejection fraction, severe tricuspid regurgitation, moderate aortic regurgitation and a dilated right ventricle. REVIEW OF SYSTEMS At the time of my exam: CONSTITUTIONAL: Denies fever or chills. CARDIOVASCULAR: Complains of shortness of breath. Denies chest pain, orthopnea, PND or palpitations. RESPIRATORY: Denies cough. GASTROINTESTINAL: Denies abdominal pain, diarrhea, constipation, nausea or vomiting. MUSCULOSKELETAL: Denies myalgias. NEUROLOGIC: Denies numbness, tingling, headacbe or weakness. ENDOCRINE: Denies fatigue, weight change, polydipsia or polyurina. GENITOURINARY: Denies burning, hematuria or urgency with micturation. HEMATOLOGIC: Denies history of anemia or bleeding. PHYSICAL EXAMINATION Blood pressure 117/60 heart rate 52 afebrile and maintaining oxygen saturation on nasal cannula. CONSTITUTIONAL: No apparent distress. HEENT: Head is normocephalic. Pupils are equal, round. Sclerae anicteric. Mucous membranes of the mouth are moist. No JVD. No carotid bruit. CHEST EXAMINATION: Bibasilar rales. No rhonchi or wheezes. No chest wall tenderness is noted on palpation or with deep breathing. HEART EXAMINATION: Regular rate and rhythm. S1, S2 heard. Diastolic murmur at the base and left sternal border, no gallops or rub. ABDOMEN: Soft, nontender. Positive bowel sounds. EXTREMITIES: 2+ peripheral pulses, 1+ bilateral pitting lower extremity edema and no calf tenderness. NEUROLOGIC EXAMINATION: Patient is awake, alert and oriented x3. ASSESSMENT Acute on chronic diastolic heart failure Leukocytosis Acute kidney injury Coronary artery disease status post PTCA RCA History of SVT status post ablation Hypertension Dyslipidemia Valvular heart disease Pulmonary hypertension COPD PLAN Increase IV diuretics to 60 mg twice a day. Document accurate intake and output along with daily weights. Follow renal function and electrolytes in the morning. Further recommendations to follow based upon clinical course. Thank you kindly for this consultation. Nurse Practitioner note has been reviewed, I agree with a documented findings and plan of care. Patient was seen and examined. Past Medical History Past Medical History: COPD, Hypertension, Myocardial Infarction ([place]), Supraventricular Tachycardia (SVT) Additional Past Medical History / Comment(s): Ulcerative Colitis Last Myocardial Infarction Date:: 2006 History of Any Multi-Drug Resistant Organisms: None Reported Past Surgical History: Heart Catheterization, Heart Catheterization With Stent Additional Past Surgical History / Comment(s): Eyebrow and lid lift, cataract removal. RCA Stent placed "10 years ago in [place].". Recent heart cath 04/11/2017 Additional Past Anesthesia/Blood Transfusion Reaction / Comment(s): Patient st ated that she was shaky, had a bad headache after anesthetic Date of Last Stent Placement:: 2006 Past Psychological History: Anxiety Smoking Status: Former smoker Past Alcohol Use History: None Reported Past Drug Use History: None Reported - Past Family History Father Family Medical History: Myocardial Infarction ([place]) Daughter(s) Family Medical History: Cancer Additional Family Medical History / Comment(s): States she has two daughters with breast cancer and 1 with pancreatic cancer Medications and Allergies Home Medications Medication Instructions Recorded Confirmed Type Isosorbide Mononitrate ER [Imdur] 30 mg PO BID 04/09/17 02/05/21 History Budesonide-Formot 160-4.5 Mcg 2 puff INHALATION RT-BID 04/22/17 02/05/21 History [Symbicort 160-4.5 Mcg Inhaler] Pravastatin Sodium [Pravachol] 20 mg PO DAILY 04/22/17 02/05/21 History Budesonide [Budesonide EC] 3 mg PO AC-TID 01/29/20 02/05/21 History Co Q-10(Unknown Dose) 1 tab PO DAILY 01/29/20 02/05/21 History Furosemide [Lasix] 40 mg PO BID@0700,1300 01/29/20 02/05/21 History Metoprolol Tartrate [Lopressor] 25 mg PO BID 01/29/20 02/05/21 History Vitamin B-12(Unknown Dose) 1 tab PO DAILY 01/29/20 02/05/21 History Albuterol Nebulized [Ventolin 2.5 mg INHALATION RT-TID 02/05/21 02/05/21 History Nebulized] Ergocalciferol [Vitamin D2 (1250 1,250 mcg PO MO 02/05/21 02/05/21 History Mcg = 75339 Iu)] FLUoxetine HCL [PROzac] 40 mg PO HS 02/05/21 02/05/21 History FLUoxetine HCL [PROzac] 40 mg PO HS PRN 02/05/21 02/05/21 History Losartan [Cozaar] 25 mg PO DAILY 02/05/21 02/05/21 History Multivit with Calcium,Iron,Min 1 tab PO DAILY 02/05/21 02/05/21 History [Women's Multivitamin] Omeprazole Magnesium [PriLOSEC OTC] 20 mg PO DAILY 02/05/21 02/05/21 History SILVER sulfADIAZINE Cream 1 applic TOPICAL DAILY 02/05/21 02/05/21 History [Silvadene 1% Cream] Allergies Allergy/AdvReac Type Severity Reaction Status Date / Time No Known Allergies Allergy Verified 02/05/21 17:49 Physical Exam Vitals: Vital Signs Temp Pulse Pulse Resp BP BP Pulse Ox 02/06/21 12:49 98.0 F 52 L 19 117/60 91 L 02/06/21 11:23 80 02/06/21 11:15 84 02/06/21 07:41 86 02/06/21 07:28 80 02/06/21 04:33 98.4 F 79 16 121/68 95 02/06/21 00:10 98.0 F 72 18 149/85 90 L 02/05/21 23:32 98.2 F 84 18 122/92 92 L 02/05/21 21:47 55 L 18 133/69 94 L 02/05/21 19:48 18 02/05/21 17:46 98.1 F 103 H 20 144/93 90 L Intake and Output 02/05/21 02/06/21 02/06/21 22:59 06:59 14:59 Intake Total 200 Balance 200 Intake: Oral 200 Other: Voiding Method Toilet Toilet Bedside Commode Weight 70.307 kg 77.2 kg Results 02/05/21 18:21 02/05/21 18:21 Cardiac Enzymes 02/05/21 02/05/21 02/05/21 Range/Units 18:21 18:21 21:53 AST 38 H (14-36) U/L Troponin I <0.012 <0.012 (0.000-0.034) ng/mL 02/06/21 Range/Units 01:39 AST (14-36) U/L Troponin I 0.013 (0.000-0.034) ng/mL Coagulation 02/05/21 Range/Units 18:21 PT 11.4 (9.0-12.0) sec APTT 24.3 (22.0-30.0) sec CBC 02/05/21 Range/Units 18:21 WBC 11.8 H (3.8-10.6) k/uL RBC 4.48 (3.80-5.40) m/uL Hgb 12.7 (11.4-16.0) gm/dL Hct 40.5 (34.0-46.0) % Plt Count 275 (150-450) k/uL Comprehensive Metabolic Panel 02/05/21 Range/Units 18:21 Sodium 140 (137-145) mmol/L Potassium 4.0 (3.5-5.1) mmol/L Chloride 101 (98-107) mmol/L Carbon Dioxide 34 H (22-30) mmol/L BUN 25 H (7-17) mg/dL Creatinine 1.17 H (0.52-1.04) mg/dL Glucose 96 (74-99) mg/dL Calcium 9.2 (8.4-10.2) mg/dL AST 38 H (14-36) U/L ALT 17 (4-34) U/L Alkaline Phosphatase 102 (38-126) U/L Total Protein 6.7 (6.3-8.2) g/dL Albumin 3.6 (3.5-5.0) g/dL Current Medications Generic Name Dose Route Start Last Admin Trade Name Freq PRN Reason Stop Dose Admin Albuterol Sulfate 2.5 mg 02/06/21 08:00 02/06/21 11:13 Albuterol Nebulized 2.5 Mg/3 Ml INHALATION 2.5 mg RT-TID KANNAN Administration Budesonide/Formoterol Fumarate 2 puff 02/06/21 08:00 02/06/21 07:24 Symbicort 160-4.5 Mcg Inhaler INHALATION 2 puff RT-BID KANNAN Administration Fluoxetine HCl 40 mg 02/05/21 21:00 02/06/21 07:17 Fluoxetine Hcl 20 Mg Cap PO 40 mg HS KANNAN Administration Furosemide 60 mg 02/06/21 21:00 Furosemide 10 Mg/Ml 10 Ml Vial IV Q12HR KANNAN Heparin Sodium (Porcine) 5,000 unit 02/05/21 21:30 02/06/21 07:17 Heparin Sodium,Porcine/Pf 5,000 Unit/0.5 Ml Syringe SQ 5,000 unit Q12HR KANNAN Administration Isosorbide Mononitrate 30 mg 02/05/21 21:00 02/06/21 07:17 Isosorbide Mononitrate Er 30 Mg Tab.Er.24h PO 30 mg BID KANNAN Administration Losartan Potassium 25 mg 02/06/21 09:00 02/06/21 07:17 Losartan 25 Mg Tab PO 25 mg DAILY KANNAN Administration Metoprolol Tartrate 25 mg 02/05/21 21:00 02/06/21 07:17 Metoprolol Tartrate 25 Mg Tab PO 25 mg BID KANNAN Administration Non-Formulary Medication 3 mg 02/06/21 07:30 Budesonide [Budesonide Ec] PO AC-TID KANNAN Pantoprazole Sodium 40 mg 02/06/21 07:30 02/06/21 07:16 Pantoprazole 40 Mg Tablet PO 40 mg AC-BRKFST KANNAN Administration Pravastatin Sodium 20 mg 02/06/21 09:00 02/06/21 07:16 Pravastatin Sodium 20 Mg Tab PO 20 mg DAILY KANNAN Administration Sodium Chloride 10 ml 02/05/21 21:00 02/06/21 10:08 Sodium Chloride 0.9% Flush 10 Ml Syringe IV Not Given BID KANNAN Intake and Output 02/05/21 02/06/21 02/06/21 22:59 06:59 14:59 Intake Total 200 Balance 200 Intake: Oral 200 Other: Voiding Method Toilet Toilet Bedside Commode Weight 70.307 kg 77.2 kg Patient Weight 02/07/21 06:59 Weight 77.2 kg 02/05/21 18:21 02/05/21 18:21
[2021-02-06] MEDS: BUDESONIDE 3 MG PO SCH (20:20)
[2021-02-06] MEDS: FUROSEMIDE 10 MG/ML 10 ML VIAL IV SCH (20:56)
--- NOTE | 2021-02-06 23:02 | P.HPIM ---
History of Present Illness H&P Date: 02/06/21 Chief Complaint: shortness of breath Adri Dominguez is an 80 yo F with PMH of CAD s/p stenting, COPD, chronic diastolic CHF, lymphedema who presented to the ED with worsening shortness of breath over the past few days. She notes a 15 lb weight gain in the past month or so and a few weeks ago was treated outpatient for recurrent lower extremity cellulitis. She has felt short of breath and that her legs have been heavier since then. She notes that over the past few days she has had to turn oxygen up to 5 LPM. On presentation labs significant for WBC 11k, Cr 1.17, BNP 7000, trop negative. Procalcitonin 0.15. Review of Systems All systems: negative Constitutional: Reports malaise, Reports weakness, Reports weight gain, Denies chills, Denies fever Eyes: denies blurred vision, denies pain Ears, nose, mouth and throat: Denies headache, Denies sore throat Cardiovascular: Reports dyspnea on exertion, Reports edema, Reports shortness of breath, Denies chest pain Respiratory: Denies cough Gastrointestinal: Denies abdominal pain, Denies diarrhea, Denies nausea, Denies vomiting Genitourinary: Denies dysuria, Denies hematuria Musculoskeletal: Denies myalgias Integumentary: Denies pruritus, Denies rash Neurological: Denies numbness, Denies weakness Psychiatric: Denies anxiety, Denies depression Endocrine: Denies fatigue, Denies weight change Past Medical History Past Medical History: COPD, Hypertension, Myocardial Infarction ([place]), Supraventricular Tachycardia (SVT) Additional Past Medical History / Comment(s): Ulcerative Colitis Last Myocardial Infarction Date:: 2006 History of Any Multi-Drug Resistant Organisms: None Reported Past Surgical History: Heart Catheterization, Heart Catheterization With Stent Additional Past Surgical History / Comment(s): Eyebrow and lid lift, cataract removal. RCA Stent placed "10 years ago in [place].". Recent heart cath 04/11/2017 Additional Past Anesthesia/Blood Transfusion Reaction / Comment(s): Patient stated that she was shaky, had a bad headache after anesthetic Date of Last Stent Placement:: 2006 Past Psychological History: Anxiety Smoking Status: Former smoker Past Alcohol Use History: None Reported Past Drug Use History: None Reported - Past Family History Father Family Medical History: Myocardial Infarction ([place]) Daughter(s) Family Medical History: Cancer Additional Family Medical History / Comment(s): States she has two daughters with breast cancer and 1 with pancreatic cancer Medications and Allergies Home Medications Medication Instructions Recorded Confirmed Type Isosorbide Mononitrate ER [Imdur] 30 mg PO BID 04/09/17 02/05/21 History Budesonide-Formot 160-4.5 Mcg 2 puff INHALATION RT-BID 04/22/17 02/05/21 History [Symbicort 160-4.5 Mcg Inhaler] Pravastatin Sodium [Pravachol] 20 mg PO DAILY 04/22/17 02/05/21 History Budesonide [Budesonide EC] 3 mg PO AC-TID 01/29/20 02/05/21 History Co Q-10(Unknown Dose) 1 tab PO DAILY 01/29/20 02/05/21 History Furosemide [Lasix] 40 mg PO BID@0700,1300 01/29/20 02/05/21 History Metoprolol Tartrate [Lopressor] 25 mg PO BID 01/29/20 02/05/21 History Vitamin B-12(Unknown Dose) 1 tab PO DAILY 01/29/20 02/05/21 History Albuterol Nebulized [Ventolin 2.5 mg INHALATION RT-TID 02/05/21 02/05/21 History Nebulized] Ergocalciferol [Vitamin D2 (1250 1,250 mcg PO MO 02/05/21 02/05/21 History Mcg = 60634 Iu)] FLUoxetine HCL [PROzac] 40 mg PO HS 02/05/21 02/05/21 History FLUoxetine HCL [PROzac] 40 mg PO HS PRN 02/05/21 02/05/21 History Losartan [Cozaar] 25 mg PO DAILY 02/05/21 02/05/21 History Multivit with Calcium,Iron,Min 1 tab PO DAILY 02/05/21 02/05/21 History [Women's Multivitamin] Omeprazole Magnesium [PriLOSEC OTC] 20 mg PO DAILY 02/05/21 02/05/21 History SILVER sulfADIAZINE Cream 1 applic TOPICAL DAILY 02/05/21 02/05/21 History [Silvadene 1% Cream] Allergies Allergy/AdvReac Type Severity Reaction Status Date / Time No Known Allergies Allergy Verified 02/05/21 17:49 Physical Exam Vitals: Vital Signs Temp Pulse Pulse Resp BP BP Pulse Ox 02/06/21 20:08 60 02/06/21 19:59 60 02/06/21 19:00 98.3 F 101 H 20 114/66 02/06/21 12:49 98.0 F 52 L 19 117/60 91 L 02/06/21 11:23 80 02/06/21 11:15 84 02/06/21 07:41 86 02/06/21 07:28 80 02/06/21 04:33 98.4 F 79 16 121/68 95 02/06/21 00:10 98.0 F 72 18 149/85 90 L 02/05/21 23:32 98.2 F 84 18 122/92 92 L Intake and Output 02/06/21 02/06/21 02/06/21 06:59 14:59 22:59 Intake Total 200 Balance 200 Intake: Oral 200 Other: Voiding Method Toilet Toilet Bedside Commode Weight 77.2 kg General: well nourished, well developed, NAD. Vitals reviewed Eyes: PERRL, EOMI, conjunctiva normal HENT: normocephalic, mucus membranes moist Neck: supple, no JVD Lungs: normal respiratory effort, no wheeze. Rales at bases CV: Regular rate and rhythm, systolic murmur. 2+ edema BLE Abdomen: soft, nondistended, no organomegaly Lymph: no cervical or axillary LAD Skin: warm and dry. Neuro: A&Ox3, normal mood and affect Results CBC & Chem 7: 02/05/21 18:21 02/05/21 18:21 Labs: Abnormal Lab Results - Last 24 Hours (Table) 02/05/21 Range/Units 19:56 Procalcitonin 0.15 H (0.02-0.09) ng/mL Microbiology - Last 24 Hours (Table) 02/05/21 19:56 Blood Culture - Preliminary Blood No Growth after 24 hours 02/05/21 19:56 Blood Culture - Preliminary Blood No Growth after 24 hours Thrombosis Risk Factor Assmnt - Choose All That Apply Any of the Below Risk Factors Present?: Yes Each Factor Represents 1 point: Abnormal pulmonary function (COPD) Other Risk Factors: Yes Each Risk Factor Represents 3 Points: Age 75 years or older Other congenital or acquired thrombophilia - If yes, enter type in comment: No Thrombosis Risk Factor Assessment Total Risk Factor Score: 4 Thrombosis Risk Factor Assessment Level: Moderate Risk Assessment and Plan Plan: 1. Acute on chronic diastolic CHF. Consult to Cardiology. Start IV lasix. Measure I/Os, daily weights. Follow renal function 2. CAD. Continue metoprolol, losartan, pravastatin 3. Major depression. Continue prozac
[2021-02-07] MEDS: ALBUTEROL NEBULIZED 2.5 MG/3 ML INHALATION SCH ×3 (08:05→19:53)
[2021-02-07] MEDS: SYMBICORT 160-4.5 MCG INHALER INHALATION SCH ×2 (08:05→19:53)
[2021-02-07 08:26] LABS: Potassium 4.1 mmol/L (3.5-5.1)
[2021-02-07 08:28] LABS: African American GFR (CKD) 46 (>60 ml/min/1.73 sqM); Anion Gap 3 mmol/L; Blood Urea Nitrogen 22 mg/dL (7-17); Calcium 8.8 mg/dL (8.4-10.2); Carbon Dioxide 37 mmol/L (22-30); Chloride 100 mmol/L (98-107); Glucose 80 mg/dL (74-99); Non-African American GFR(CKD) 40 (>60 ml/min/1.73 sqM); Sodium 140 mmol/L (137-145)
[2021-02-07] MEDS: HEPARIN SODIUM,PORCINE/PF 5,000 UNIT/0.5 ML SYRINGE SQ SCH ×2 (08:38→20:47)
[2021-02-07] MEDS: FUROSEMIDE 10 MG/ML 10 ML VIAL IV SCH ×2 (08:39→20:46)
[2021-02-07] MEDS: METOPROLOL TARTRATE 25 MG TAB PO SCH ×2 (08:39→20:46)
[2021-02-07] MEDS: LOSARTAN 25 MG TAB PO SCH (08:39)
[2021-02-07] MEDS: PRAVASTATIN SODIUM 20 MG TAB PO SCH (08:39)
[2021-02-07] MEDS: PANTOPRAZOLE 40 MG TABLET PO SCH (08:39)
[2021-02-07] MEDS: ISOSORBIDE MONONITRATE ER 30 MG TAB.ER.24H PO SCH ×2 (08:39→20:46)
--- NOTE | 2021-02-07 12:01 | P.PN ---
Subjective HISTORY OF PRESENTING ILLNESS This is a pleasant 80-year-old female past medical history significant for coronary artery disease status post PCI of the RCA, SVT status post ablation, hypertension, dyslipidemia, aortic and tricuspid regurgitation, pulmonary hypertension, COPD and chronic diastolic heart failure. She follows in the office with Dr. Lozano. We have been asked to see in consultation for heart failure. Presented to the hospital with a 3 day history of worsening exertional shortness of breath. She denies associated chest pain, dizziness or palpitations. She has had no recent medication changes and states there has not been any real significant changes in her diet. Chest x-ray on admission revealed congestive heart failure. She was initiated on IV diuretics. There is no documentation of urine output. EKG on arrival revealed sinus mechanism with PVCs and poor R-wave progression. Laboratory data reviewed, WBC 11.8, hemoglobin 12.7, platelets 275, sodium 140, potassium 4.0, creatinine 1.17, troponin negative 3, NT proBNP 7970, pro-calcitonin 0.15. Current daily cardiac medications include Lasix 40 mg by mouth twice a day, Imdur 30 mg twice a day, losartan 25 mg daily, Lopressor 25 mg twice a day and pravastatin 20 mg daily. Most recent echocardiogram obtained 11/27/2020 revealed preserved LV systolic function with normal ejection fraction, severe tricuspid regurgitation, moderate aortic regurgitation and a dilated right ventricle. 02/07/2021 Patient seen and examined sitting up eating breakfast in no acute distress. She states overall her symptoms have greatly improved, however she still has some orthopnea. She has been up urinating frequently however there is no documentation of urine output. Blood pressure 125/78 heart rate 66 afebrile maintaining oxygen saturation on nasal cannula. Laboratory data reviewed, sodium 140, potassium 4.1, creatinine 1.26. PHYSICAL EXAMINATION CONSTITUTIONAL: No apparent distress. HEENT: Head is normocephalic. Pupils are equal, round. Sclerae anicteric. Mucous membranes of the mouth are moist. No JVD. No carotid bruit. CHEST EXAMINATION: Bibasilar rales. No rhonchi or wheezes. No chest wall tenderness is noted on palpation or with deep breathing. HEART EXAMINATION: Regular rate and rhythm. S1, S2 heard. Diastolic murmur at the base and left sternal border, no gallops or rub. EXTREMITIES: 2+ peripheral pulses, trace bilateral pitting lower extremity edema and no calf tenderness. ASSESSMENT Acute on chronic diastolic heart failure Leukocytosis Acute kidney injury Coronary artery disease status post PTCA RCA History of SVT status post ablation Hypertension Dyslipidemia Valvular heart disease Pulmonary hypertension COPD PLAN Continue IV diuretics for today we will transition to oral starting tomorrow morning. Expect she can be discharged tomorrow if she continues to improve. Follow renal function and electrolytes in the morning. Discussed with nursing staff accurate documentation of output. Nurse Practitioner note has been reviewed, I agree with a documented findings and plan of care. Patient was seen and examined. Objective - Vital Signs Vital signs: Vital Signs Temp 97.6 F 02/07/21 04:54 Pulse 66 02/07/21 08:19 Resp 16 02/07/21 04:54 BP 125/78 02/07/21 04:54 Pulse Ox 92 L 02/07/21 04:54 Intake & Output 02/06/21 02/07/21 02/07/21 18:59 06:59 18:59 Output Total 400 Balance -400 Weight 77.2 kg Output: Urine 400 Other: Voiding Method Toilet Toilet Bedside Commode Bedside Commode # Voids 1 - Labs CBC & Chem 7: 02/05/21 18:21 02/07/21 06:29 Labs: Abnormal Lab Results - Last 24 Hours (Table) 02/07/21 Range/Units 06:29 Carbon Dioxide 37 H (22-30) mmol/L BUN 22 H (7-17) mg/dL Creatinine 1.26 H (0.52-1.04) mg/dL Microbiology - Last 24 Hours (Table) 02/05/21 19:56 Blood Culture - Preliminary Blood No Growth after 24 hours 02/05/21 19:56 Blood Culture - Preliminary Blood No Growth after 24 hours
[2021-02-07] MEDS ORDERED: FLUoxetine HCL 20 MG CAP PO PRN (14:37)
--- NOTE | 2021-02-07 17:57 | P.PN ---
Subjective Progress Note Date: 02/07/21 Adri Dominguez is an 80 yo F with PMH of CAD s/p stenting, COPD, chronic diastolic CHF, lymphedema who presented to the ED with worsening shortness of breath over the past few days. She notes a 15 lb weight gain in the past month or so and a few weeks ago was treated outpatient for recurrent lower extremity cellulitis. She has felt short of breath and that her legs have been heavier since then. She notes that over the past few days she has had to turn oxygen up to 5 LPM. On presentation labs significant for WBC 11k, Cr 1.17, BNP 7000, trop negative. Procalcitonin 0.15. 02/07/2021 diuresing well on Lasix IV push, (incomplete I&O). Creatinine 1.26 feels great, denies shortness of breath, denies chest pain, palpitations. Maintaining O2 sats in the 90s on 4 L nasal cannula. Bilateral lower extremity edema improving. Afebrile. Up to bedside commode, tolerating exertion well. Objective - Vital Signs Vital signs: Vital Signs Temp 97.6 F 02/07/21 11:57 Pulse 64 02/07/21 12:09 Resp 18 02/07/21 11:57 BP 122/72 02/07/21 11:57 Pulse Ox 86 L 02/07/21 11:57 Intake & Output 02/06/21 02/07/21 02/07/21 18:59 06:59 18:59 Output Total 400 Balance -400 Weight 77.2 kg Output: Urine 400 Other: Voiding Method Toilet Toilet Bedside Commode Bedside Commode # Voids 1 - Exam General: Sitting up in bed, NAD. Vitals reviewed Eyes: PERRL, EOMI, conjunctiva normal HENT: normocephalic, mucus membranes moist Neck: supple, no JVD Lungs: normal respiratory effort, no wheeze. Fine Rales at bases CV: Regular rate and rhythm, systolic murmur. 2+ edema BLE Abdomen: soft, nondistended, no organomegaly EXTREMITIES: Trace edema left leg, decreased edema of right leg with dressing clean dry and intact Skin: warm and dry. Neuro: A&Ox3, normal mood and affect - Labs CBC & Chem 7: 02/05/21 18:21 02/07/21 06:29 Labs: Abnormal Lab Results - Last 24 Hours (Table) 02/07/21 Range/Units 06:29 Carbon Dioxide 37 H (22-30) mmol/L BUN 22 H (7-17) mg/dL Creatinine 1.26 H (0.52-1.04) mg/dL Microbiology - Last 24 Hours (Table) 02/05/21 19:56 Blood Culture - Preliminary Blood No Growth after 24 hours 02/05/21 19:56 Blood Culture - Preliminary Blood No Growth after 24 hours Assessment and Plan Assessment: 1. Acute on chronic diastolic CHF. 2. Acute renal failure secondary to diuresing 3. CAD 4. Major depression. 5. Pulmonary hypertension 6. Hypertension Plan: Continue on current medication regime ,monitoring and symptomatic treatment. Diuretics as per cardiology. Strict I&O's. Close monitoring of renal function with repeat labs ordered for a.m. discharge planning in progress for tomorrow pending final DC recommendations and clearance from cardiology. The impression and plan of care has been dictated as directed. : I performed a history and examination of this patient, discussed the same with the dictator. I agree with the dictator's note ,documented as a scribe. Any additional findings or plans will be noted.
[2021-02-07] MEDS: FLUoxetine HCL 20 MG CAP PO SCH (20:46)
[2021-02-07] MEDS: BUDESONIDE 3 MG PO SCH (20:47)
[2021-02-08 04:38] VITALS: BP 117/63; RESP 18; TEMP 98.2
[2021-02-08 06:46] LABS: Anisocytosis Slight; Basophils # (A) 0.1 k/uL (0-0.2); Basophils % (A) 1 %; Eosinophils # (A) 0.1 k/uL (0-0.7); Eosinophils % (A) 1 %; HCT 39.6 % (34.0-46.0); HGB 11.6 gm/dL (11.4-16.0); Hypochromasia Marked; Lymphocytes # (A) 1.4 k/uL (1.0-4.8); Lymphocytes % (A) 15 %; MCH 27.1 pg (25.0-35.0); MCHC 29.4 g/dL (31.0-37.0); MCV 92.5 fL (80.0-100.0); Mean Platelet Volume 7.4; Monocytes # (A) 0.5 k/uL (0-1.0); Monocytes % (A) 5 %; Neutrophils # (A) 7.3 k/uL (1.3-7.7); Neutrophils % (A) 76 %; Platelet Count 246 k/uL (150-450); RBC 4.28 m/uL (3.80-5.40); RDW 16.6 % (11.5-15.5); WBC 9.5 k/uL (3.8-10.6)
[2021-02-08] MEDS: ALBUTEROL NEBULIZED 2.5 MG/3 ML INHALATION SCH ×2 (07:15→11:11)
[2021-02-08] MEDS: SYMBICORT 160-4.5 MCG INHALER INHALATION SCH (07:15)
[2021-02-08 07:29] VITALS: PULSE 80
[2021-02-08] MEDS ORDERED: FUROSEMIDE 40 MG TAB PO SCH (09:00)
[2021-02-08] MEDS: HEPARIN SODIUM,PORCINE/PF 5,000 UNIT/0.5 ML SYRINGE SQ SCH (09:14)
[2021-02-08] MEDS: PRAVASTATIN SODIUM 20 MG TAB PO SCH (09:15)
[2021-02-08] MEDS: ISOSORBIDE MONONITRATE ER 30 MG TAB.ER.24H PO SCH (09:15)
[2021-02-08] MEDS: METOPROLOL TARTRATE 25 MG TAB PO SCH (09:15)
[2021-02-08] MEDS: PANTOPRAZOLE 40 MG TABLET PO SCH (09:16)
[2021-02-08] MEDS: LOSARTAN 25 MG TAB PO SCH (09:16)
[2021-02-08 13:29] LABS: African American GFR (CKD) 48.7 (60.0-200.0); Anion Gap 8.5 mmol/L (4.00-12.00); Calcium 9.2 mg/dL (8.7-10.3); Carbon Dioxide 33.5 mmol/L (21.6-31.8); Non-African American GFR(CKD) 42.1 (60.0-200.0); Potassium 4.7 mmol/L (3.5-5.5)
--- NOTE | 2021-02-08 14:15 | P.PN ---
Subjective HISTORY OF PRESENTING ILLNESS This is a pleasant 80-year-old female past medical history significant for coronary artery disease status post PCI of the RCA, SVT status post ablation, hypertension, dyslipidemia, aortic and tricuspid regurgitation, pulmonary hypertension, COPD and chronic diastolic heart failure. She follows in the office with Dr. Lozano. We have been asked to see in consultation for heart failure. Presented to the hospital with a 3 day history of worsening exertional shortness of breath. She denies associated chest pain, dizziness or palpitations. She has had no recent medication changes and states there has not been any real significant changes in her diet. Chest x-ray on admission revealed congestive heart failure. She was initiated on IV diuretics. There is no documentation of urine output. EKG on arrival revealed sinus mechanism with PVCs and poor R-wave progression. Laboratory data reviewed, WBC 11.8, hemoglobin 12.7, platelets 275, sodium 140, potassium 4.0, creatinine 1.17, troponin negative 3, NT proBNP 7970, pro-calcitonin 0.15. Current daily cardiac medications include Lasix 40 mg by mouth twice a day, Imdur 30 mg twice a day, losartan 25 mg daily, Lopressor 25 mg twice a day and pravastatin 20 mg daily. Most recent echocardiogram obtained 11/27/2020 revealed preserved LV systolic function with normal ejection fraction, severe tricuspid regurgitation, moderate aortic regurgitation and a dilated right ventricle. 02/07/2021 Patient seen and examined sitting up in bed in no acute distress. Her breathing is back to baseline. Blood pressure 117/63 heart rate 84 afebrile and maint aining oxygen saturation on nasal cannula. Laboratory data reviewed, sodium 143, potassium 4.7 and creatinine 1.2. 24-hour urine output is 800 and mouth maintaining a negative fluid balance. PHYSICAL EXAMINATION CONSTITUTIONAL: No apparent distress. HEENT: Head is normocephalic. Pupils are equal, round. Sclerae anicteric. Mucous membranes of the mouth are moist. No JVD. No carotid bruit. CHEST EXAMINATION: Bibasilar rales. No rhonchi or wheezes. No chest wall tenderness is noted on palpation or with deep breathing. HEART EXAMINATION: Regular rate and rhythm. S1, S2 heard. Diastolic murmur at the base and left sternal border, no gallops or rub. EXTREMITIES: 2+ peripheral pulses, trace bilateral pitting lower extremity edema and no calf tenderness. ASSESSMENT Acute on chronic diastolic heart failure Leukocytosis Acute kidney injury Coronary artery disease status post PTCA RCA History of SVT status post ablation Hypertension Dyslipidemia Valvular heart disease Pulmonary hypertension COPD PLAN Stable for discharge from a cardiac perspective. Follow-up with Dr. Lozano in the office in 2 weeks. Nurse Practitioner note has been reviewed, I agree with a documented findings and plan of care. Patient was seen and examined. Objective - Vital Signs Vital signs: Vital Signs Temp 98.2 F 02/08/21 04:35 Pulse 80 02/08/21 11:23 Resp 18 02/08/21 04:35 BP 117/63 02/08/21 04:35 Pulse Ox 92 L 02/08/21 04:35 Intake & Output 02/07/21 02/08/21 02/08/21 18:59 06:59 18:59 Intake Total 320 Output Total 800 Balance -480 Weight 79 kg Intake: Oral 320 Output: Urine 800 Other: Voiding Method Toilet Bedside Commode # Voids 5 # Bowel Movements 1 - Labs CBC & Chem 7: 02/08/21 05:57 02/08/21 05:57 Labs: Abnormal Lab Results - Last 24 Hours (Table) 02/08/21 02/08/21 Range/Units 05:57 05:57 MCHC 29.4 L (31.0-37.0) g/dL RDW 16.6 H (11.5-15.5) % Carbon Dioxide 33.5 H (21.6-31.8) mmol/L Est GFR (CKD-EPI)AfAm 48.7 L (60.0-200.0) Est GFR (CKD-EPI)NonAf 42.1 L (60.0-200.0) Microbiology - Last 24 Hours (Table) 02/05/21 19:56 Blood Culture - Preliminary Blood No Growth after 48 hours 02/05/21 19:56 Blood Culture - Preliminary Blood No Growth after 48 hours
--- NOTE | 2021-02-08 15:18 | P.DS ---
Providers Date of admission: 02/05/21 20:59 Expected date of discharge: 02/08/21 Attending physician: Gabriel White MD Consults: 02/05/21 20:59 Consult Physician Routine Consulting Provider: Brian Thomas Consult Reason/Comments: CHF exacerbation Do you want consulting provider notified?: Yes Primary care physician: Gabriel White MD Hospital Course: Final Diagnoses: 1. Acute on chronic diastolic CHF. 2. Acute renal failure secondary to diuresing 3. CAD 4. Major depression. 5. Pulmonary hypertension 6. Hypertension Hospital course:Adri Dominguez is an 80 yo F with PMH of CAD s/p stenting, COPD, chronic diastolic CHF, lymphedema who presented to the ED with worsening shortness of breath over the past few days. She notes a 15 lb weight gain in the past month or so and a few weeks ago was treated outpatient for recurrent lower extremity cellulitis. She has felt short of breath and that her legs have been heavier since then. She notes that over the past few days she has had to turn oxygen up to 5 LPM. On presentation labs significant for WBC 11k, Cr 1.17, BNP 7000, trop negative. Procalcitonin 0.15. 02/07/2021 diuresing well on Lasix IV push, (incomplete I&O). Creatinine 1.26 feels great, denies shortness of breath, denies chest pain, palpitations. Maintaining O2 sats in the 90s on 4 L nasal cannula. Bilateral lower extremity edema improving. Afebrile. Up to bedside commode, tolerating exertion well. Significant clinical improvement. Patient has been cleared by cardiology for discharge. Patient will be discharged home today in a stable condition with guarded prognosis. The impression and plan of care has been dictated as directed. : I performed a history and examination of this patient, discussed the same with the dictator. I agree with the dictator's note ,documented as a scribe. Any additional findings or plans will be noted. Patient Condition at Discharge: Stable Plan - Discharge Summary New Discharge Prescriptions: Continue Isosorbide Mononitrate ER [Imdur] 30 mg PO BID Pravastatin Sodium [Pravachol] 20 mg PO DAILY Budesonide-Formot 160-4.5 Mcg [Symbicort 160-4.5 Mcg Inhaler] 2 puff INHALATION RT-BID Co Q-10(Unknown Dose) 1 tab PO DAILY Vitamin B-12(Unknown Dose) 1 tab PO DAILY Budesonide [Budesonide EC] 3 mg PO AC-TID Metoprolol Tartrate [Lopressor] 25 mg PO BID Furosemide [Lasix] 40 mg PO BID@0700,1300 SILVER sulfADIAZINE Cream [Silvadene 1% Cream] 1 applic TOPICAL DAILY Albuterol Nebulized [Ventolin Nebulized] 2.5 mg INHALATION RT-TID FLUoxetine HCL [PROzac] 40 mg PO HS PRN PRN Reason: increased anxiety day FLUoxetine HCL [PROzac] 40 mg PO HS Ergocalciferol [Vitamin D2 (1250 Mcg = 89135 Iu)] 1,250 mcg PO MO Multivit with Calcium,Iron,Min [Women's Multivitamin] 1 tab PO DAILY Omeprazole Magnesium [PriLOSEC OTC] 20 mg PO DAILY Losartan [Cozaar] 25 mg PO DAILY Discharge Medication List Isosorbide Mononitrate ER [Imdur] 30 mg PO BID 04/09/17 [History] Budesonide-Formot 160-4.5 Mcg [Symbicort 160-4.5 Mcg Inhaler] 2 puff INHALATION RT-BID 04/22/17 [History] Pravastatin Sodium [Pravachol] 20 mg PO DAILY 04/22/17 [History] Budesonide [Budesonide EC] 3 mg PO AC-TID 01/29/20 [History] Co Q-10(Unknown Dose) 1 tab PO DAILY 01/29/20 [History] Furosemide [Lasix] 40 mg PO BID@0700,1300 01/29/20 [History] Metoprolol Tartrate [Lopressor] 25 mg PO BID 01/29/20 [History] Vitamin B-12(Unknown Dose) 1 tab PO DAILY 01/29/20 [History] Albuterol Nebulized [Ventolin Nebulized] 2.5 mg INHALATION RT-TID 02/05/21 [History] Ergocalciferol [Vitamin D2 (1250 Mcg = 32572 Iu)] 1,250 mcg PO MO 02/05/21 [History] FLUoxetine HCL [PROzac] 40 mg PO HS 02/05/21 [History] FLUoxetine HCL [PROzac] 40 mg PO HS PRN 02/05/21 [History] Losartan [Cozaar] 25 mg PO DAILY 02/05/21 [History] Multivit with Calcium,Iron,Min [Women's Multivitamin] 1 tab PO DAILY 02/05/21 [History] Omeprazole Magnesium [PriLOSEC OTC] 20 mg PO DAILY 02/05/21 [History] SILVER sulfADIAZINE Cream [Silvadene 1% Cream] 1 applic TOPICAL DAILY 02/05/21 [History] Follow up Appointment(s)/Referral(s): Gabriel White MD [Primary Care Provider] - 02/15/21 2:30 pm [facility], [NON-STAFF] - 1 Week Ambulatory/Diagnostic Orders: Complete Blood Count w/diff [LAB.AMB] Time Frame: 3 Days, Location: None Selected Patient Instructions/Handouts: Heart Failure (DC) Activity/Diet/Wound Care/Special Instructions: Activity as tolerated Diet as tolerated check wt daily Discharge Disposition: HOME WITH HOME HEALTH SERVICES
== END 2021-02-08 12:48 | disposition home health service (06) | DRG 292 ==
LOC: EC 17:38 → 5NMEDONC 20:59
PROVIDERS: ADMIT Family Medicine; ATTEND Family Medicine
DX: I11.0 Hypertensive heart disease with heart failure (principal); N17.9 Acute kidney failure, unspecified; I50.33 Acute on chronic diastolic (congestive) heart failure; E78.5 Hyperlipidemia, unspecified; I49.3 Ventricular premature depolarization; I25.2 Old myocardial infarction; F32.9 Major depressive disorder, single episode, unspecified; I25.10 Atherosclerotic heart disease of native coronary artery without angina pectoris; J44.9 Chronic obstructive pulmonary disease, unspecified; I27.20 Pulmonary hypertension, unspecified; F41.9 Anxiety disorder, unspecified; I45.10 Unspecified right bundle-branch block; Z95.5 Presence of coronary angioplasty implant and graft; Z79.51 Long term (current) use of inhaled steroids; Z20.822 Contact with and (suspected) exposure to COVID-19; Z82.49 Family history of ischemic heart disease and other diseases of the circulatory system; Z87.891 Personal history of nicotine dependence; Z79.899 Other long term (current) drug therapy; Z80.3 Family history of malignant neoplasm of breast; Z80.8 Family history of malignant neoplasm of other organs or systems
CPT/HCPCS: 36415; 71046; 80048; 80053; 83880; 84145; 84484; 85025; 85610; 85730; 87040; 87635; 94640; 99285

== ENCOUNTER 2021-02-25 02:49 | Inpatient (IN) | payer MEDICARE, BC ==
[2021-02-25] MEDS ORDERED: HYDROmorphone 0.5 MG/0.5 ML SYRINGE IVP PRN (03:08)
[2021-02-25] MEDS ORDERED: ACETAMINOPHEN TAB 325 MG TAB PO PRN (03:08)
[2021-02-25] MEDS ORDERED: NALOXONE 0.4 MG/ML 1 ML VIAL IV PRN (03:08)
--- NOTE | 2021-02-25 03:14 | ED ---
Lower Extremity Injury HPI - General Chief Complaint: Extremity Injury, Lower Stated Complaint: Hip Pain Time Seen by Provider: 02/25/21 02:53 Source: patient Mode of arrival: EMS - History of Present Illness Initial Comments: This patient is an 80-year-old woman who arrives here as a transfer from [facility]. The patient states that she had been taken there after she had fallen at home. The patient states she falls frequently and uses a walker to ambulate. She lost her balance and fell at home and then was not able to move her left leg or bear any weight. The patient's transfer paperwork indicating a left hip intertrochanteric fracture. The patient denies any other pain or injury. She did have CT of the brain and cervical spine there was no acute injury. MD Complaint: hip injury -: hour(s) Injury: Hip: Left Type of Injury: blunt, other (Fall injury) Place: home Severity: severe Improves With: rest Worsens With: movement Context: fall Associated Symptoms: unable to bear weight Treatments Prior to Arrival: other - Related Data Home Medications Medication Instructions Recorded Confirmed Isosorbide Mononitrate ER [Imdur] 30 mg PO BID 04/09/17 02/25/21 Budesonide-Formot 160-4.5 Mcg 2 puff INHALATION RT-BID 04/22/17 02/25/21 [Symbicort 160-4.5 Mcg Inhaler] Pravastatin Sodium [Pravachol] 20 mg PO DAILY 04/22/17 02/25/21 Budesonide [Budesonide EC] 3 mg PO AC-TID 01/29/20 02/25/21 Furosemide [Lasix] 40 mg PO BID@0700,1300 01/29/20 02/25/21 Metoprolol Tartrate [Lopressor] 25 mg PO BID 01/29/20 02/25/21 Albuterol Nebulized [Ventolin 2.5 mg INHALATION RT-TID 02/05/21 02/25/21 Nebulized] Ergocalciferol [Vitamin D2 (1250 1,250 mcg PO MO 02/05/21 02/25/21 Mcg = 99126 Iu)] FLUoxetine HCL [PROzac] 40 mg PO HS 02/05/21 02/25/21 FLUoxetine HCL [PROzac] 40 mg PO HS PRN 02/05/21 02/25/21 Losartan [Cozaar] 25 mg PO DAILY 02/05/21 02/25/21 Multivit with Calcium,Iron,Min 1 tab PO DAILY 02/05/21 02/25/21 [Women's Multivitamin] Omeprazole Magnesium [PriLOSEC OTC] 20 mg PO DAILY 02/05/21 02/25/21 SILVER sulfADIAZINE Cream 1 applic TOPICAL DAILY 02/05/21 02/25/21 [Silvadene 1% Cream] Cyanocobalamin (Vitamin B-12) 1,000 mcg PO DAILY 02/25/21 02/25/21 [Vitamin B-12] Doxycycline Hyclate [Vibramycin] 100 mg PO BID 02/25/21 02/25/21 Ubidecarenone [Co Q-10] 300 mg PO DAILY 02/25/21 02/25/21 Allergies Allergy/AdvReac Type Severity Reaction Status Date / Time IV DYE Allergy Confusion Uncoded 02/26/21 06:40 Review of Systems ROS Statement: Those systems with pertinent positive or pertinent negative responses have been documented in the HPI. ROS Other: All systems not noted in ROS Statement are negative. Constitutional: Denies: fever, chills Respiratory: Reports: cough (Chronic), dyspnea (Chronic). Denies: hemoptysis Cardiovascular: Reports: edema. Denies: chest pain, palpitations Gastrointestinal: Denies: abdominal pain, vomiting, diarrhea Genitourinary: Denies: dysuria, hematuria Musculoskeletal: Reports: as per HPI, arthralgia (Left leg pain) Skin: Denies: rash Neurological: Denies: headache, weakness, numbness Past Medical History Past Medical History: COPD, Hypertension, Myocardial Infarction ([place]), Supraventricular Tachycardia (SVT) Additional Past Medical History / Comment(s): Ulcerative Colitis Last Myocardial Infarction Date:: 2006 History of Any Multi-Drug Resistant Organisms: None Reported Past Surgical History: Heart Catheterization, Heart Catheterization With Stent Additional Past Surgical History / Comment(s): Eyebrow and lid lift, cataract removal. RCA Stent placed "10 years ago in [place].". Recent heart cath 04/11/2017 Additional Past Anesthesia/Blood Transfusion Reaction / Comment(s): Patient stated that she was shaky, had a bad headache after anesthetic Date of Last Stent Placement:: 2006 Past Psychological History: Anxiety Smoking Status: Former smoker Past Alcohol Use History: None Reported Past Drug Use History: None Reported - Past Family History Father Family Medical History: Myocardial Infarction ([place]) Daughter(s) Family Medical History: Cancer Additional Family Medical History / Comment(s): States she has two daughters with breast cancer and 1 with pancreatic cancer General Exam General appearance: alert, in no apparent distress Head exam: Present: atraumatic, normocephalic Eye exam: Present: normal appearance. Absent: scleral icterus, conjunctival injection Respiratory exam: Present: rales (Lower lung antunez). Absent: respiratory distress, wheezes, rhonchi, stridor, accessory muscle use Cardiovascular Exam: Present: tachycardia, irregular rhythm, systolic murmur. Absent: diastolic murmur, rubs, gallop GI/Abdominal exam: Present: soft. Absent: distended, tenderness, guarding, rebound, rigid Extremities exam: Present: normal inspection, normal capillary refill, pedal edema. Absent: calf tenderness Back exam: Present: normal inspection. Absent: CVA tenderness (R), CVA tenderness (L) Neurological exam: Present: alert Skin exam: Present: warm, dry, intact, normal color. Absent: rash Course Vital Signs 02/25/21 02/25/21 02/25/21 02:51 04:00 05:00 Temperature 98.8 F Pulse Rate 89 69 93 Respiratory 20 22 22 Rate Blood Pressure 134/87 151/70 105/74 O2 Sat by Pulse 90 L 93 L 92 L Oximetry 02/25/21 02/25/21 02/25/21 06:00 07:15 08:34 Temperature Pulse Rate 68 100 75 Respiratory 21 18 18 Rate Blood Pressure 151/99 156/74 133/86 O2 Sat by Pulse 90 L 93 L 92 L Oximetry 02/25/21 10:09 Temperature Pulse Rate Respiratory Rate Blood Pressure 123/73 O2 Sat by Pulse 92 L Oximetry Disposition Clinical Impression: Intertrochanteric fracture of left hip Disposition: ADMITTED IP TO THIS HOSP Condition: Poor
[2021-02-25] MEDS: SODIUM CHLORIDE 0.9% 1,000 ML IV SCH (03:26)
[2021-02-25] MEDS: MORPHINE SULFATE 4 MG/ML SYRINGE IV PRN ×2 (08:33→19:41)
--- NOTE | 2021-02-25 10:44 | P.HPOR ---
History of Present Illness H&P Date: 02/25/21 Chief Complaint: Left hip pain. This is an 80-year-old female who was transferred from [facility] last evening with history of a closed intertrochanteric fracture of the left hip. The patient has multiple medical morbidities including chronic edema and cardiac issues. [facility] She reportedly lost her balance and fell. She has had multiple falls in the past several months. We are consulted for thecal evaluation and surgical treatment. Past Medical History Past Medical History: COPD, Hypertension, Myocardial Infarction ([place]), Supraventricular Tachycardia (SVT) Additional Past Medical History / Comment(s): Ulcerative Colitis Last Myocardial Infarction Date:: 2006 History of Any Multi-Drug Resistant Organisms: None Reported Past Surgical History: Heart Catheterization, Heart Catheterization With Stent Additional Past Surgical History / Comment(s): Eyebrow and lid lift, cataract removal. RCA Stent placed "10 years ago in [place].". Recent heart cath 04/11/2017 Additional Past Anesthesia/Blood Transfusion Reaction / Comment(s): Patient stated that she was shaky, had a bad headache after anesthetic Date of Last Stent Placement:: 2006 Past Psychological History: Anxiety Smoking Status: Former smoker Past Alcohol Use History: None Reported Past Drug Use History: None Reported - Past Family History Father Family Medical History: Myocardial Infarction ([place]) Daughter(s) Family Medical History: Cancer Additional Family Medical History / Comment(s): States she has two daughters with breast cancer and 1 with pancreatic cancer Medications and Allergies Home Medications Medication Instructions Recorded Confirmed Type Isosorbide Mononitrate ER [Imdur] 30 mg PO BID 04/09/17 02/25/21 History Budesonide-Formot 160-4.5 Mcg 2 puff INHALATION RT-BID 04/22/17 02/25/21 History [Symbicort 160-4.5 Mcg Inhaler] Pravastatin Sodium [Pravachol] 20 mg PO DAILY 04/22/17 02/25/21 History Budesonide [Budesonide EC] 3 mg PO AC-TID 01/29/20 02/25/21 History Furosemide [Lasix] 40 mg PO BID@0700,1300 01/29/20 02/25/21 History Metoprolol Tartrate [Lopressor] 25 mg PO BID 01/29/20 02/25/21 History Albuterol Nebulized [Ventolin 2.5 mg INHALATION RT-TID 02/05/21 02/25/21 History Nebulized] Ergocalciferol [Vitamin D2 (1250 1,250 mcg PO MO 02/05/21 02/25/21 History Mcg = 62104 Iu)] FLUoxetine HCL [PROzac] 40 mg PO HS 02/05/21 02/25/21 History FLUoxetine HCL [PROzac] 40 mg PO HS PRN 02/05/21 02/25/21 History Losartan [Cozaar] 25 mg PO DAILY 02/05/21 02/25/21 History Multivit with Calcium,Iron,Min 1 tab PO DAILY 02/05/21 02/25/21 History [Women's Multivitamin] Omeprazole Magnesium [PriLOSEC OTC] 20 mg PO DAILY 02/05/21 02/25/21 History SILVER sulfADIAZINE Cream 1 applic TOPICAL DAILY 02/05/21 02/25/21 History [Silvadene 1% Cream] Cyanocobalamin (Vitamin B-12) 1,000 mcg PO DAILY 02/25/21 02/25/21 History [Vitamin B-12] Doxycycline Hyclate [Vibramycin] 100 mg PO BID 02/25/21 02/25/21 History Ubidecarenone [Co Q-10] 300 mg PO DAILY 02/25/21 02/25/21 History Allergies Allergy/AdvReac Type Severity Reaction Status Date / Time No Known Allergies Allergy Verified 02/25/21 07:00 Physical Examination This is a pleasant 80-year-old female in no acute distress. Her is present at bedside. She is alert and oriented. She has some hearing impairment. Exam of the head neck reveal no obvious deformity. She has full cervical spine motion without difficulty or pain. No pain on palpation about cervical spine or paraspinal musculature. Exam of the upper extremities is unremarkable. She has full shoulder, elbow, wrist and finger motion bilaterally. Radial pulses are +2/4. Neurovascular status to the upper extremities intact. Exam of the lower extremities reveals shortening and external rotation to the left leg. She has cellulitis to the lower legs bilaterally. She has multiple abrasions throughout her lower extremities in various stages of healing. She has full foot and ankle motion bilaterally. Neurovascular status to the lower extremities is intact. Results X-rays of the pelvis and left hip reveal a comminuted intertrochanteric fracture left hip. No other fractures identified. Assessment and Plan (1) Intertrochanteric fracture of left hip Current Visit: Yes Status: Acute Code(s): S72.142A - DISPLACED INTERTROCHANTERIC FRACTURE OF LEFT FEMUR, INIT SNOMED Code(s): 194736416 Plan: The clinical and neck she findings are discussed with the patient and her family. It is recommended she undergo closed reduction with insertion of intertrochanteric nail of the left hip. The procedures discussed in detail including the possible risks and outcomes of surgery. It is discussed that she will likely require inpatient rehab postoperatively. We are planning surgery today if cleared medically.
--- NOTE | 2021-02-25 11:00 | XR ---
EXAMINATION TYPE: XR Hip LT and AP Pelvis DATE OF EXAM: 02/25/2021 COMPARISON: NONE HISTORY: Left hip fracture TECHNIQUE: A single AP view of the pelvis is obtained. Two views of the left hip are obtained. FINDINGS: There is a left intertrochanteric fracture with at least 3 major fracture fragments and foreshortenin g at the fracture site. Degenerative changes are noted into the pubic symphysis, both hips and lower lumbar spine. Vascular c alcifications are noted. IMPRESSION: Left hip fracture.
[2021-02-25] MEDS: ALBUTEROL NEBULIZED 2.5 MG/3 ML INHALATION SCH ×2 (11:47→19:11)
[2021-02-25] MEDS: ISOSORBIDE MONONITRATE ER 30 MG TAB.ER.24H PO SCH ×2 (13:38→19:37)
[2021-02-25] MEDS: FUROSEMIDE 40 MG TAB PO SCH (13:38)
[2021-02-25] MEDS: LOSARTAN 25 MG TAB PO SCH (13:38)
[2021-02-25] MEDS: PANTOPRAZOLE 40 MG TABLET PO SCH (13:38)
[2021-02-25] MEDS: METOPROLOL TARTRATE 25 MG TAB PO SCH ×2 (13:38→19:36)
[2021-02-25] MEDS: SYMBICORT 160-4.5 MCG INHALER INHALATION SCH (19:11)
[2021-02-25] MEDS: FLUoxetine HCL 20 MG CAP PO SCH (19:37)
--- NOTE | 2021-02-25 23:23 | P.CONS ---
History of Present Illness - Reason for Consult Consult date: 02/25/21 medical eval - Chief Complaint hip pain - History of Present Illness Adri Dominguez is an 81 yo F with PMH of CAD, hx stenting, diastolic CHF, lymphedema of both lower extremities who was brought to the ED as a transfer with L intertrochanteric femoral fracture. She was apparently ambulating in her home when she lost her balance and fell noticing pain and inability to bear weight. On presentation her vitals and labs were stable, CT brain and cervical spine negative. Review of Systems All systems: negative Constitutional: Denies chills, Denies fever Eyes: denies blurred vision, denies pain Ears, nose, mouth and throat: Denies headache, Denies sore throat Cardiovascular: Denies chest pain, Denies shortness of breath Respiratory: Denies cough Gastrointestinal: Denies abdominal pain, Denies diarrhea, Denies nausea, Denies vomiting Genitourinary: Denies dysuria, Denies hematuria Musculoskeletal: Reports limitation of motion, Reports muscle weakness, Denies myalgias Integumentary: Denies pruritus, Denies rash Neurological: Denies numbness, Denies weakness Psychiatric: Denies anxiety, Denies depression Endocrine: Denies fatigue, Denies weight change Past Medical History Past Medical History: COPD, Hypertension, Myocardial Infarction (NM), Supraventricular Tachycardia (SVT) Additional Past Medical History / Comment(s): Ulcerative Colitis Last Myocardial Infarction Date:: 2006 History of Any Multi-Drug Resistant Organisms: None Reported Past Surgical History: Heart Catheterization, Heart Catheterization With Stent Additional Past Surgical History / Comment(s): Eyebrow and lid lift, cataract removal. RCA Stent placed "10 years ago in [place].". Recent heart cath 017 Additional Past Anesthesia/Blood Transfusion Reaction / Comm: Patient stated that she was shaky, had a bad headache after anesthetic Date of Last Stent Placement:: 2006 Past Psychological History: Anxiety Smoking Status: Former smoker Past Alcohol Use History: None Reported Past Drug Use History: None Reported - Past Family History Father Family Medical History: Myocardial Infarction (NM) Daughter(s) Family Medical History: Cancer Additional Family Medical History / Comment(s): States she has two daughters with breast cancer and 1 with pancreatic cancer Medications and Allergies Home Medications Medication Instructions Recorded Confirmed Type Isosorbide Mononitrate ER [Imdur] 30 mg PO BID 08/03/17 06/21/21 History Budesonide-Formot 160-4.5 Mcg 2 puff INHALATION RT-BID 04/22/17 02/25/21 History [Symbicort 160-4.5 Mcg Inhaler] Pravastatin Sodium [Pravachol] 20 mg PO DAILY 04/22/17 02/25/21 History Budesonide [Budesonide EC] 3 mg PO AC-TID 01/29/20 02/25/21 History Furosemide [Lasix] 40 mg PO BID@0700,1300 01/29/20 02/25/21 History Metoprolol Tartrate [Lopressor] 25 mg PO BID 01/29/20 02/25/21 History Albuterol Nebulized [Ventolin 2.5 mg INHALATION RT-TID 02/05/21 02/25/21 History Nebulized] Ergocalciferol [Vitamin D2 (1250 1,250 mcg PO MO 02/05/21 02/25/21 History Mcg = 84397 Iu)] FLUoxetine HCL [PROzac] 40 mg PO HS 02/05/21 02/25/21 History FLUoxetine HCL [PROzac] 40 mg PO HS PRN 02/05/21 02/25/21 History Losartan [Cozaar] 25 mg PO DAILY 02/05/21 02/25/21 History Multivit with Calcium,Iron,Min 1 tab PO DAILY 02/05/21 02/25/21 History [Women's Multivitamin] Omeprazole Magnesium [PriLOSEC OTC] 20 mg PO DAILY 02/05/21 02/25/21 History SILVER sulfADIAZINE Cream 1 applic TOPICAL DAILY 02/05/21 02/25/21 History [Silvadene 1% Cream] Cyanocobalamin (Vitamin B-12) 1,000 mcg PO DAILY 02/25/21 02/25/21 History [Vitamin B-12] Doxycycline Hyclate [Vibramycin] 100 mg PO BID 02/25/21 02/25/21 History Ubidecarenone [Co Q-10] 300 mg PO DAILY 02/25/21 02/25/21 History Allergies Allergy/AdvReac Type Severity Reaction Status Date / Time No Known Allergies Allergy Verified 02/25/21 07:00 Physical Exam Vitals: Vital Signs Temp Pulse Pulse Resp BP BP Pulse Ox 02/25/21 20:00 98.1 F 91 18 133/65 90 L 02/25/21 19:23 96 02/25/21 19:11 96 86 L 02/25/21 14:00 97.9 F 104 H 18 149/71 90 L 02/25/21 12:00 88 02/25/21 11:50 92 02/25/21 10:45 98.6 F 100 19 145/81 90 L 02/25/21 10:09 123/73 92 L 02/25/21 08:34 75 18 133/86 92 L 02/25/21 07:15 100 18 156/74 93 L 02/25/21 06:00 68 21 151/99 90 L 02/25/21 05:00 93 22 105/74 92 L 02/25/21 04:00 69 22 151/70 93 L 02/25/21 02:51 98.8 F 89 20 134/87 90 L Intake and Output 02/25/21 02/25/21 02/26/21 14:59 22:59 06:59 Intake Total 0 Output Total 800 400 Balance -800 -400 Intake: Oral 0 Output: Urine 800 400 Other: Voiding Method Indwelling Catheter Weight 70.307 kg General: well nourished, well developed, NAD. Vitals reviewed Eyes: PERRL, EOMI, conjunctiva normal HENT: normocephalic, mucus membranes moist Neck: supple, no JVD Lungs: normal respiratory effort, no wheezes or rales CV: Regular rate and rhythm, no murmur. Peripheral pulses 2+ Abdomen: soft, nondistended, no organomegaly Lymph: no cervical or axillary LAD Skin: warm and dry. MSK: LLE shortened and in external rotation Neuro: A&Ox3, normal mood and affect Assessment and Plan (1) Intertrochanteric fracture of left hip Current Visit: Yes Status: Acute Code(s): S72.142A - DISPLACED INTERTROCHANTERIC FRACTURE OF LEFT FEMUR, INIT SNOMED Code(s): 072711061 Plan: 1. L hip fracture. Management per ortho, plan for surgery, pt medically stable for procedure 2. CAD. Continue with metoprolol, losartan, imdur 3. Chronic diastolic CHF. Continue lasix
[2021-02-26] MEDS: SODIUM CHLORIDE 0.9% 1,000 ML IV SCH (02:40)
[2021-02-26] MEDS: FUROSEMIDE 40 MG TAB PO SCH ×2 (05:03→13:30)
[2021-02-26] MEDS ORDERED: IV FLUID CONTINUATION 1,000 ML IV ONE (06:34)
[2021-02-26] MEDS ORDERED: TRANEXAMIC ACID 1,000 MG in SODIUM CHLORIDE 0.9% 100 ML IVPB PRN (07:00)
[2021-02-26] MEDS ORDERED: ceFAZolin 2 GM in SODIUM CHLORIDE 0.9% 100 ML IVPB ONE (07:00)
[2021-02-26 07:01] LABS: Glucose,Whole Blood 90 mg/dL (75-99)
[2021-02-26] MEDS: ONDANSETRON 4 MG/2 ML VIAL IVP PRN ×2 (07:05→18:09)
[2021-02-26] MEDS ORDERED: ROCURONIUM 10 MG/ML (5 ML VIAL) IV ONE (07:07)
[2021-02-26] MEDS ORDERED: PHENYLEPHRINE-0.9% NACL SYG 1,000 MCG/10 ML SYRINGE ONE (07:07)
[2021-02-26] MEDS ORDERED: TRANEXAMIC ACID 1,000 MG/10 ML VIAL ONE (07:07)
[2021-02-26] MEDS ORDERED: fentaNYL (PF) 50 MCG/ML 2 ML AMP ONE (07:07)
[2021-02-26] MEDS ORDERED: ETOMIDATE 2 MG/ML 10 ML VIAL ONE (07:07)
[2021-02-26] MEDS ORDERED: SUGAMMADEX SODIUM 500 MG/5 ML SDV IV ONE (07:07)
[2021-02-26] MEDS ORDERED: WATER FOR INJECTION, STERILE 10 ML VIAL IV ONE (07:07)
[2021-02-26] MEDS ORDERED: SUCCINYLCHOLINE CHLORIDE 100 MG/5 ML SYR IV ONE (07:07)
[2021-02-26] MEDS ORDERED: SODIUM CHLORIDE 0.9% 100 ML BAG ONE (07:07)
[2021-02-26] MEDS ORDERED: LIDOCAINE 1% INJ 10MG/ML (20 ML MDV) ONE (07:07)
[2021-02-26] MEDS ORDERED: ePHEDrine SULFATE/0.9% NACL/PF 50 MG/5 ML SYRINGE IV ONE (07:07)
--- NOTE | 2021-02-26 08:13 | P.OP ---
Date of Procedure: 02/26/21 Procedure(s) Performed: PREOPERATIVE DIAGNOSIS: Left hip intertrochanteric fracture. POSTOPERATIVE DIAGNOSIS: Left hip intertrochanteric fracture. OPERATION: Left hip intertrochanteric fracture closed reduction and intramedullary nailing using Synthes IT nail. CEMETERY VAULT INSTALLER: none ANESTHESIA: Gen. ESTIMATED BLOOD LOSS: 100 mL. COMPLICATIONS: None OPERATIVE FINDINGS: See dictation INDICATIONS: Mrs. Dominguez is an 80 year old female with a history of left intertrochanteric fracture. The patient has a significant lung history, with saturation in the high 80's on 6 l nasal canula. The patient presents to the operating room today for closed reduction and intramedullary nailing. I discussed the risks of surgery in detail as being inclusive of but not limited to: Bleeding, infection, scarring, discomfort, blood vessel and/or nerve damage, need for further surgery, malunion, nonunion, gait disturbance including persistent or permanent limp, limb length inequality, arthritis, hardware failure, blood clot, pulmonary embolism, , and other risks. The consent form has been signed. PROCEDURE: After appropriate consent was obtained, the patient was taken to the operating room and placed in supine position. General anesthetic was administered and after confirmation of adequate anesthesia, the patient was carefully placed in the supine position on the operating room table in the fracture table. The patient was placed up against a well-padded peroneal post. Care was taken to make sure about that all pressure points were adequately padded. The affected leg was placed in boot traction and the unaffected leg was placed in a well leg roman. Using gentle longitudinal distraction as well as adduction and internal rotation, the fracture was reduced as assessed by AP and lateral C-arm imaging. Once a satisfactory reduction had been obtained, the thigh was prepped and draped in the usual aseptic fashion using ChloraPrep. Ioban drape was used for the case and the patient received intravenous antibiotics and 1 gram IV tranexamic acid prior to incision. Timeout was called, confirming patient identity, side, procedure, and administration of antibiotics. The incision was then created with a #10 blade just proximal to the greater trochanter laterally. It was carried down through skin into the subcutaneous tissues and through fascia. Hemostasis was obtained using electrocautery. The tip of the greater trochanter was palpated and a guide pin was placed at the tip and directed into the femoral shaft as assessed with C-arm imaging. Once optimal pin position had been obtained, a 17 mm reamer was used over the guide pin to create a path for the IT nail. IT nail selected was assembled to the insertion jig on the back table and bushings were checked for accuracy. The nail was then inserted using gentle mallet taps until it was fully deployed. The amount of rotation of the implant was assessed based on the amount of anteversion of the femoral neck. This was rotated to match the patient's femoral neck anteversion and the helical blade guide was placed through the insertion jig and through an incision on the lateral side of the thigh more distal than the first. Once this guide was placed against the lateral cortex of the femur, a guide pin was drilled into the central region of the femoral head and neck as based on AP and lateral C-arm imaging. Once optimal pin position had been obtained, the guidewire was measured and appropriately sized helical blade was selected. The path for the helical blade was prepared using a tapered reamer. The helical blade was then inserted using gentle mallet taps along the guidewire until it was fully deployed. There was no displacement of the fracture during this step. The anti-rotation screw was locked down and the insertion apparatus for the helical blade was removed. The guide pin was then removed. Traction was then removed from the leg and the distal interlock was placed through the jig using standard technique. Finally, the insertion jig for the nail was removed and final C-arm images were taken and saved in both AP and lateral planes. The final x-rays showed satisfactory positioning of the implant and good reduction of the fracture. The top of the nail was plugged with a small quantity of bone wax and the incisions were then thoroughly irrigated with normal saline. A subsequent IV dose of 1 gram TXA was administered. Final hemostasis was obtained using electrocautery and closure of the fascia was performed using 0- Vicryl suture. 2-0 Vicryl suture was used in the subcutaneous tissues and darvin were used for the skin. Sterile dressing was then applied and the patient was carefully removed from the fracture table frame and placed onto the stretcher. The patient tolerated the procedure well. There were no complications and 100 ml of blood loss. The patient was then subsequently transferred to recovery room in stable condition. Sponge and needle counts were correct.
--- NOTE | 2021-02-26 08:43 | XR ---
Fluoroscopy HISTORY: Open reduction internal fixation 48 seconds fluoroscopy time supplied to the referring clinician. 2 intraoperative C-arm images docum ent the procedure. See dictated report from orthopedic surgery.
[2021-02-26] MEDS: ALBUTEROL NEBULIZED 2.5 MG/3 ML INHALATION SCH ×3 (08:47→19:40)
[2021-02-26] MEDS: SYMBICORT 160-4.5 MCG INHALER INHALATION SCH ×2 (08:47→19:40)
[2021-02-26 09:10] LABS: HCT 39.2 % (37.2-46.3); HGB 11.4 g/dL (12.0-15.0); MCH 26.8 pg (27.0-32.0); MCHC 29.1 g/dL (32.0-37.0); MCV 92.2 fL (80.0-97.0); Mean Platelet Volume 10.5 fL (9.5-12.2); Platelet Count 293 X 10*3/uL (140-440); RBC 4.25 X 10*6/uL (4.10-5.20); RDW 18.9 % (11.5-14.5); WBC 19.62 X 10*3/uL (4.50-10.00)
[2021-02-26] MEDS ORDERED: NALOXONE 0.4 MG/ML 1 ML VIAL IV PRN (09:21)
[2021-02-26] MEDS ORDERED: HYDROmorphone 0.2 MG/1 ML SYRINGE IVP PRN (09:21)
[2021-02-26] MEDS ORDERED: HYDROmorphone 0.5 MG/0.5 ML SYRINGE IVP PRN ×2 (09:21)
[2021-02-26] MEDS ORDERED: MAGNESIUM HYDROXIDE 2,400 MG/10 ML CUP PO PRN (09:21)
[2021-02-26] MEDS ORDERED: HYDROcodone/APAP 5-325MG 1 EACH TAB PO PRN (09:21)
[2021-02-26] MEDS: LOSARTAN 25 MG TAB PO SCH (10:06)
[2021-02-26] MEDS: METOPROLOL TARTRATE 25 MG TAB PO SCH ×2 (10:06→22:54)
[2021-02-26] MEDS: ISOSORBIDE MONONITRATE ER 30 MG TAB.ER.24H PO SCH ×2 (10:06→22:54)
[2021-02-26] MEDS: PANTOPRAZOLE 40 MG TABLET PO SCH (10:09)
--- NOTE | 2021-02-26 10:11 | P.PN ---
Progress Note - Text Progress Note Date: 02/26/21 Attempted to see, patient in OR. The impression and plan of care has been dictated as directed. : I performed a history and examination of this patient, discussed the same with the dictator. I agree with the dictator's note ,documented as a scribe. Any additional findings or plans will be noted.
[2021-02-26 10:37] LABS: Basophils # (A) 0.09 X 10*3/uL (0.00-0.10); Basophils % (A) 0.5 %; Eosinophils # (A) 0.01 X 10*3/uL (0.04-0.35); Eosinophils % (A) 0.1 %; Lymphocytes # (A) 1.16 X 10*3/uL (0.90-5.00); Lymphocytes % (A) 5.9 %; Monocytes # (A) 1.57 X 10*3/uL (0.20-1.00); Neutrophils # (A) 16.64 X 10*3/uL (1.80-7.70); Neutrophils % (A) 84.7 %
[2021-02-26] MEDS ORDERED: SODIUM CHLORIDE 0.9% 1,000 ML IV ONE (10:52)
[2021-02-26 14:53] LABS: African American GFR (CKD) 34.4 (60.0-200.0); Albumin/Globulin Ratio 1.15 (1.60-3.17); Anion Gap 13.2 mmol/L (4.00-12.00); Calcium 8.2 mg/dL (8.7-10.3); Carbon Dioxide 26.8 mmol/L (21.6-31.8); Globulin 2.6 g/dL (1.6-3.3); Non-African American GFR(CKD) 29.7 (60.0-200.0); Total Bilirubin 1.7 mg/dL (0.2-1.2); Total Protein 5.6 g/dL (6.2-8.2)
[2021-02-26] MEDS ORDERED: MIDODRINE 5 MG TAB PO STA (17:57)
[2021-02-26] MEDS ORDERED: ASPIRIN 81 MG PO SCH (21:00)
[2021-02-26] MEDS ORDERED: SENNOSIDES-DOCUSATE SODIUM 1 EACH TAB PO SCH (21:00)
[2021-02-26] MEDS: FLUoxetine HCL 20 MG CAP PO SCH (22:54)
[2021-02-27] MEDS: ONDANSETRON 4 MG/2 ML VIAL IVP PRN (02:52)
[2021-02-27 02:53] VITALS: RESP 14; TEMP 98
[2021-02-27] MEDS: SODIUM CHLORIDE 0.9% 1,000 ML IV SCH (03:15)
[2021-02-27 04:24] VITALS: BP 108/69; PULSE 96
[2021-02-27 05:13] LABS: Glucose,Whole Blood 31 mg/dL (75-99)
[2021-02-27] MEDS ORDERED: DEXTROSE 50% SYRINGE 50 ML IVP ONE ×3 (05:13→05:19)
[2021-02-27 05:21] LABS: Glucose,Whole Blood 53 mg/dL (75-99)
[2021-02-27 05:21] LABS: Glucose,Whole Blood 20 mg/dL (75-99)
[2021-02-27 05:24] LABS: Glucose,Whole Blood 286 mg/dL (75-99)
[2021-02-27 05:53] LABS: ALT 60 U/L (4-34); AST 211 U/L (14-36); African American GFR (CKD) 22 (>60 ml/min/1.73 sqM); Albumin 1.9 g/dL (3.5-5.0); Albumin/Globulin Ratio 0.9; Alkaline Phosphatase 66 U/L (38-126); Anion Gap 19 mmol/L; Blood Urea Nitrogen 34 mg/dL (7-17); Calcium 9.4 mg/dL (8.4-10.2); Carbon Dioxide 16 mmol/L (22-30); Chloride 102 mmol/L (98-107); Globulin 2.2 g/dL; Glucose 439 mg/dL (74-99); Magnesium 1.6 mg/dL (1.6-2.3); Non-African American GFR(CKD) 19 (>60 ml/min/1.73 sqM); Potassium 5.5 mmol/L (3.5-5.1); Sodium 137 mmol/L (137-145); Total Bilirubin 2.2 mg/dL (0.2-1.3); Total Protein 4.1 g/dL (6.3-8.2)
--- NOTE | 2021-02-27 06:01 | XR ---
EXAMINATION TYPE: XR chest 1V portable DATE OF EXAM: 02/27/2021 COMPARISON: 02/05/2021 HISTORY: Respiratory failure TECHNIQUE: Single view FINDINGS: Endotracheal tube is 2 mm from the chuck. There is some patchy airspace infiltrate in the right upper lobe and left lower lobe. There is no definite heart failure. Heart is enlarged. Thoracic aorta is atheromatous. IMPRESSION: Bilateral pneumonia. Pneumonia in the right upper lobe is new compared to old exam. Pneum onia left lower lobe appears worse than old exam. Moderate cardiomegaly.
--- NOTE | 2021-02-27 06:10 | P.EN ---
Code Blue Note Activated at 5:06 AM. Arrived in the scene shortly after. Reviewed the chart and discussed the case with RN. The patient was admitted to the hospital after a fall and left hip fracture and underwent operative repair. She was stable throughout the shift and subsequently found to be unresponsive by the RN. ACLS protocol was immediately initiated. She was noted to be in PA and was given epinephrine IV push 3, sodium bicarb IV push 1, and calcium chloride IV push 1. Her sugar was noted to be low at 31 and subsequently improved to 286 after 3 ampules of dextrose. ROSC was achieved at 5:17 AM. Patient was started on Levophed infusion and was transferred to the medical ICU. The patient again had PEA cardiac arrest at 5:43 AM and subsequent ROSC at 5:47 AM. The patient's daughter was notified who noted that the patient would not have wished to undergo any further CPR. She requested that her mother be made a DNR. Please refer to the code sheet for further details.
--- NOTE | 2021-02-27 11:46 | P.DS ---
Providers Date of admission: 02/25/21 03:08 Expected date of discharge: 02/27/21 Attending physician: Martin Deleon Consults: 02/25/21 03:09 Consult Physician Routine Consulting Provider: Gabriel White Consult Reason/Comments: Medical management Do you want consulting provider notified?: Yes Primary care physician: Gabriel White MD - Discharge Diagnosis(es) (1) Intertrochanteric fracture of left hip Status: Acute Hospital Course: This is an 80 -year-old female who is admitted to [facility] on 02/24/2021 after falling and sustaining injury to the left hip. On exam and x- ray in the emergency department he is found to have an intertrochanteric fracture of the left hip. She was admitted to our service for surgical intervention and care. Patient is taken to surgery for close reduction and insertion of intertrochanteric nail of the left hip. The procedure was performed without complication. The patient had issues with hypotension postoperatively but was relatively stable throughout the day. The patient was found unresponsive by nursing staff early this morning and a code was called. Please see event note by internal medicine regarding the code. The patient was ultimately resuscitated and transferred to the intensive care unit. The patient coded again and the daughter was called who did not wish to proceed with any further resuscitation efforts. The patient was declared early this morning at approximately 5:47 AM. Please refer to the code documentation for further details regarding the event. Patient Condition at Discharge: Poor Plan - Discharge Summary Discharge Rx Participant: No New Discharge Prescriptions: No Action Isosorbide Mononitrate ER [Imdur] 30 mg PO BID Pravastatin Sodium [Pravachol] 20 mg PO DAILY Budesonide-Formot 160-4.5 Mcg [Symbicort 160-4.5 Mcg Inhaler] 2 puff INHALATION RT-BID Budesonide [Budesonide EC] 3 mg PO AC-TID Metoprolol Tartrate [Lopressor] 25 mg PO BID Furosemide [Lasix] 40 mg PO BID@0700,1300 SILVER sulfADIAZINE Cream [Silvadene 1% Cream] 1 applic TOPICAL DAILY Albuterol Nebulized [Ventolin Nebulized] 2.5 mg INHALATION RT-TID FLUoxetine HCL [PROzac] 40 mg PO HS PRN PRN Reason: increased anxiety day FLUoxetine HCL [PROzac] 40 mg PO HS Ergocalciferol [Vitamin D2 (1250 Mcg = 95309 Iu)] 1,250 mcg PO MO Multivit with Calcium,Iron,Min [Women's Multivitamin] 1 tab PO DAILY Omeprazole Magnesium [PriLOSEC OTC] 20 mg PO DAILY Losartan [Cozaar] 25 mg PO DAILY Doxycycline Hyclate [Vibramycin] 100 mg PO BID Cyanocobalamin (Vitamin B-12) [Vitamin B-12] 1,000 mcg PO DAILY Ubidecarenone [Co Q-10] 300 mg PO DAILY Discharge Medication List Isosorbide Mononitrate ER [Imdur] 30 mg PO BID 04/09/17 [History] Budesonide-Formot 160-4.5 Mcg [Symbicort 160-4.5 Mcg Inhaler] 2 puff INHALATION RT-BID 04/22/17 [History] Pravastatin Sodium [Pravachol] 20 mg PO DAILY 04/22/17 [History] Budesonide [Budesonide EC] 3 mg PO AC-TID 01/29/20 [History] Furosemide [Lasix] 40 mg PO BID@0700,1300 01/29/20 [History] Metoprolol Tartrate [Lopressor] 25 mg PO BID 01/29/20 [History] Albuterol Nebulized [Ventolin Nebulized] 2.5 mg INHALATION RT-TID 02/05/21 [History] Ergocalciferol [Vitamin D2 (1250 Mcg = 88580 Iu)] 1,250 mcg PO MO 02/05/21 [History] FLUoxetine HCL [PROzac] 40 mg PO HS 02/05/21 [History] FLUoxetine HCL [PROzac] 40 mg PO HS PRN 02/05/21 [History] Losartan [Cozaar] 25 mg PO DAILY 02/05/21 [History] Multivit with Calcium,Iron,Min [Women's Multivitamin] 1 tab PO DAILY 02/05/21 [History] Omeprazole Magnesium [PriLOSEC OTC] 20 mg PO DAILY 02/05/21 [History] SILVER sulfADIAZINE Cream [Silvadene 1% Cream] 1 applic TOPICAL DAILY 02/05/21 [History] Cyanocobalamin (Vitamin B-12) [Vitamin B-12] 1,000 mcg PO DAILY 02/25/21 [History] Doxycycline Hyclate [Vibramycin] 100 mg PO BID 02/25/21 [History] Ubidecarenone [Co Q-10] 300 mg PO DAILY 02/25/21 [History] Follow up Appointment(s)/Referral(s): Gabriel White MD [Primary Care Provider] - 1-2 days Patient Instructions/Handouts: ORIF of Hip Fracture (DC) Discharge Disposition: - Preliminary Cause of Preliminary Cause of : Cardiac arrest
--- NOTE | 2021-03-01 10:32 | CDI ---
Documentation Clarification Form Date: 03/01/2021 10:12:40 AM From: Stephanie Ledbetter CCS, CCDS Admit Date: 02/25/2021 03:08:00 AM Patient Name: Adri Dominguez Visit Number: [id number] Discharge Date: 02/27/2021 08:12:00 AM ATTENTION: The Clinical Documentation Specialists (CDI) and [facility] Coding Staff appreciate your assistance in clarifying documentation. Please respond to the clarification below the line at the bottom and electronically sign. The CDI & [facility] Coding staff will review the response and follow-up if needed. Please note: Queries are made part of the Legal Health Record. If you have any questions, please contact the author of this message via ITS. Dr. Martin Deleon: Hypotension is documented in the 02/27 Discharge Summary: "The procedure was performed without complication. The patient had issues with hypotension postoperatively but was relatively stable throughout the day." Additional clarification is requested regarding the relationship, if any, that exists between the diagnosis of hypotension and the procedure. Patients Admitting Diagnosis: Left Hip Intertrochanteric Fracture after a fall at home. Post-Operative Diagnosis: Same. Procedure performed: Left hip intertrochanteric fracture closed reduction and intramedullary nailing using Synthes IT nail. History/Risk Factors per the 02/25 Orthopedic H/P: COPD, Hypertension, SVT, Ulcerative Colitis, CAD & FL w/stent Clinical Indicators: 80 yo female, presented to the ED on 02/25 via EMS from [facility] as a transfer after a fall at home. History of frequent falls. Unable to move her left leg or bear weight. Admit with Left Hip Intertrochanteric Fracture. 02/26 VS Preoperatively: T 98.8, P 89, R 20 - 22, BP 134/87 - 151/70; PO 90 4Lnc - 90 5Lnc 02/26 VS Postoperatively: T 98.7, P 64 - 84, R 16, BP 77/59, PO 88 6Lnc Treatment 02/25: IV Dilaudid 0.5 mg q3H/prn, IV Morphine 4 mg q4H prn, IV Zofran, IVl NaCl 1,000 mls @ 100 mls/hr q10H, INH Ventolin, INH Symbicort 02/26: IV Cefazolin, IV Dilaudid 0.125 mg q3H prn, IV NaCl 1,000 mls @ 999 mls/hr q1H, IV Cefazolin 02/27 Code Meds: IV push Levophed x3, IV NaBicarb push x1, IV Calcium Chloride push x1. What relationship, if any, exists between the diagnosis of Hypotension and the procedure: [ ] Hypotension is a complication of surgical procedure [ ] Hypotension is an expected outcome of the surgical procedure [ ] Hypotension is related to patients co-morbid condition(s), please specify condition(s): & not a complication of the procedure [ ] Other please specify: [ ] Unable to determine (Template Last Revised: November 2020) This patient's hypotension was likely caused by her underlying medical conditions of heart disease and COPD combined with general anesthesia. Blood loss during the case was minimal and the case itself was very short so her hypotension was not due to actual surgical blood loss. RAHEEM
--- NOTE | 2021-03-01 10:42 | CDI ---
Documentation Clarification Form Date: 03/01/2021 10:33:37 AM From: Stephanie Ledbetter CCS, CCDS Admit Date: 02/25/2021 03:08:00 AM Patient Name: Adri Dominguez Visit Number: [id number] Discharge Date: 02/27/2021 08:12:00 AM ATTENTION: The Clinical Documentation Specialists (CDI) and [facility] Coding Staff appreciate your assistance in clarifying documentation. Please respond to the clarification below the line at the bottom and electronically sign. The CDI & [facility] Coding staff will review the response and follow-up if needed. Please note: Queries are made part of the Legal Health Record. If you have any questions, please contact the author of this message via ITS. Dr. Martin Deleon: The patient was transferred from [facility] with a Left IT Hip Fracture, underwent IM Nailing & Closed Reduction of the same on 02/26. Postoperatively became unresponsive, in PEA Cardiac Arrest, Resuscitated several times, intubated & transferred to ICU where she subsequently . Based on this information and the findings below, is there an additional diagnosis that is clinically appropriate for this patient? Patients Admitting Diagnosis: Left Hip Intertrochanteric Fracture after a fall at home. Post-Operative Diagnosis: Same. Procedure performed: Left hip intertrochanteric fracture closed reduction and intramedullary nailing using Synthes IT nail. History/Risk Factors per the 02/25 Orthopedic H/P: COPD, Hypertension, SVT, Ulcerative Colitis, CAD & CO w/stent, Former smoker. Clinical Indicators: 80 yo female, presented to the ED on 02/25 via EMS from [facility] as a transfer after a fall at home. History of frequent falls. Unable to move her left leg or bear weight. Admit with Left Hip Intertrochanteric Fracture. 02/26 VS Preoperatively: T 98.8, P 89, R 20 - 22, BP 134/87 - 151/70; PO 90 4Lnc - 90 5Lnc 02/26 VS Postoperatively: T 98.7, P 64 - 84, R 16, BP 77/59, PO 88 6Lnc 02/27 VS Postoperatively: T 98.0, P 78 - 96, R 14, BP 66/51, PO 88 6L - 100% vent. Code Blue called @ 5:08 AM for patient being found unresponsive. ROSC achieved and patient was transferred to ICU. Went into cardiac arrest again @ 05:43 AM w/ROSC. The patient was then made DNR and ultimately . Treatment 02/25: IV Dilaudid 0.5 mg q3H/prn, IV Morphine 4 mg q4H prn, IV Zofran, IVl NaCl 1,000 mls @ 100 mls/hr q10H, INH Ventolin, INH Symbicort 02/26: IV Cefazolin, IV Dilaudid 0.125 mg q3H prn, IV NaCl 1,000 mls @ 999 mls/hr q1H, IV Cefazolin 02/27 Code Meds: IV push Levophed x3, IV NaBicarb push x1, IV Calcium Chloride push x1. 02/27 Respiratory Therapy Note: 05:15 AM: Intubated. Is there an additional diagnosis that is clinically appropriate for this patient? [ ] Acute Hypoxic Respiratory Failure [ ] Acute Hypercapnic Respiratory Failure [ ] Acute on Chronic Respiratory Failure, please specify type: hypoxic or hypercapnic, if known [ ] Chronic Respiratory Failure, please specify type: hypoxic or hypercapnic, if known [ ] Acute Respiratory Distress [ ] Acute Respiratory Insufficiency [ ] Other Diagnosis, please specify [ ] Unable to determine (Template Last Revised: November 2020) Unclear. This patient had ICU placement once she became hypotensive, please send query to the ICU attending and/or Neena Cortez, who dictated the discharge summary. Thank you. RAHEEM
--- NOTE | 2021-03-04 08:04 | CDI ---
Documentation Clarification Form Date: 03/04/2021 08:02:33 AM From: Stephanie Ledbetter CCS, CCDS Admit Date: 02/25/2021 03:08:00 AM Patient Name: Adri Dominguez Visit Number: [id number] Discharge Date: 02/27/2021 08:12:00 AM ATTENTION: The Clinical Documentation Specialists (CDI) and [facility] Coding Staff appreciate your assistance in clarifying documentation. Please respond to the clarification below the line at the bottom and electronically sign. The CDI & [facility] Coding staff will review the response and follow-up if needed. Please note: Queries are made part of the Legal Health Record. If you have any questions, please contact the author of this message via ITS. Dr. Gabriel White: The patient was transferred from [facility] with a Left IT Hip Fracture, underwent IM Nailing & Closed Reduction of the same on 02/26. Postoperatively became unresponsive, in PEA Cardiac Arrest, Resuscitated several times, intubated & transferred to ICU where she subsequently . Based on this information and the findings below, is there an additional diagnosis that is clinically appropriate for this patient? Patients Admitting Diagnosis: Left Hip Intertrochanteric Fracture after a fall at home. Post-Operative Diagnosis: Same. Procedure performed: Left hip intertrochanteric fracture closed reduction and intramedullary nailing using Synthes IT nail. History/Risk Factors per the 02/25 Orthopedic H/P: COPD, Hypertension, SVT, Ulcerative Colitis, CAD & CO w/stent, Former smoker. Clinical Indicators: 80 yo female, presented to the ED on 02/25 via EMS from [facility] as a transfer after a fall at home. History of frequent falls. Unable to move her left leg or bear weight. Admit with Left Hip Intertrochanteric Fracture. 02/26 VS Preoperatively: T 98.8, P 89, R 20 - 22, BP 134/87 - 151/70; PO 90 4Lnc - 90 5Lnc 02/26 VS Postoperatively: T 98.7, P 64 - 84, R 16, BP 77/59, PO 88 6Lnc 02/27 VS Postoperatively: T 98.0, P 78 - 96, R 14, BP 66/51, PO 88 6L - 100% vent. Code Blue called @ 5:08 AM for patient being found unresponsive. ROSC achieved and patient was transferred to ICU. Went into cardiac arrest again @ 05:43 AM w/ROSC. The patient was then made DNR and ultimately . Treatment 02/25: IV Dilaudid 0.5 mg q3H/prn, IV Morphine 4 mg q4H prn, IV Zofran, IVl NaCl 1,000 mls @ 100 mls/hr q10H, INH Ventolin, INH Symbicort 02/26: IV Cefazolin, IV Dilaudid 0.125 mg q3H prn, IV NaCl 1,000 mls @ 999 mls/hr q1H, IV Cefazolin 02/27 Code Meds: IV push Levophed x3, IV NaBicarb push x1, IV Calcium Chloride push x1. 02/27 Respiratory Therapy Note: 05:15 AM: Intubated. Is there an additional diagnosis that is clinically appropriate for this patient? [ ] Acute Hypoxic Respiratory Failure [ ] Acute Hypercapnic Respiratory Failure [ ] Acute on Chronic Respiratory Failure, please specify type: hypoxic or hypercapnic, if known [ ] Chronic Respiratory Failure, please specify type: hypoxic or hypercapnic, if known [ ] Acute Respiratory Distress [ ] Other Diagnosis, please specify [ ] Unable to determine (Template Last Revised: November 2020) Acute Hypoxic Respiratory Failure MTDD
== END 2021-02-27 08:12 | disposition expired | DRG 480 ==
LOC: EC 02:49 → 4SSUR 03:08 → 2SICU 02-27 06:07
PROVIDERS: ADMIT Orthopaedic Surgery; ATTEND Orthopaedic Surgery
PROC: 0QS736Z Reposition Left Upper Femur with Intramedullary Internal Fixation Device, Percutaneous Approach (ICD-10-PCS; principal; 2021-02-26 08:15)
PROC: 3E033XZ Introduction of Vasopressor into Peripheral Vein, Percutaneous Approach (ICD-10-PCS; 2021-02-27)
PROC: 5A12012 Performance of Cardiac Output, Single, Manual (ICD-10-PCS; 2021-02-27)
PROC: 0BH17EZ Insertion of Endotracheal Airway into Trachea, Via Natural or Artificial Opening (ICD-10-PCS; 2021-02-27)
PROC: 5A1935Z Respiratory Ventilation, Less than 24 Consecutive Hours (ICD-10-PCS; 2021-02-27)
DX: S72.142A Displaced intertrochanteric fracture of left femur, initial encounter for closed fracture (principal); J96.01 Acute respiratory failure with hypoxia; I50.32 Chronic diastolic (congestive) heart failure; I47.1 Supraventricular tachycardia; I11.0 Hypertensive heart disease with heart failure; I95.9 Hypotension, unspecified; I46.9 Cardiac arrest, cause unspecified; Z66 Do not resuscitate; I25.10 Atherosclerotic heart disease of native coronary artery without angina pectoris; R29.6 Repeated falls; W01.0XXA Fall on same level from slipping, tripping and stumbling without subsequent striking against object, initial encounter; F41.9 Anxiety disorder, unspecified; Z20.822 Contact with and (suspected) exposure to COVID-19; S80.812A Abrasion, left lower leg, initial encounter; S80.811A Abrasion, right lower leg, initial encounter; J44.9 Chronic obstructive pulmonary disease, unspecified; Z87.891 Personal history of nicotine dependence; Z82.49 Family history of ischemic heart disease and other diseases of the circulatory system; I25.2 Old myocardial infarction; Y92.009 Unspecified place in unspecified non-institutional (private) residence as the place of occurrence of the external cause; Z95.5 Presence of coronary angioplasty implant and graft; Z79.51 Long term (current) use of inhaled steroids; Z91.81 History of falling; Z79.899 Other long term (current) drug therapy; Z91.041 Radiographic dye allergy status
CPT/HCPCS: 71045; 73502; 80053; 83605; 83735; 84484; 85025; 86850; 86900; 86901; 87070; 87205; 87635; 94002; 94640; 94760; 99285